=== PATIENT | male | born 1975 | race Caucasian/White ===

== ENCOUNTER 2022-04-04 00:48 | Emergency (ER) | payer OTHER, SELFPAY ==
[2022-04-04] VITALS (10 sets, daily range): BP systolic 97–148; BP diastolic 43–100; PULSE 49–92; RESP 12–16; TEMP 36.6–37.2; O2SAT 95–99; BMI 25.1
--- NOTE | 2022-04-04 01:10 | ED_ITS ---
HPI - Overdose General Chief Complaint: Overdose Stated Complaint: od, 4mg narcan given Time Seen by Provider: 04/04/22 00:50 Source: patient and EMS Mode of arrival: EMS Limitations: no limitations History of Present Illness HPI Narrative: 46-year-old male homeless with history of IV drug abuse presented by EMS after was given Narcan for unresponsiveness. Patient admitted to used 2 bags of heroin IV today patient [place]stander [place] patient was given 4 mg of Narcan nasally by police that patient responded to the Narcan instantly no require for BVM or CPR, patient initially was calm was EMS able to ambulate to the ambulance a soon as arrived to the ED patient started to be agitated and complaining of total body ache with generalized muscle cramps. Related Data Allergies Allergy/AdvReac Type Severity Reaction Status Date / Time ibuprofen [IBUPROFEN] Allergy Unknown RASH Unverified 02/10/20 14:56 Review of Systems Review of Systems: All other systems are reviewed and are negative Constitutional: Reports as per HPI and Reports no additional constitutional complaints Eyes: Reports as per HPI and Reports no additional eye complaints Reports system reviewed and no additional complaints, except as documented Cardiovascular: Reports as per HPI and Reports no additional cardiovascular complaints Respiratory: Reports as per HPI and Reports no additional respiratory complaints Gastrointestinal: Reports as per HPI and Reports no additional gastrointestinal complaints Genitourinary: Reports no additional female genitourinary complaints Musculoskeletal: Reports no additional musculoskeletal complaints Skin/Breast: Reports system reviewed and no additional complaints, except as docu Psychiatric: Reports no additional psychiatric complaints Endocrine: Reports no additional endocrine complaints Hematologic/Lymphatic: Reports no additional hematologic/lymphatic complaints Allergic/Immunologic: Reports no additional allergic/immunologic complaints Reports system reviewed and no additional complaints, except as documented and Reports Abnormal speech present [facility] Social History Social History Advance Directives: No Physical Exam Vital Signs: Vital Signs: Last Vital Signs Temp 97.8 F 04/04/22 04:00 Pulse 66 04/04/22 04:00 Resp 16 04/04/22 04:00 BP 115/56 L 04/04/22 04:00 Pulse Ox 98 04/04/22 04:00 O2 Del Method 04/04/22 04:00 BMI result Body Mass Index 25.1 Vital signs have been reviewed as appeared to be correct. Blood pressure normal. Heart rate normal. Respiration rate normal. Temperature normal. Oxygen saturation normal. Appearance: Agitated, Oriented, disheveled. acute distress due to muscle spasm and generalized body ache after using Narcan. Head: Normal external exam. Normocephalic. Atraumatic. No Moreland signs noted. No raccoon eyes noted Eyes: PERRLA. EOMI. Conjunctiva and sclera normal. Eyelids normal. ENT: TM's Normal. Pharynx normal. Uvula midline. Moist mucous membranes. No trismus noted. No drooling noted. No muffled voice noted. Neck: Normal inspection. Neck supple. FROM. No adenopathy. Thyroid Normal. No meningeal signs. No neck mass noted. CVS: Normal heart rate and rhythm. Heart sound normal. No murmurs noted. Pulses normal throughout. Respiratory: No respiratory distress. Painless inspiration. Breath sounds normal. No wheezes/rales/rhonchi noted. Chest nontender. No accessory muscle usage noted or decreased air movement noted. Abdomen: Soft and nontender. Bowel sounds normal in all 4 quadrants. No distention noted. No organomegaly noted. No visible injury noted. Back: No CVA tenderness. Full range of motion noted. Skin: Skin warm and dry. Normal skin color. Normal skin turgor. No rashes/lesions/lacerations noted. Extremities: No lower extremity edema. Extremities exhibit normal range of motion. Extremities nontender. Neuro: Oriented X 3. Cranial nerve exam: II-XII are grossly intact No motor deficit. No sensory deficit. Reflexes normal. Course Course Course Narrative: 46-year-old male brought in after found unresponsive after using IV heroin patient was given Narcan initially patient reacted to Narcan with agitation and nausea and vomiting, patient now is asymptomatic, tolerate p.o. intake. Will discharge the patient after care team evaluation and will discharge with Narcan to go home. Reevaluation(s) Reevaluation #1: Physician observation started at 5:10 . Patient placed in physician observation because the patient needed more time for medication to work and to see PT/case management for evaluation and the need for placement patient's vital sign were stable, patient is alert and oriented , neuro exam unchanged, unremarkable rest of physical exam. Time: 05:10 Medications Administered Discontinued Medications Generic Name Dose Route Start Last Admin Trade Name Freq PRN Reason Stop Dose Admin Acetaminophen 650 mg 04/04/22 03:06 04/04/22 03:33 Acetaminophen 325 Mg Tablet PO 04/04/22 03:07 650 mg ONCE ONE Administration Discharge Plan Discharge Clinical Impression: Substance abuse, Accidental overdose Patient Disposition: Still a Patient Instructions: Polysubstance Abuse (ED) Referrals: Physician,None [Primary Care Provider] -
--- NOTE | 2022-04-04 02:23 | PC.NURSE ---
pt ask for some water drank 240 ml
--- NOTE | 2022-04-04 03:31 | PC.NURSE ---
assumed care of patient. patient rounding complete. report headache. VSS. will continue to round hourly..
[2022-04-04] MEDS: Acetaminophen 325 MG TABLET 650 MG PO (03:33)
--- NOTE | 2022-04-04 04:02 | PC.NURSE ---
0400 rounding done vs taken pt was giving ham sandwich and naren lucinda for snack ,pt watching television ,call [facility] within reach .
--- NOTE | 2022-04-04 07:06 | PC.NURSE ---
pt asleep at this time. resp even and unlabored.
--- NOTE | 2022-04-04 10:37 | PC.NURSE ---
seems a little aggitated over trying to be placed at [facility] [place]
[2022-04-04 11:40] LABS: MANUAL DIFF FLAG NO
[2022-04-04 11:41] LABS: Basophils Absolute Auto 0.1 X10*3/uL (0.0-0.2); Basophils Percent Auto 0.6 % (0-2); Eosinophils Absolute Auto 0.2 X10*3/uL (0.0-0.4); Eosinophils Percent Auto 1.8 % (0-4); Hematocrit 33.4 % (42.0-52.0); Hemoglobin 10.9 g/dl (14.0-18.0); Imm Gran Abs Auto 0.06 X10*3/uL (0.00-0.03); Imm Gran Pct Auto 0.5 % (0.0-0.4); Lymphocytes Absolute Auto 3.1 X10*3/uL (1.2-4.9); Lymphocytes Percent Auto 27.6 % (20-40); Mean Corpuscular HGB Conc 32.6 g/dl (31.0-36.0); Mean Corpuscular Hemoglobin 28.5 pg (27.0-33.0); Mean Corpuscular Volume 87.2 fL (80.0-98.0); Monocytes Absolute Auto 0.7 X10*3/uL (0.1-1.2); Monocytes Percent Auto 6.3 % (2-11); Neutrophils Percent Auto 63.2 % (45-73); Platelet Count 330 X10*3/uL (160-400); Red Blood Count 3.83 X10*6/uL (4.60-5.80); Red Cell Distribution Width 14.6 % (11.0-16.0); White Blood Count 11.2 X10*3/uL (4.8-10.8)
[2022-04-04 11:59] LABS: Alanine Aminotransferase 74 U/L (0-40); Albumin Level 4.1 g/dL (3.5-5.0); Alkaline Phosphatase 113 U/L (39-117); Anion Gap 13 (12-20); Aspartate Amino Transferase 33 U/L (5-37); Bilirubin Total 0.3 mg/dL (0.0-1.0); Blood Urea Nitrogen 23 mg/dL (9-16); Calcium 9.1 mg/dL (8.4-10.2); Carbon Dioxide 31 mmol/L (22-29); Chloride 99 mmol/L (96-108); Estimated Glomerular Filt Rate > 60; Glucose Random 105 mg/dL (60-115); Potassium 4.4 mmol/L (3.3-5.1); Sodium 139 mmol/L (135-145); Total Protein 7.1 g/dL (6.5-8.0)
[2022-04-04 12:01] LABS: COVID-19 Test Negative (Negative); IDNOW Serial# 9DB6401D
[2022-04-04] MEDS: methADONE HCl 20 MG/2 ML ORAL.CONC 35 MG PO (13:23)
--- NOTE | 2022-04-04 15:18 | HO.SUDE ---
Met with pt in [facility] to discuss substance use. Pt semi difficult to engage in conversation due to agitation from having to transfer from main ED to the pod. Pt also irritable due to withdrawal symptoms and wanting to use a phone to call [facility]. Pt has had a [facility] for quite some time, has many admissions to [facility] and other levels of care. Pt reports leaving [facility] yesterday, 04/03, prior to completing treatment. Later that day, pt reports using 1 bag heroin, IV, which resulted in overdose. Pt reports this is 5th overdose and tearfully states I know if I go back out there I am going to . I know I shouldn't have left detox. Prior to [facility], pt reports using heroin, 1 bundle daily IV, as well as cocaine, IV, as much as I can get. Pt also reports drinking a pint of vodka daily. Pt had been receiving methadone earlier this year, believes he was on 40 mg. However, pt would have positive breathalyzers and was therefore unable to continue dosing. Pt is interested in receiving methadone and connecting to an [facility]TP. Pt reports that while at [facility], the plan was to increase to a stable dose and discharge with an appt at the OTP. Pt left prior to this being set up. Pt educated regarding [facility], as well as their walk in hours. Pt would like to return to [facility] to complete treatment there, however, [facility] unable to accept pt due to being discharged yesterday. [facility] has bed availabilty, will be calling shortly to complete phone intake. Discussed with CARE Team, RN. Spoke with KARENA Waddell, at [facility] regarding pts last methadone dose. Pt received 35 mg on 04/03. Spoke with provider regarding pts withdrawal symptoms, pt to receive 35 mg methadone.
--- NOTE | 2022-04-04 16:15 | PC.NURSE ---
While on the phone with [facility] center- pt handed the phone back to me saying I just can't do this, no one is listening to me . Luci THURSTON aware.
--- NOTE | 2022-04-04 16:20 | PC.NURSE ---
Addendum entered by Linda Durbin 04/04/22 16:33: Pt is now agreeable to go [facility] at this time. Original Note: Care team at bedside to notify pt that he must go to detox or leave facility
== END 2022-04-04 20:42 | disposition home or self-care (01) ==
PROVIDERS: Emergency Provider Emergency Medicine
DX: T40.1X1A Poisoning by heroin, accidental (unintentional), initial encounter (principal); Y92.521 Bus station as the place of occurrence of the external cause; F19.10 Other psychoactive substance abuse, uncomplicated; R45.1 Restlessness and agitation; M79.10 Myalgia, unspecified site; Z20.822 Contact with and (suspected) exposure to COVID-19
CPT/HCPCS: 80053; 85025; 87635; 99284; 99285

== ENCOUNTER 2022-08-10 18:12 | Emergency (ER) | payer OTHER, SELFPAY ==
[2022-08-10 18:30] VITALS: BP 125/55; BP 156/68; PULSE 58; PULSE 60; RESP 14; TEMP 36.6; O2SAT 96; O2SAT 97; BMI 23.7
--- NOTE | 2022-08-10 18:33 | PC.NURSE ---
pt to go back to [facility] when cleared medically, [facility] will pick pt up upon dc
--- NOTE | 2022-08-10 20:16 | ED.GENADULT ---
HPI - General Adult General Chief complaint: General Medical Stated complaint: LEG RESTLESNESS Time Seen by Provider: 08/10/22 20:16 Source: patient Mode of arrival: EMS Limitations: no limitations History of Present Illness HPI narrative: 46-year-old male who presents emergency department for evaluation of twitching in his lower extremities x3 days. The patient is currently in in-patient at [facility] for detox from alcohol and opiates. The patient states that he has been there for a at least a week. He states that he was drinking 1 pt of vodka per day he was also using opiates/heroin. He is currently on methadone. He states that at [facility] did add several new medications including pantoprazole, Latuda and Paxil. The patient states that his lower extremities continue to twitch, he also states he feels like his face and arms or twitching as well. He denied fever, chills, rhinorrhea, sore throat, cough. He denied numbness or weakness. The patient states that he is trying to get into a long-term treatment program is going to be at [facility] for several weeks until you get into another program. Related Data Previous Rx's Medication Instructions Recorded lorazepam 1 mg tablet (Ativan) 1 mg PO TID PRN Restless leg #10 08/11/22 tabs Allergies Allergy/AdvReac Type Severity Reaction Status Date / Time ibuprofen [IBUPROFEN] Allergy Unknown RASH Verified 04/04/22 13:22 Review of Systems Review of Systems: Yes all other systems are reviewed and are negative [facility] Past Medical History [facility] Narrative: Past medical history: Patient has history of injection drug use and has had several overdoses in the past. He also has a history of alcohol use disorder. Social history: He does smoke cigarettes. He does admit to drinking at least 1 pt of alcohol per day but has not been drinking since he has been at [facility]. He also admits to using injection heroin and he is on methadone. Social History Social History Alcohol intake: former Smoked in Last 30 Days: Yes Use of substances other than those prescribed or required for medical reasons: No Substance Use Type: Opiates Advance Directives: No Advance Directives Information Provided: Yes Physical Exam ED Vital Signs: Vital Signs - 24 hr 08/10/22 18:30 03/18/23 21:29 Temperature 97.8 F 97.5 F Pulse Rate 60 54 Respiratory Rate 14 14 Blood Pressure 125/55 L 112/57 L Pulse Oximetry 97 95 Oxygen Delivery Method Room Air Room Air BMI result Body Mass Index 23.7 Const General: cooperative and no acute distress Orientation/consciousness: oriented to person and oriented to place Limitations: no limitations HENMT Head: Yes normal to inspection, Yes normocephalic and Yes atraumatic Ears: external ears normal General nose exam: Normal external nose present Face and sinus: Yes normal facial exam Mouth: Normal oral and palatal mucosa present Throat: Yes posterior oropharynx normal Eyes General: appearance normal, both eyes and all related structures Pupils: Equal, round and reactive pupils present Neck Neck: Yes normal visual inspection, Yes no lymphadenopathy, Yes trachea midline and Yes supple Chest Chest palpation & inspection: normal inspection of the chest and normal palpation of entire chest wall Resp Effort & Inspection: normal respiratory effort and able to speak in complete sentences Auscultation: clear to auscultation bilaterally Cardio Rate: regular rate Rhythm: regular rhythm Heart sounds: S1 normal heart sound present, S2 normal heart sound present and no murmurs GI Inspection: Yes normal to inspection Palpation (GI): Soft to palpation, nontender and no guarding Auscultation: normal bowel sounds General: Yes no CVA tenderness Back/Spine/Pelvis Back: no CVA tenderness Skin General skin exam: no rashes or lesions noted Neuro General: oriented to person and oriented to place Cranial nerves: Yes CN's II-XII intact bilaterally and Yes Equal, round and reactive pupils present Cognition (Neuro): normal cognition Motor exam (neuro): 5/5 motor strength present throughout Extrem General: Yes normal to inspection Psych Appearance: grossly normal Speech and movement: Normal speech and movement present Affect: normal affect Attitude: cooperative Thought process: Normal thought process present Thought content: Normal thought content present Medications Administered Discontinued Medications Generic Name Dose Route Start Last Admin Trade Name Freq PRN Reason Stop Dose Admin Diphenhydramine HCl 50 mg 08/10/22 20:28 08/10/22 20:45 Diphenhydramine Hcl 25 Mg Capsule PO 08/10/22 20:29 50 mg ONCE ONE Administration Lorazepam 2 mg 08/10/22 21:30 08/10/22 21:37 Lorazepam 1 Mg Tablet PO 08/10/22 21:31 2 mg ONCE STA Administration Medical Decision Making Medical Decision Making [facility] Narrative: 46-year-old male who presents emergency department for evaluation of twitching of his lower extremities, twitching of his face and arms x3 days. Patient does have a history of opiate use and alcohol use disorder and is currently in a detox program at [facility] x1 week. Patient has been started on several new medications including Latuda and Paxil. The patient's vital signs were unremarkable. Patient's physical examination was also unremarkable. I ordered laboratory evaluation to include CBC, CMP, Magnesium, phosphorus. 0009: My independent interpretation of patient's labs are as follows: Normocytic anemia with H&H 11.6 and 35.2 which is chronic. CMP was normal except for an elevated ALT of 44. Magnesium and phosphorus were normal. At this time I do not have a clear cause for the patient's twitching but I am concerned that it may be a side effect of his Latuda which can cause extra pyramidal symptoms. I did discuss this with the patient. He was treated with Benadryl 50 mg orally and Ativan 2 mg orally with improvement of his symptoms. The patient is feeling better and he will be discharged back to [facility]. My recommendation is to stop the Latuda and give the patient Benadryl 50 mg 3 times a day as needed for twitching and Ativan 1 mg 3 times a day as needed for twitching has not relieved by the Benadryl. Lab Data 08/10/22 21:49 08/10/22 21:49 Labs: Lab Results 08/10/22 08/10/22 Range/Units 21:49 21:49 WBC 5.5 (4.8-10.8) X10*3/uL RBC 4.15 L (4.60-5.80) X10*6/uL Hgb 11.6 L (14.0-18.0) g/dl Hct 35.2 L (42.0-52.0) % MCV 84.8 (80.0-98.0) fL MCH 28.0 (27.0-33.0) pg MCHC 33.0 (31.0-36.0) g/dl RDW 13.7 (11.0-16.0) % Plt Count 218 D (160-400) X10*3/uL MPV 11.1 (9.4-12.4) fL Immature Gran % (Auto) 0.5 H (0.0-0.4) % Neut % (Auto) 34.0 L (45-73) % Lymph % (Auto) 52.8 H (20-40) % Gilliam % (Auto) 9.3 (2-11) % Eos % (Auto) 2.7 (0-4) % Baso % (Auto) 0.7 (0-2) % Lymph # (Auto) 2.9 (1.2-4.9) X10*3/uL Gilliam # (Auto) 0.5 (0.1-1.2) X10*3/uL Eos # (Auto) 0.2 (0.0-0.4) X10*3/uL Baso # (Auto) 0.0 (0.0-0.2) X10*3/uL Abs Immat Gran (auto) 0.03 (0.00-0.03) X10*3/uL Absolute Neuts (auto) 1.9 L (2.0-8.3) x10*3/uL Absolute Nucleated RBC 0.000 (0.0-0.012) X10*3/uL Nucleated RBC % (auto) 0.0 (0.0-0.2) /100WBC Sodium 139 (135-145) mmol/L Potassium 4.0 (3.3-5.1) mmol/L Chloride 102 (96-108) mmol/L Carbon Dioxide 27 (22-29) mmol/L Anion Gap 14 (12-20) BUN 26 H (9-16) mg/dL Creatinine 0.84 (0.5-1.4) mg/dL Estim Creat Clear Calc 126.3 Estimated GFR > 60 Random Glucose 113 (60-115) mg/dL Calcium 9.5 (8.4-10.2) mg/dL Phosphorus 4.5 (2.7-4.5) mg/dL Magnesium 1.7 (1.6-2.6) mg/dL Total Bilirubin 0.3 (0.0-1.0) mg/dL AST 26 (5-37) U/L ALT 44 H (0-40) U/L Alkaline Phosphatase 78 (39-117) U/L Total Protein 7.1 (6.5-8.0) g/dL Albumin 4.1 (3.5-5.0) g/dL Discharge Plan Discharge Clinical Impression: Adverse drug reaction, Combined pyramidal-extrapyramidal syndrome Patient Disposition: Xfer Other Transfer Details: [facility] Additional Instructions: Your laboratory evaluation included a CBC, CMP, magnesium and phosphorus. All of these tests were normal. At this time I believe that your twitching is in your face, arms and legs may be related to the Latuda and this is causing extra pyramidal symptoms. I am recommending that you stop this medication Recommending that you take Benadryl 50 mg every 6 hours as needed for twitching this and for twitching has not relieved by these medications I am recommending that you take Ativan 1 mg every 6 hours as needed. At this time, I believe you can be transferred back to [facility] for further management of your opiate and alcohol use disorder Prescriptions: New lorazepam [Ativan] 1 mg tablet 1 mg PO TID PRN (Reason: Restless leg) Qty: 10 0RF Rx Instructions: Patient may request partial fill
[2022-08-10] MEDS: diphenhydrAMINE HCL 25 MG CAPSULE 50 MG PO (20:45)
[2022-08-10 21:29] VITALS: BP 112/57; PULSE 54; RESP 14; TEMP 36.4; O2SAT 95
[2022-08-10] MEDS: LORazepam 1 MG TABLET 2 MG PO (21:37)
[2022-08-10 21:53] LABS: MANUAL DIFF FLAG NO
[2022-08-10 22:13] LABS: Basophils Percent Auto 0.7 % (0-2); Eosinophils Absolute Auto 0.2 X10*3/uL (0.0-0.4); Eosinophils Percent Auto 2.7 % (0-4); Hematocrit 35.2 % (42.0-52.0); Hemoglobin 11.6 g/dl (14.0-18.0); Imm Gran Abs Auto 0.03 X10*3/uL (0.00-0.03); Imm Gran Pct Auto 0.5 % (0.0-0.4); Lymphocytes Absolute Auto 2.9 X10*3/uL (1.2-4.9); Lymphocytes Percent Auto 52.8 % (20-40); Mean Corpuscular Volume 84.8 fL (80.0-98.0); Mean Platelet Volume 11.1 fL (9.4-12.4); Monocytes Absolute Auto 0.5 X10*3/uL (0.1-1.2); Monocytes Percent Auto 9.3 % (2-11); Neutrophils Absolute Auto 1.9 x10*3/uL (2.0-8.3); Platelet Count 218 X10*3/uL (160-400); Red Blood Count 4.15 X10*6/uL (4.60-5.80); Red Cell Distribution Width 13.7 % (11.0-16.0); White Blood Count 5.5 X10*3/uL (4.8-10.8)
[2022-08-10 22:16] LABS: Alanine Aminotransferase 44 U/L (0-40); Albumin Level 4.1 g/dL (3.5-5.0); Alkaline Phosphatase 78 U/L (39-117); Anion Gap 14 (12-20); Aspartate Amino Transferase 26 U/L (5-37); Bilirubin Total 0.3 mg/dL (0.0-1.0); Blood Urea Nitrogen 26 mg/dL (9-16); Calcium 9.5 mg/dL (8.4-10.2); Carbon Dioxide 27 mmol/L (22-29); Chloride 102 mmol/L (96-108); Creatinine Clr Calc Pharmacy 126.3; Estimated Glomerular Filt Rate > 60; Glucose Random 113 mg/dL (60-115); Magnesium 1.7 mg/dL (1.6-2.6); Phosphorus 4.5 mg/dL (2.7-4.5); Sodium 139 mmol/L (135-145); Total Protein 7.1 g/dL (6.5-8.0)
[2022-08-11 00:49] VITALS: BP 115/73; PULSE 56; RESP 12; TEMP 36.4; O2SAT 99
--- NOTE | 2022-08-11 01:21 | PC.NURSE ---
Discharge instructions given/explained to pt Ambulates safely/independently No SOB, able to speak in full sentences No respiratory distress aox3 pt to be picked up by [facility]
== END 2022-08-11 00:46 | disposition other institution (70) ==
PROVIDERS: Emergency Provider Emergency Medicine Emergency Medical Services
DX: G25.79 Other drug induced movement disorders (principal); T43.595A Adverse effect of other antipsychotics and neuroleptics, initial encounter; Y92.199 Unspecified place in other specified residential institution as the place of occurrence of the external cause; D64.9 Anemia, unspecified; F11.20 Opioid dependence, uncomplicated; Z79.899 Other long term (current) drug therapy
CPT/HCPCS: 36415; 80053; 83735; 84100; 85025; 99283; 99284

== ENCOUNTER 2022-08-23 14:07 | Emergency (ER) | payer OTHER, SELFPAY ==
[2022-08-23 14:34] VITALS: BP 126/86; PULSE 88; RESP 17; TEMP 36.1; O2SAT 97; BMI 25.0
--- NOTE | 2022-08-23 14:36 | ED.GENADULT ---
HPI - General Adult General Chief complaint: Eye Problems Stated complaint: L eye swelling Time Seen by Provider: 08/23/22 14:40 Source: patient Mode of arrival: ambulatory Limitations: no limitations History of Present Illness HPI narrative: Patient is a 46 year old assigned male at with a history of IVDU (1 month sober) presenting to the emergency department today with left eyebrow swelling and pain. Patient states that yesterday he woke up with left eye brow swelling. Patient states that the swollen area opened some and was leaking a small amount of blood. Patient denies any dizziness, lightheadedness, abdominal pain, nausea, vomiting, fever, chills, blurry vision, double vision, loss of vision, chest pain, difficulty breathing, shortness of breath, back pain, night sweats, pain with urination, increased urinary frequency, increased urinary urgency, blood in his urine or stool, syncope or a near syncopal episode, recent trauma or falls, bowel incontinence, bladder incontinence, bowel retention, bladder retention, or any other complaints at this time. Onset (ago): day(s) (1) Location: eyes (eyebrow) and left Radiation: non-radiation Severity: mild Severity scale (1-10): 3 Quality: dull Pain Consistency: constant Relieving factors: none Exacerbating factors: none Associated symptoms: denies other symptoms Treatments prior to arrival: none Related Data Previous Rx's Medication Instructions Recorded lorazepam 1 mg tablet (Ativan) 1 mg PO TID PRN Restless leg #10 08/11/22 tabs clindamycin HCl 300 mg capsule 300 mg PO TID 7 days #21 caps 08/23/22 doxycycline hyclate 100 mg tablet 100 mg PO BID 7 days #14 tabs 08/23/22 Allergies Allergy/AdvReac Type Severity Reaction Status Date / Time ibuprofen [IBUPROFEN] Allergy Unknown RASH Verified 04/04/22 13:22 henderson peppers Allergy Hives Uncoded 08/23/22 14:47 Review of Systems Constitutional: Constitutional: Reports no additional constitutional complaints, Denies chills, Denies fever(s) and Denies night sweats Eyes: Eyes: Reports no additional eye complaints, Denies blurry vision, Denies change in vision, Denies diplopia, Denies eye discharge, Denies loss of vision and Denies eye pain ENT: Denies dizziness Comments: left eyebrow swelling / pain Cardiovascular: Cardiovascular: Reports no additional cardiovascular complaints, Denies chest pain, Denies lightheadedness, Denies Loss of Consciousness and Denies dyspnea Respiratory: Respiratory: Reports no additional respiratory complaints and Denies dyspnea Gastrointestinal: Gastrointestinal: Reports no additional gastrointestinal complaints, Denies abdominal pain, Denies melena, Denies hematochezia, Denies change in bowel habits and Denies change in stool character Genitourinary: Genitourinary: Reports no additional male genitourinary complaints, Denies hematuria, Denies oliguria, Denies difficulty urinating, Denies dysuria, Denies urinary frequency, Denies urinary hesitancy, Denies urinary incontinence and Denies urinary urgency Musculoskeletal: Musculoskeletal: Reports no additional musculoskeletal complaints, Denies numbness and Denies tingling Neurologic: Denies dizziness, Denies loss of vision, Denies numbness and Denies tingling Psychiatric: Psychiatric: Reports no additional psychiatric complaints Endocrine: Endocrine: Reports no additional endocrine complaints Hematologic/Lymphatic: Hematologic/Lymphatic: Reports no additional hematologic/lymphatic complaints Allergic/Immunologic: Allergic/Immunologic: Reports no additional allergic/immunologic complaints PMFSH Past Medical History Attestation statement: The following information was validated with the patient. Source: old records reviewed and nursing notes reviewed Social History Social History Alcohol intake: never Smoked in Last 30 Days: No Use of substances other than those prescribed or required for medical reasons: No Substance Use Type: Opiates Advance Directives: No Advance Directives Information Provided: No Physical Exam ED Vital Signs: Vital Signs - 24 hr 08/23/22 14:34 Temperature 97.0 F Pulse Rate 88 Respiratory Rate 17 Blood Pressure 126/86 Pulse Oximetry 97 Oxygen Delivery Method Room Air BMI result Body Mass Index 25.0 Const General: cooperative, no acute distress, alert and awake Nutritional Appearance: well nourished Orientation/consciousness: patient oriented x3 Limitations: no limitations HENMT Head: Yes normal to inspection and Yes atraumatic Ears: hearing grossly normal bilaterally and external ears normal General nose exam: Normal external nose present, no nasal discharge noted and no epistaxis Face and sinus: Yes normal facial exam, No abrasion and No laceration Mouth: Normal oral and palatal mucosa present, no drooling and no muffled voice Eyes Other: minimal swelling to the left eyebrow with a small area open and leaking yellowish discharge Periorbital: periorbital findings normal Eyelids: Yes eyelids normal Conjunctivae: conjunctivae normal Pupils: Equal, round and reactive pupils present EOM: EOMs intact bilaterally Neck Neck: Yes normal visual inspection, Yes full ROM and Yes no lymphadenopathy Chest Chest palpation & inspection: normal inspection of the chest Resp Effort & Inspection: normal respiratory effort and able to speak in complete sentences Auscultation: clear to auscultation bilaterally Cardio Rate: regular rate Rhythm: regular rhythm GI Inspection: Yes normal to inspection Neuro General: patient oriented x3 and moves all extremities Cranial nerves: Yes Equal, round and reactive pupils present Cognition (Neuro): normal cognition Motor exam (neuro): 5/5 motor strength present throughout Sensory Exam: Normal double simultaneous stimulation for sensation Coordination: [id number] test normal Extrem General: Yes normal to inspection, Yes full ROM and Yes capillary refill normal Psych Appearance: grossly normal Mental Status: mental status grossly normal Affect: normal affect Attitude: cooperative Thought process: Normal thought process present Thought content: Normal thought content present Insight: Good insight present (Psych) Medical Decision Making Medical Decision Making MDM Narrative: Patient is a 46 year old assigned male at with a history of IVDU (1 month) presenting to the emergency department today with left eyebrow swelling. Patient's physical exam showed minimal swelling to the left medial eyebrow swelling with an open area draining yellow-jen discharge. I explained my physical exam findings to the patient. I answered all questions asked by the patient. I stressed the importance of the patient taking his medication as prescribed. I stressed the importance of the patient following up with his primary care provider and if symptoms persist - a general surgeon. I stressed the importance of the patient returning to the emergency department immediately if his symptoms were to worsen or if he were to develop any dizziness, shortness of breath, difficulty breathing, chest pain, blurry vision, loss of vision, nausea, vomiting, abdominal pain, fever, chills, back pain, or any other complaints. Patient verbalized agreement and understanding with this treatment plan and discharge. Differential Diagnosis Differential Diagnoses: The differential diagnosis associated with the presentation includes periorbital cellulitis Discharge Plan Discharge Clinical Impression: Preseptal cellulitis Patient Disposition: Home, Self-Care Instructions: Cellulitis (DC), Periorbital Cellulitis in Adults (ED) Additional Instructions: Follow up with your primary care provider and if this persists, a general surgeon. Return to the emergency department immediately if your symptoms worsen or if you develop any dizziness, shortness of breath, difficulty breathing, chest pain, blurry vision, loss of vision, nausea, vomiting, abdominal pain, fever, chills, back pain, or any other complaints. Prescriptions: New doxycycline hyclate 100 mg tablet 100 mg PO BID 7 Days Qty: 14 0RF clindamycin HCl 300 mg capsule 300 mg PO TID 7 Days Qty: 21 0RF No Action lorazepam [Ativan] 1 mg tablet 1 mg PO TID PRN (Reason: Restless leg) Qty: 10 0RF Rx Instructions: Patient may request partial fill Referrals: [facility] [place] General Surgeons [Provider Group] (Call to establish and follow up with a general surgeon.) [facility] [place]] (Call to establish and follow up with a primary care provider. If you already have a primary care provider, please follow up with them.) [facility] [place] [facility] [place]] (Call to establish and follow up with a primary care provider. If you already have a primary care provider, please follow up with them.) [facility] [place] [facility] [[place] Group] (Call to establish and follow up with a primary care provider. If you already have a primary care provider, please follow up with them.) Stand Alone Forms: Work/School Release Interventions: ED Discharge Assessment Last Done: 08/23/22 14:48 Discharge Date/Time: 08/23/22 14:48 Print Language: Marshallese
== END 2022-08-23 14:48 | disposition home or self-care (01) ==
LOC: HO.ED 14:47
PROVIDERS: Emergency Provider Emergency Medicine Emergency Medical Services
DX: L03.213 Periorbital cellulitis (principal); H57.12 Ocular pain, left eye
CPT/HCPCS: 99283

== ENCOUNTER 2023-04-02 17:55 | Inpatient (IN) | payer OTHER, SELFPAY ==
[2023-04-02 18:58] VITALS: BP 98/53; PULSE 58; RESP 18; TEMP 37.1; O2SAT 100
[2023-04-02 18:59] VITALS: BMI 24.5
--- NOTE | 2023-04-03 00:43 | PC.ADMIT ---
Pt is a 47 year old male admitted from [facility] for safety and containment after Pt verbalized? increased depression and SI with a plan to slit his throat. Per crises, Pt reported that he has been feeling down lately and it escalated to the point he began to have suicidal thoughts but no precipitating factor. He is alert and oriented x3, VSS, Covid negative, Tox screen is positive for Cocaine, opioids, benzodiazepines and marijuana. Pt was uncooperative and dismissive; He refused to sign legals and as well, refused admission assessment. Pt is currently in bed sleeping, respirations are even and unlabored, no sign of distress noted.?
--- NOTE | 2023-04-03 08:26 | HE.PHANOTE ---
RE METHADONE PT GETS 95MG OF METHADONE FROM [facility]. LAST DOSED 04/02 @ [facility] ED [place]
[2023-04-03] MEDS: Thiamine HCL 100 MG TABLET PO (08:28)
[2023-04-03] MEDS: Folic Acid 1 MG TABLET PO (08:28)
[2023-04-03] MEDS: methADONE HCl 20 MG/2 ML ORAL.CONC 95 MG PO (08:28)
[2023-04-03] MEDS: Multivitamin TABLET 1 TAB PO (08:29)
[2023-04-03 08:30] VITALS: BP 110/66; PULSE 62; RESP 18; TEMP 36.6; O2SAT 98
[2023-04-03] MEDS: LORazepam 1 MG TABLET 2 MG PO ×5 (08:37→20:57)
[2023-04-03 08:46] LABS: Cholesterol 174 mg/dL (<200); HDL Cholesterol 46 mg/dL (>40); LDL Cholesterol Calculated 105 mg/dL (<100); Triglycerides 117 mg/dL (<150)
--- NOTE | 2023-04-03 09:40 | HO.PSYADMNOT ---
HPI Date of Service: 04/03/23 Chief Complaint: depression /si Sources of Information: patient interviewed, chart reviewed and crisis/core team assessment reviewed HPI Subjective Notes: [place] Warning and Conditional Voluntary Narrative: Patient is a 47-year-old male with history of depression, anxiety, PTSD, hep C, alcohol dependence, 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 Patient is a poor historian, in active withdrawal and not wanting to talk. He does say that he has been drinking at least 10 drinks a day for weeks; reports history of alcohol withdrawal seizures but that has not happened in a couple of years. Says depression and alcohol abuse go together. Denies any SI and says he safe on the unit. No AVH. Otherwise difficult with which to engage. Past Psychiatric History: History of 3 psychiatric hospitalizations; last psychiatric hospitalization 2 years ago History of detox, [address] Verbally denied history of suicide attempt to ED provider; however documentation reports history of 1 attempt Past medications: Seroquel 200 mg q.h.s., clonidine, gabapentin 800 mg t.i.d. Wellbutrin Medical Evaluation Reviewed: Yes [facility] Medical History (Updated 04/04/23 @ 14:03 by Juan Manuel Scott MD) Cocaine use disorder Opioid dependence Alcohol dependence PTSD (post-traumatic stress disorder) MDD (major depressive disorder), recurrent severe, without psychosis Family History: Deferred Social History: Per documentation: Currently homeless No family or friend support Raised in [place] with his mother. Biological father incarcerated when patient was 5 years old; no contact Patient has 13-year-old daughter with no contact GED History of incarceration for 4 years for theft/drug charges Substance History: Heroin, cocaine, cannabis starting age 27; history of alcohol withdrawal seizures; currently using IV heroin/cocaine Trauma History: History of trauma Diagnostics Vital Signs (24Hr): Vital Signs - 24 hr 04/02/23 18:58 04/03/23 08:30 Temperature 98.7 F 97.9 F Pulse Rate 58 62 Respiratory Rate 18 18 Blood Pressure 98/53 L 110/66 Pulse Oximetry 100 98 Oxygen Delivery Method Room Air Room Air BMI result Body Mass Index 24.5 Labs Labs: Laboratory Results - last 48 hr 04/03/23 08:08 Triglycerides 117 Cholesterol 174 LDL Cholesterol, Calc 105 H HDL Cholesterol 46 Meds/Allergies Meds Home Medications Medication Instructions Recorded Confirmed Type albuterol sulfate 90 mcg/actuation 2 puff inhalation QID PRN Wheezing 04/02/23 04/02/23 History aerosol inhaler bupropion HCl 150 mg 24 hr tablet, 150 mg PO QAM 04/02/23 04/02/23 History extended release (Wellbutrin XL) buspirone 5 mg tablet 5 mg PO TID 04/02/23 04/02/23 History gabapentin 800 mg tablet 800 mg PO TID 04/02/23 04/02/23 History hydroxyzine pamoate 50 mg capsule 50 mg PO QID PRN Anxiety 04/02/23 04/02/23 History (Vistaril) melatonin 3 mg tablet 9 mg PO BEDTIME PRN Insomnia 04/02/23 04/02/23 History methadone 10 mg/5 mL oral solution 95 mg PO DAILY 04/02/23 04/02/23 History prazosin 2 mg capsule 4 mg PO BEDTIME 04/02/23 04/02/23 History propranolol 10 mg tablet 10 mg PO TID 04/02/23 04/02/23 History quetiapine 200 mg tablet (Seroquel) 200 mg PO BEDTIME 04/02/23 04/02/23 History Allergies Allergies Allergy/AdvReac Type Severity Reaction Status Date / Time ibuprofen [IBUPROFEN] Allergy Unknown RASH Verified 04/04/22 13:22 henderson peppers Allergy Hives Uncoded 08/23/22 14:47 Mental Status Exam Mental Status Exam Narrative: Pt is alert and oriented; behavior is irritable, lying in bed, eyes closed; patient in discomfort due to withdrawal; dressed in casual attire, disheveled, poor hygiene; mood is described as depressed and affect congruent; eye contact limited; Speech soft, few words; psychomotor retardation present; thought process goal directed; Thought content is on tx, hopelessness; otherwise pertinent to relevant topics and without any delusional content, paranoid ideations or grandiosity; denies any SI/HI. There is no evidence of perceptual disturbance. Patients insight and judgment impaired Assessment & Plan Assessment & Plan (1) MDD (major depressive disorder), recurrent severe, without psychosis: Status: Acute Code(s): F33.2 - Major depressive disorder, recurrent severe without psychotic features (2) PTSD (post-traumatic stress disorder): Status: Acute Code(s): F43.10 - Post-traumatic stress disorder, unspecified (3) Alcohol dependence: Status: Acute Code(s): F10.20 - Alcohol dependence, uncomplicated (4) Opioid dependence: Status: Acute Code(s): F11.20 - Opioid dependence, uncomplicated (5) Cocaine use disorder: Status: Acute Code(s): F14.10 - Cocaine abuse, uncomplicated (6) Hepatitis C: Status: Acute Code(s): B19.20 - Unspecified viral hepatitis C without hepatic coma Assessment and Plan: Per patient/per note Plan Patient is a 47-year-old male with history of depression, anxiety, PTSD, hep C, alcohol dependence, 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 Patient is a poor historian, in active withdrawal and not wanting to talk. He does say that he has been drinking at least 10 drinks a day for weeks; reports history of alcohol withdrawal seizures but that has not happened in a couple of years. Says depression and alcohol abuse go together. Denies any SI and says he safe on the unit. No AVH. Otherwise difficult with which to engage. Plan: CV Q 15 minute checks Start CIWA with p.r.n. Ativan Will also schedule Ativan as well given history of withdrawal seizures and patient scoring high on CIWA Will consider Librium Order LFTs; not ordered at ED Will hold off on other medications for mood/anxiety until patient is more able to engage Reviewed labs from sending facility: CBC, lytes, BUN/creatinine, TSH WNL Positive for THC, cocaine, opiates, benzos COVID negative Patient educated on: diagnosis, medication risk/benefits and substance abuse Informed Consent: understands Reason for continued inpatient stay Substantial Risk for: rapid decompensation and med/psych decompensation Statement Statement: I have reviewed the history and physical and performed a pertinent examination on my patient. No changes have occurred unless specified. If the History and Physical was not performed prior to admission, the Hospitalist's service will be consulted for completing the admission physical. Time Spent With Patient Time: Total time managing care of this patient today ____ minutes.
[2023-04-03 10:48] LABS: Estimated Average Glucose 117 mg/dL; Hemoglobin A1c % 5.7 % (<6.0)
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
[2023-04-03] MEDS: Gabapentin 300 MG CAPSULE PO ×2 (14:55→20:57)
[2023-04-03 17:10] VITALS: BP 109/52; PULSE 56; TEMP 36.2; O2SAT 97
[2023-04-03] MEDS: Acetaminophen 325 MG TABLET 650 MG PO (21:02)
[2023-04-04] MEDS: Multivitamin TABLET 1 TAB PO (08:12)
[2023-04-04] MEDS: LORazepam 1 MG TABLET PO ×3 (08:12→10:56)
[2023-04-04] MEDS: Gabapentin 300 MG CAPSULE PO ×3 (08:12→20:25)
[2023-04-04] MEDS: methADONE HCl 20 MG/2 ML ORAL.CONC 95 MG PO (08:12)
[2023-04-04] MEDS: Thiamine HCL 100 MG TABLET PO (08:13)
[2023-04-04] MEDS: Folic Acid 1 MG TABLET PO (08:13)
[2023-04-04 08:15] VITALS: BP 124/67; PULSE 98; RESP 16; TEMP 36.6; O2SAT 98
--- NOTE | 2023-04-04 09:36 | P.PNPSI_ITS ---
Subjective Subjective Date of Service: 04/04/23 Reason For Visit: depression /si Interim History: Met with patient; discussed with team; review chart Patient remains with significant alcohol withdrawal symptoms and elevated scores on CIWA assessment. Expanded p.r.n. Ativan coverage. Remains in bed; Patient politely declines to talk but expresses thanks for help. Says in the past he is taking Librium and Ativan. Mental Status Exam Mental Status Exam Narrative: Pt is alert and oriented; behavior is irritable, lying in bed, eyes closed; patient in discomfort due to withdrawal; dressed in casual attire, disheveled, poor hygiene; mood is described as depressed and affect congruent; eye contact limited; Speech soft, few words; psychomotor retardation present; thought process goal directed; Thought content is on tx, hopelessness; otherwise pertinent to relevant topics and without any delusional content, paranoid ideations or grandiosity; denies any SI/HI. There is no evidence of perceptual disturbance. Patients insight and judgment impaired Diagnostics Vital Signs (24Hr): Vital Signs - 24 hr 04/03/23 17:10 Temperature 97.1 F Pulse Rate 56 Blood Pressure 109/52 L Pulse Oximetry 97 Oxygen Delivery Method Room Air BMI result Body Mass Index 24.5 Labs Labs: Laboratory Results - last 48 hr 04/03/23 04/03/23 08:08 10:21 Estimat Average Glucose 117 Hemoglobin A1c % 5.7 Triglycerides 117 Cholesterol 174 LDL Cholesterol, Calc 105 H HDL Cholesterol 46 Medications Medications Current Medications Acetaminophen (Acetaminophen 325 Mg Tablet) 650 mg PO Q6H PRN PRN Reason: Headache/Pain Mild Scale (1-3) Last Admin: 04/03/23 21:02 Dose: 650 mg Al Hydroxide/Mg Hydroxide (Magnesium Hydrox/Alum Hydrox 30 Ml Oral.Susp) 30 ml PO Q6H PRN PRN Reason: Heartburn/Nausea Folic Acid (Folic Acid 1 Mg Tablet) 1 mg PO DAILY [facility] Last Admin: 04/04/23 08:13 Dose: 1 mg Gabapentin (Gabapentin 300 Mg Capsule) 300 mg PO TID [facility] Last Admin: 04/04/23 08:12 Dose: 300 mg Gabapentin (Gabapentin 300 Mg Capsule) 300 mg PO ONCE [facility] Hydroxyzine HCl (Hydroxyzine Hcl 25 Mg Tablet) 25 mg PO Q6H PRN PRN Reason: Anxiety Lorazepam (Lorazepam 1 Mg Tablet) 1 mg PO TID [facility] Last Admin: 04/04/23 08:12 Dose: 1 mg Lorazepam (Lorazepam 1 Mg Tablet) 1 mg PO Q2H PRN PRN Reason: CIWA 6-8 Last Admin: 04/04/23 08:22 Dose: 1 mg Lorazepam (Lorazepam 1 Mg Tablet) 2 mg PO Q2H PRN PRN Reason: CIWA 9 to 17 Lorazepam (Lorazepam 1 Mg Tablet) 3 mg PO Q2H PRN PRN Reason: CIWA 18 and above Magnesium Hydroxide (Milk Of Magnesia 30 Ml Oral.Susp) 30 ml PO DAILY PRN PRN Reason: Constipation Methadone HCl (Methadone Hcl 20 Mg/2 Ml Oral.Conc) 95 mg PO DAILY [facility] Last Admin: 04/04/23 08:12 Dose: 95 mg Multivitamins/Vitamin C (Multivitamin Tablet) 1 tab PO DAILY [facility] Last Admin: 04/04/23 08:12 Dose: 1 tab Nicotine Polacrilex (Nicotine Polacrilex 2 Mg Gum) 4 mg BUCCAL Q2H PRN PRN Reason: Nicotine Cravings Olanzapine (Olanzapine 5 Mg Tablet) 5 mg PO TID PRN PRN Reason: agitation Thiamine HCl (Thiamine Hcl 100 Mg Tablet) 100 mg PO DAILY [facility] Last Admin: 04/04/23 08:13 Dose: 100 mg Trazodone HCl (Trazodone Hcl 50 Mg Tablet) 50 mg PO BEDTIME MRX1 PRN PRN Reason: Insomnia Allergies Allergies Allergy/AdvReac Type Severity Reaction Status Date / Time ibuprofen [IBUPROFEN] Allergy Unknown RASH Verified 04/04/22 13:22 henderson peppers Allergy Hives Uncoded 08/23/22 14:47 Assessment & Plan Assessment & Plan (1) Routine medical exam: Status: Acute Code(s): Z00.00 - Encounter for general adult medical examination without abnormal findings Plan Patient is a 47-year-old male with history of depression, anxiety, PTSD, hep C, alcohol dependence, 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 Patient is a poor historian, in active withdrawal and not wanting to talk. He does say that he has been drinking at least 10 drinks a day for weeks; reports history of alcohol withdrawal seizures but that has not happened in a couple of years. Says depression and alcohol abuse go together. Denies any SI and says he safe on the unit. No AVH. Otherwise difficult with which to engage. Hospital course: 04/04 remains irritable, in bed, high scoring on CIWA. Not sure about history of medications. Gave Librium 25 mg 1 time dose; will see how patient responds Plan: CV Q 15 minute checks CIWA with p.r.n. Ativan; lowered parameters to get p.r.n. Ativan given continued alcohol withdrawal symptoms and history of alcohol to all seizures Ativan 1 mg t.i.d. for now; however may switch to Librium Schedule gabapentin 300 mg t.i.d. to help with withdrawal symptoms; not sure if will continue LFTs pending: Will hold off on other medications for mood/anxiety until patient is more able to engage Reviewed labs from sending facility: CBC, lytes, BUN/creatinine, TSH WNL Positive for THC, cocaine, opiates, benzos COVID negative Patient educated on: diagnosis, medication risk/benefits and substance abuse Informed Consent: understands Reason for continued inpatient stay Substantial Risk for: harm to self Time Spent With Patient Time: Total time managing care of this patient today ____ minutes.
[2023-04-04] MEDS: chlordiazePOXIDE HCl 25 MG CAPSULE PO ×2 (12:41→13:52)
[2023-04-04 14:08] LABS: Alanine Aminotransferase 38 U/L (0-40); Albumin Level 4.1 g/dL (3.5-5.0); Alkaline Phosphatase 87 U/L (39-117); Aspartate Amino Transferase 28 U/L (5-37); Bilirubin Direct < 0.2 mg/dL (0.0-0.5); Bilirubin Total 0.2 mg/dL (0.0-1.0); Total Protein 7.5 g/dL (6.5-8.0)
[2023-04-04 16:45] VITALS: BP 115/59; PULSE 53; TEMP 36.2; O2SAT 99
[2023-04-04] MEDS: LORazepam 1 MG TABLET 2 MG PO ×2 (16:49→20:33)
[2023-04-04] MEDS: Acetaminophen 325 MG TABLET 650 MG PO (16:49)
[2023-04-04] MEDS: chlordiazePOXIDE HCl 25 MG CAPSULE 50 MG PO (20:25)
[2023-04-05] MEDS: Folic Acid 1 MG TABLET PO (09:00)
[2023-04-05] MEDS: Thiamine HCL 100 MG TABLET PO (09:00)
[2023-04-05] MEDS: Gabapentin 300 MG CAPSULE PO ×3 (09:00→21:59)
[2023-04-05] MEDS: Multivitamin TABLET 1 TAB PO (09:00)
[2023-04-05] MEDS: chlordiazePOXIDE HCl 25 MG CAPSULE 50 MG PO ×2 (09:00→21:59)
[2023-04-05] MEDS: methADONE HCl 20 MG/2 ML ORAL.CONC 95 MG PO (09:01)
[2023-04-05 09:04] VITALS: BP 121/68; PULSE 63; RESP 18; TEMP 36.6; O2SAT 98
--- NOTE | 2023-04-05 10:40 | P.PNPSI_ITS ---
Subjective Subjective Date of Service: 04/05/23 Reason For Visit: depression /si Interim History: Patient continues with alcohol withdrawal symptomsl responding well to librium; CIWA = 7 today. Remains in bed; sleeping much of day. Patient politely declines to talk. Medication Compliance: Yes Side effects from medications: No Attending Groups: No Review of Systems Acute medical concerns: No Medical Review of Systems: unchanged Review of Systems Review of Systems Negative except HPI/interval history. Mental Status Exam Mental Status Exam Narrative: Pt is alert and oriented; behavior is irritable, lying in bed, eyes closed; dressed in casual attire, disheveled, poor hygiene; mood is described as depressed and affect congruent; eye contact limited; Speech soft, few words; psychomotor retardation present; thought process goal directed; Thought content is on tx, hopelessness; otherwise pertinent to relevant topics and without any delusional content, paranoid ideations or grandiosity; denies any SI/HI. There is no evidence of perceptual disturbance. Patients insight and judgment impaired Diagnostics Vital Signs (24Hr): Vital Signs - 24 hr 04/04/23 16:45 04/05/23 09:04 Temperature 97.1 F 98 F Pulse Rate 53 63 Respiratory Rate 18 Blood Pressure 115/59 L 121/68 Pulse Oximetry 99 98 Oxygen Delivery Method Room Air Room Air BMI result Body Mass Index 24.5 Labs Labs: Laboratory Results - last 48 hr 04/03/23 04/04/23 10:21 13:44 Estimat Average Glucose 117 Hemoglobin A1c % 5.7 Total Bilirubin 0.2 Direct Bilirubin < 0.2 AST 28 ALT 38 Alkaline Phosphatase 87 Total Protein 7.5 Albumin 4.1 Medications Medications Current Medications Acetaminophen (Acetaminophen 325 Mg Tablet) 650 mg PO Q6H PRN PRN Reason: Headache/Pain Mild Scale (1-3) Last Admin: 04/04/23 16:49 Dose: 650 mg Al Hydroxide/Mg Hydroxide (Magnesium Hydrox/Alum Hydrox 30 Ml Oral.Susp) 30 ml PO Q6H PRN PRN Reason: Heartburn/Nausea Chlordiazepoxide HCl (Chlordiazepoxide Hcl 25 Mg Capsule) 50 mg PO BID [facility] Stop: 04/06/23 23:50 Last Admin: 04/05/23 09:00 Dose: 50 mg Chlordiazepoxide HCl (Chlordiazepoxide Hcl 25 Mg Capsule) 25 mg PO BID [facility] Folic Acid (Folic Acid 1 Mg Tablet) 1 mg PO DAILY [facility] Last Admin: 04/05/23 09:00 Dose: 1 mg Gabapentin (Gabapentin 300 Mg Capsule) 300 mg PO TID [facility] Last Admin: 04/05/23 09:00 Dose: 300 mg Gabapentin (Gabapentin 300 Mg Capsule) 300 mg PO ONCE [facility] Hydroxyzine HCl (Hydroxyzine Hcl 25 Mg Tablet) 25 mg PO Q6H PRN PRN Reason: Anxiety Lorazepam (Lorazepam 1 Mg Tablet) 1 mg PO Q2H PRN PRN Reason: CIWA 6-8 Last Admin: 04/04/23 10:56 Dose: 1 mg Lorazepam (Lorazepam 1 Mg Tablet) 2 mg PO Q2H PRN PRN Reason: CIWA 9 to 17 Last Admin: 04/04/23 20:33 Dose: 2 mg Lorazepam (Lorazepam 1 Mg Tablet) 3 mg PO Q2H PRN PRN Reason: CIWA 18 and above Magnesium Hydroxide (Milk Of Magnesia 30 Ml Oral.Susp) 30 ml PO DAILY PRN PRN Reason: Constipation Methadone HCl (Methadone Hcl 20 Mg/2 Ml Oral.Conc) 95 mg PO DAILY [facility] Last Admin: 04/05/23 09:01 Dose: 95 mg Multivitamins/Vitamin C (Multivitamin Tablet) 1 tab PO DAILY [facility] Last Admin: 04/05/23 09:00 Dose: 1 tab Nicotine Polacrilex (Nicotine Polacrilex 2 Mg Gum) 4 mg BUCCAL Q2H PRN PRN Reason: Nicotine Cravings Olanzapine (Olanzapine 5 Mg Tablet) 5 mg PO TID PRN PRN Reason: agitation Thiamine HCl (Thiamine Hcl 100 Mg Tablet) 100 mg PO DAILY [facility] Last Admin: 04/05/23 09:00 Dose: 100 mg Trazodone HCl (Trazodone Hcl 50 Mg Tablet) 50 mg PO BEDTIME MRX1 PRN PRN Reason: Insomnia Allergies Allergies Allergy/AdvReac Type Severity Reaction Status Date / Time ibuprofen [IBUPROFEN] Allergy Unknown RASH Verified 04/04/22 13:22 henderson peppers Allergy Hives Uncoded 08/23/22 14:47 Assessment & Plan Assessment & Plan (1) Routine medical exam: Status: Acute Code(s): Z00.00 - Encounter for general adult medical examination without abnormal findings Plan Patient is a 47-year-old male with history of depression, anxiety, PTSD, hep C, alcohol dependence, 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 Patient is a poor historian, in active withdrawal and not wanting to talk. He does say that he has been drinking at least 10 drinks a day for weeks; reports history of alcohol withdrawal seizures but that has not happened in a couple of years. Says depression and alcohol abuse go together. Denies any SI and says he safe on the unit. No AVH. Otherwise difficult with which to engage. Hospital course: 04/04 remains irritable, in bed, high scoring on CIWA. Not sure about history of medications. Gave Librium 25 mg 1 time dose; will see how patient responds Plan: CV Q 15 minute checks CIWA with p.r.n. Ativan; lowered parameters to get p.r.n. Ativan given continued alcohol withdrawal symptoms and history of alcohol to all seizures Ativan 1 mg t.i.d. for now; however may switch to Librium Schedule gabapentin 300 mg t.i.d. to help with withdrawal symptoms; not sure if will continue LFTs pending: Will hold off on other medications for mood/anxiety until patient is more able to engage Reviewed labs from sending facility: CBC, lytes, BUN/creatinine, TSH WNL Positive for THC, cocaine, opiates, benzos COVID negative 04/05/23 continue tx plan Reason for continued inpatient stay Substantial Risk for: harm to self, inability to function and rapid decompensati on Time Spent With Patient Time: Total time managing care of this patient today ____ minutes.
[2023-04-05 18:05] VITALS: BP 127/77; PULSE 73; TEMP 36.1
[2023-04-05] MEDS: LORazepam 1 MG TABLET 2 MG PO (18:14)
[2023-04-05] MEDS: Acetaminophen 325 MG TABLET 650 MG PO (18:14)
[2023-04-06] MEDS: LORazepam 1 MG TABLET 2 MG PO (02:40)
[2023-04-06 08:45] VITALS: BP 128/62; PULSE 56; RESP 18; TEMP 36.4; O2SAT 98
[2023-04-06] MEDS: methADONE HCl 20 MG/2 ML ORAL.CONC 95 MG PO (08:51)
[2023-04-06] MEDS: chlordiazePOXIDE HCl 25 MG CAPSULE 50 MG PO ×2 (08:52→19:41)
[2023-04-06] MEDS: Folic Acid 1 MG TABLET PO (08:52)
[2023-04-06] MEDS: Thiamine HCL 100 MG TABLET PO (08:52)
[2023-04-06] MEDS: Multivitamin TABLET 1 TAB PO (08:52)
[2023-04-06] MEDS: Gabapentin 300 MG CAPSULE PO ×3 (08:52→19:42)
[2023-04-06] MEDS: Nicotine Polacrilex 2 MG GUM 4 MG BUCCAL (12:25)
[2023-04-06] MEDS: Nicotine 21 MG PATCH.TD24 TRANSDERMA (12:40)
[2023-04-06 18:00] VITALS: BP 133/66; PULSE 69; TEMP 36.2; O2SAT 96
--- NOTE | 2023-04-06 19:30 | HO.PSYCHPN ---
Subjective Subjective Date of Service: 04/06/23 Reason For Visit: depression /si Subjective Notes: Conditional Voluntary Interim History: Patient reporting fewer withdrawal symptoms. pt physically more comfortable; worried that he has not been able to reach GF. GF is in another treatment program- he has left a message for her with phone number; he is frequently preseverating on needing to reach her as they have not been apart for long in past. No SI or HI Medication Compliance: Yes Side effects from medications: No Attending Groups: No Review of Systems Acute medical concerns: No Medical Review of Systems: unchanged Review of Systems Review of Systems Negative except HPI/interval history. Mental Status Exam Mental Status Exam Narrative: Pt is alert and oriented; behavior is irritable, dressed in casual attire, disheveled, poor hygiene; mood is described as depressed and affect congruent; eye contact limited; Speech soft, few words; psychomotor retardation present; thought process goal directed; Thought content is on tx, hopelessness; otherwise pertinent to relevant topics and without any delusional content, paranoid ideations or grandiosity; denies any SI/HI. There is no evidence of perceptual disturbance. Patients insight and judgment impaired Diagnostics Vital Signs (24Hr): Vital Signs - 24 hr 04/06/23 08:45 04/06/23 18:00 Temperature 97.6 F 97.2 F Pulse Rate 56 69 Respiratory Rate 18 Blood Pressure 128/62 133/66 Pulse Oximetry 98 96 Oxygen Delivery Method Room Air Room Air BMI result Body Mass Index 24.5 Medications Medications Current Medications Acetaminophen (Acetaminophen 325 Mg Tablet) 650 mg PO Q6H PRN PRN Reason: Headache/Pain Mild Scale (1-3) Last Admin: 04/05/23 18:14 Dose: 650 mg Al Hydroxide/Mg Hydroxide (Magnesium Hydrox/Alum Hydrox 30 Ml Oral.Susp) 30 ml PO Q6H PRN PRN Reason: Heartburn/Nausea Chlordiazepoxide HCl (Chlordiazepoxide Hcl 25 Mg Capsule) 50 mg PO BID [facility] Stop: 04/06/23 23:50 Last Admin: 04/06/23 08:52 Dose: 50 mg Chlordiazepoxide HCl (Chlordiazepoxide Hcl 25 Mg Capsule) 25 mg PO BID [facility] Folic Acid (Folic Acid 1 Mg Tablet) 1 mg PO DAILY [facility] Last Admin: 04/06/23 08:52 Dose: 1 mg Gabapentin (Gabapentin 300 Mg Capsule) 300 mg PO TID [facility] Last Admin: 11/12/23 14:02 Dose: 300 mg Gabapentin (Gabapentin 300 Mg Capsule) 300 mg PO ONCE [facility] Hydroxyzine HCl (Hydroxyzine Hcl 25 Mg Tablet) 25 mg PO Q6H PRN PRN Reason: Anxiety Lorazepam (Lorazepam 1 Mg Tablet) 1 mg PO Q2H PRN PRN Reason: CIWA 6-8 Last Admin: 04/04/23 10:56 Dose: 1 mg Lorazepam (Lorazepam 1 Mg Tablet) 2 mg PO Q2H PRN PRN Reason: CIWA 9 to 17 Last Admin: 04/06/23 02:40 Dose: 2 mg Lorazepam (Lorazepam 1 Mg Tablet) 3 mg PO Q2H PRN PRN Reason: CIWA 18 and above Magnesium Hydroxide (Milk Of Magnesia 30 Ml Oral.Susp) 30 ml PO DAILY PRN PRN Reason: Constipation Methadone HCl (Methadone Hcl 20 Mg/2 Ml Oral.Conc) 95 mg PO DAILY [facility] Last Admin: 04/06/23 08:51 Dose: 95 mg Multivitamins/Vitamin C (Multivitamin Tablet) 1 tab PO DAILY [facility] Last Admin: 04/06/23 08:52 Dose: 1 tab Nicotine (Nicotine 21 Mg Patch.Td24) 21 mg TRANSDERMA DAILY [facility] Last Admin: 04/06/23 12:40 Dose: 21 mg Nicotine Polacrilex (Nicotine Polacrilex 2 Mg Gum) 4 mg BUCCAL Q2H PRN PRN Reason: Nicotine Cravings Last Admin: 04/06/23 12:25 Dose: 4 mg Olanzapine (Olanzapine 5 Mg Tablet) 5 mg PO TID PRN PRN Reason: agitation Thiamine HCl (Thiamine Hcl 100 Mg Tablet) 100 mg PO DAILY [facility] Last Admin: 04/06/23 08:52 Dose: 100 mg Trazodone HCl (Trazodone Hcl 50 Mg Tablet) 50 mg PO BEDTIME MRX1 PRN PRN Reason: Insomnia Allergies Allergies Allergy/AdvReac Type Severity Reaction Status Date / Time ibuprofen [IBUPROFEN] Allergy Unknown RASH Verified 04/04/22 13:22 henderson peppers Allergy Hives Uncoded 08/23/22 14:47 Assessment & Plan Assessment & Plan (1) Routine medical exam: Status: Acute Code(s): Z00.00 - Encounter for general adult medical examination without abnormal findings Plan Patient is a 47-year-old male with history of depression, anxiety, PTSD, hep C, alcohol dependence, 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 Patient is a poor historian, in active withdrawal and not wanting to talk. He does say that he has been drinking at least 10 drinks a day for weeks; reports history of alcohol withdrawal seizures but that has not happened in a couple of years. Says depression and alcohol abuse go together. Denies any SI and says he safe on the unit. No AVH. Otherwise difficult with which to engage. Hospital course: 04/04 remains irritable, in bed, high scoring on CIWA. Not sure about history of medications. Gave Librium 25 mg 1 time dose; will see how patient responds Plan: CV Q 15 minute checks CIWA with p.r.n. Ativan; lowered parameters to get p.r.n. Ativan given continued alcohol withdrawal symptoms and history of alcohol to all seizures Ativan 1 mg t.i.d. for now; however may switch to Librium Schedule gabapentin 300 mg t.i.d. to help with withdrawal symptoms; not sure if will continue LFTs pending: Will hold off on other medications for mood/anxiety until patient is more able to engage Reviewed labs from sending facility: CBC, lytes, BUN/creatinine, TSH WNL Positive for THC, cocaine, opiates, benzos COVID negative 04/05/23 continue tx plan 04/06/23 continue tx paln Reason for continued inpatient stay Substantial Risk for: harm to self, inability to function and rapid decompensation Time Spent With Patient Time: Total time managing care of this patient today ____ minutes.
[2023-04-07] MEDS: LORazepam 1 MG TABLET PO (06:19)
[2023-04-07 08:23] VITALS: BP 98/61; PULSE 57; RESP 16; TEMP 36.1; O2SAT 96
[2023-04-07] MEDS: Folic Acid 1 MG TABLET PO (08:31)
[2023-04-07] MEDS: Thiamine HCL 100 MG TABLET PO (08:32)
[2023-04-07] MEDS: methADONE HCl 20 MG/2 ML ORAL.CONC 95 MG PO (08:32)
[2023-04-07] MEDS: Gabapentin 300 MG CAPSULE PO ×3 (08:32→20:48)
[2023-04-07] MEDS: chlordiazePOXIDE HCl 25 MG CAPSULE PO ×2 (08:32→21:21)
[2023-04-07] MEDS: Multivitamin TABLET 1 TAB PO (08:32)
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
[2023-04-07] MEDS: Nicotine 21 MG PATCH.TD24 TRANSDERMA (11:45)
[2023-04-07] MEDS: LORazepam 1 MG TABLET 2 MG PO ×2 (14:07→20:48)
[2023-04-07 18:00] VITALS: BP 105/64; PULSE 63; TEMP 36.1; O2SAT 96
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
[2023-04-08 08:35] VITALS: BP 125/76; PULSE 69; RESP 18; TEMP 36.5; O2SAT 98
[2023-04-08] MEDS: Nicotine 21 MG PATCH.TD24 TRANSDERMA (09:28)
[2023-04-08] MEDS: FLUoxetine HCl 10 MG CAPSULE PO (09:29)
[2023-04-08] MEDS: Gabapentin 300 MG CAPSULE PO (09:30)
[2023-04-08] MEDS: Multivitamin TABLET 1 TAB PO (09:30)
[2023-04-08] MEDS: Thiamine HCL 100 MG TABLET PO (09:30)
[2023-04-08] MEDS: chlordiazePOXIDE HCl 5 MG CAPSULE 15 MG PO ×2 (09:30→19:37)
[2023-04-08] MEDS: Folic Acid 1 MG TABLET PO (09:30)
[2023-04-08] MEDS: methADONE HCl 20 MG/2 ML ORAL.CONC 95 MG PO (09:31)
[2023-04-08] MEDS: Acetaminophen 325 MG TABLET 650 MG PO (12:25)
[2023-04-08] MEDS: Gabapentin 100 MG CAPSULE 200 MG PO ×2 (14:20→19:37)
[2023-04-08 16:55] VITALS: BP 116/69; PULSE 65; RESP 16; TEMP 36.7; O2SAT 96
[2023-04-08] MEDS: Ibuprofen 600 MG TABLET PO (19:37)
[2023-04-08] MEDS: QUEtiapine Fumarate 50 MG TABLET PO (19:37)
[2023-04-08] MEDS: LORazepam 1 MG TABLET PO (19:38)
[2023-04-09 09:00] VITALS: BP 125/64; PULSE 93; RESP 18; TEMP 37.2; O2SAT 95
[2023-04-09] MEDS: methADONE HCl 20 MG/2 ML ORAL.CONC 95 MG PO (09:34)
[2023-04-09] MEDS: Nicotine 21 MG PATCH.TD24 TRANSDERMA (09:34)
[2023-04-09] MEDS: Gabapentin 100 MG CAPSULE 200 MG PO ×2 (09:35→19:41)
[2023-04-09] MEDS: FLUoxetine HCl 10 MG CAPSULE PO (09:35)
[2023-04-09] MEDS: Thiamine HCL 100 MG TABLET PO (09:35)
[2023-04-09] MEDS: Multivitamin TABLET 1 TAB PO (09:35)
[2023-04-09] MEDS: Folic Acid 1 MG TABLET PO (09:35)
[2023-04-09] MEDS: chlordiazePOXIDE HCl 5 MG CAPSULE 15 MG PO ×2 (09:35→19:40)
[2023-04-09] MEDS: Ibuprofen 600 MG TABLET PO ×2 (11:24→19:41)
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
[2023-04-09 18:20] VITALS: BP 116/64; PULSE 63; RESP 16; TEMP 36.3; O2SAT 97
[2023-04-09] MEDS: QUEtiapine Fumarate 50 MG TABLET PO (19:41)
[2023-04-09] MEDS: OLANZapine 5 MG TABLET PO (19:42)
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
[2023-04-10] MEDS: Nicotine 21 MG PATCH.TD24 TRANSDERMA (09:24)
[2023-04-10] MEDS: Gabapentin 100 MG CAPSULE 200 MG PO ×2 (09:24→20:50)
[2023-04-10] MEDS: Multivitamin TABLET 1 TAB PO (09:24)
[2023-04-10] MEDS: methADONE HCl 20 MG/2 ML ORAL.CONC 95 MG PO (09:24)
[2023-04-10] MEDS: FLUoxetine HCl 10 MG CAPSULE PO (09:25)
[2023-04-10] MEDS: Thiamine HCL 100 MG TABLET PO (09:25)
[2023-04-10] MEDS: Folic Acid 1 MG TABLET PO (09:25)
[2023-04-10] MEDS: chlordiazePOXIDE HCl 5 MG CAPSULE 15 MG PO (09:25)
[2023-04-10 09:30] VITALS: BP 137/78; PULSE 70; RESP 16; TEMP 37.6; O2SAT 93
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
[2023-04-10 18:00] VITALS: BP 122/51; PULSE 61; TEMP 37.1; O2SAT 95
[2023-04-11 08:00] VITALS: BP 99/61; PULSE 60; RESP 16; TEMP 36.8; O2SAT 97
[2023-04-11] MEDS: Nicotine 21 MG PATCH.TD24 TRANSDERMA (09:01)
[2023-04-11] MEDS: Multivitamin TABLET 1 TAB PO (09:01)
[2023-04-11] MEDS: Thiamine HCL 100 MG TABLET PO (09:01)
[2023-04-11] MEDS: Gabapentin 100 MG CAPSULE 200 MG PO (09:01)
[2023-04-11] MEDS: Folic Acid 1 MG TABLET PO (09:01)
[2023-04-11] MEDS: FLUoxetine HCl 10 MG CAPSULE PO (09:01)
[2023-04-11] MEDS: methADONE HCl 20 MG/2 ML ORAL.CONC 95 MG PO (09:02)
[2023-04-11] MEDS: Naloxone HCl Nasal TAKE HOME 4 MG SPRAY 8 MG NOSTRILALT (15:28)
== END 2023-04-11 15:53 | disposition home or self-care (01) | DRG 885 ==
PROVIDERS: Admitting Provider Psychiatry & Neurology Psychiatry; Visit Provider Psychiatry & Neurology Psychiatry
DX: F33.2 Major depressive disorder, recurrent severe without psychotic features (principal); R45.851 Suicidal ideations; F11.20 Opioid dependence, uncomplicated; F10.239 Alcohol dependence with withdrawal, unspecified; Z59.02 Unsheltered homelessness; F43.10 Post-traumatic stress disorder, unspecified; F17.210 Nicotine dependence, cigarettes, uncomplicated; Z71.6 Tobacco abuse counseling; F14.10 Cocaine abuse, uncomplicated; B19.20 Unspecified viral hepatitis C without hepatic coma; Z79.899 Other long term (current) drug therapy; Z91.148 Patient's other noncompliance with medication regimen for other reason
CPT/HCPCS: 36415; 80061; 80076; 83036

== ENCOUNTER → 2023-04-02 17:55 | Outpatient (BNV) | payer OTHER, SELFPAY | PROVIDERS: Admitting Provider Psychiatry & Neurology Psychiatry; Visit Provider Psychiatry & Neurology Psychiatry | DX: F33.2 Major depressive disorder, recurrent severe without psychotic features (principal); F10.21 Alcohol dependence, in remission; F43.11 Post-traumatic stress disorder, acute | CPT/HCPCS: 90792; 99231; 99232; 99238 ==

== ENCOUNTER → 2023-04-02 17:55 | Outpatient (BNV) | payer OTHER, SELFPAY | PROVIDERS: Admitting Provider Psychiatry & Neurology Psychiatry; Visit Provider Family Medicine | DX: Z02.2 Encounter for examination for admission to residential institution (principal) | CPT/HCPCS: 99429 ==

== ENCOUNTER 2023-06-02 22:37 | Inpatient (IN) | payer OTHER, SELFPAY ==
[2023-06-03 00:25] VITALS: BP 121/64; PULSE 51; RESP 16; TEMP 36.6; O2SAT 94
[2023-06-03] MEDS: Melatonin 3 MG TABLET 6 MG PO (00:26)
[2023-06-03] MEDS: QUEtiapine Fumarate 200 MG TABLET PO ×2 (00:26→21:36)
[2023-06-03] MEDS: Prazosin HCL 1 MG CAPSULE 4 MG PO ×2 (00:27→21:36)
[2023-06-03 01:53] VITALS: BMI 22.7
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
[2023-06-03 07:30] VITALS: BP 135/83; PULSE 100; RESP 18; TEMP 36.3; O2SAT 100
[2023-06-03] MEDS: FLUoxetine HCl Oral Solution 20 MG/5 ML SOLUTION 10 MG PO (09:00)
[2023-06-03] MEDS: Gabapentin 400 MG CAPSULE PO ×3 (09:01→21:38)
[2023-06-03] MEDS: Multivitamin TABLET 1 TAB PO (09:01)
[2023-06-03] MEDS: Folic Acid 1 MG TABLET PO (09:01)
[2023-06-03] MEDS: Thiamine HCL 100 MG TABLET PO (09:01)
[2023-06-03] MEDS: buPROPion HCl XL 300 MG TAB.ER.24H PO (09:01)
--- NOTE | 2023-06-03 09:25 | P.HPPS_ITS ---
HPI Date of Service: 06/03/23 Chief Complaint: Major depressive disorder, recurrent, severe Sources of Information: patient interviewed, chart reviewed and crisis/core team assessment reviewed HPI Subjective Notes: Starks Warning and Conditional Voluntary Narrative: Patient is a 47 year old male with hx of MDD, PTSD, cocaine abuse and opioid abuse who self presented to ER d/t suicidal ideation secondary to increased depressive symptoms. Per crisis report, pt reported taking a handful of Ativan . He reports losing his sister and daughter in a car accident. Pt expressed plans to OD d/t depression. He reports regular use of IV heroin and cocaine use; he is aware of having Hep C. Patient reports he has not been medication compliant for the past 3 weeks. denies any ETOH use. During admission assessment, pt presents calm and cooperative. Pt stated, I went into a program at [facility] before [place]; when I got out I found out my sister from COVID in the hospital. Three days later, my daughter, Joann in a car accident in [place]. julio is the anniversary of finding my father hanging. I lost it, relapsed and stopped taking my meds. The only reason I want to stick around is my other daughter who is 13 . Patient reports suicidal ideation with plan to hang myself like my father . He reports wanting to be started back on his medications and referred to a substance abuse program. denies HI/VH/AH. Pt reports prior to going into program at [facility], he was residing at [facility]; his plan was to return living with his ex- girlfriend once discharged from [facility] but relapsed. Methadone dose verified by nursing. Past Psychiatric History: History of multiple inpatient psychiatric hospitalizations History of detox, [facility] Past medications: Seroquel 200 mg q.h.s., clonidine, gabapentin 800 mg t.i.d. Wellbutrin Medical Evaluation Reviewed: Yes COUNTS INCLUDE 234 BEDS AT THE [facility] Medical History (Updated 04/19/23 @ 00:03 by Background Daemon) Cocaine use disorder Opioid dependence Alcohol dependence PTSD (post-traumatic stress disorder) MDD (major depressive disorder), recurrent severe, without psychosis Family History: pt reports everyone when asked about family hx of mental illness. Social History: Single, 2 children(reports one child recently in car accident), receives [facility] Homeless. Substance History: IV cocaine and heroin use. Smokes marijuana. On methadone. Trauma History: History of trauma Diagnostics Vital Signs (24Hr): Vital Signs - 24 hr 06/03/23 00:25 06/03/23 07:30 Temperature 98 F 97.4 F Pulse Rate 51 100 Respiratory Rate 16 18 Blood Pressure 121/64 135/83 Pulse Oximetry 94 100 Oxygen Delivery Method Room Air Room Air BMI result Body Mass Index 22.7 Meds/Allergies Meds Home Medications Medication Instructions Recorded Confirmed Type methadone 10 mg/5 mL oral solution 70 mg PO DAILY 04/02/23 06/03/23 History bupropion HCl 150 mg 24 hr tablet, 300 mg PO DAILY 06/02/23 06/02/23 History extended release fluoxetine 20 mg capsule 20 mg PO DAILY 06/02/23 06/02/23 History gabapentin 400 mg capsule 400 mg PO TID 06/02/23 06/02/23 History melatonin 5 mg tablet 6 mg PO 06/02/23 History prazosin 2 mg capsule 4 mg PO BEDTIME 06/02/23 06/02/23 History quetiapine 200 mg tablet 200 mg PO BEDTIME 06/02/23 06/02/23 History topiramate 25 mg tablet 25 mg PO BEDTIME 06/02/23 06/02/23 History Allergies Allergies Allergy/AdvReac Type Severity Reaction Status Date / Time ibuprofen [IBUPROFEN] Allergy Unknown RASH Verified 04/04/22 13:22 henderson peppers Allergy Hives Uncoded 08/23/22 14:47 Mental Status Exam Mental Status Exam Narrative: Pt is alert and oriented; behavior is cooperative and calm; dressed in casual attire; mood is described as depressed ; eye contact appropriate; Speech is normal rate, volume and prosody and not pressured; thought process is organized and goal directed; Thought content is on tx; otherwise pertinent to relevant topics and without any delusional content, paranoid ideations or grandiosity; denies HI/VH/AH. Pt reports suicidal ideation to hang myself . Patients insight and judgment are poor. Assessment & Plan Assessment & Plan (1) MDD (major depressive disorder), recurrent severe, without psychosis: Status: Acute Code(s): F33.2 - Major depressive disorder, recurrent severe without psychotic features (2) PTSD (post-traumatic stress disorder): Status: Acute Code(s): F43.10 - Post-traumatic stress disorder, unspecified (3) Opioid dependence: Status: Acute Code(s): F11.20 - Opioid dependence, uncomplicated (4) Cocaine use disorder: Status: Acute Code(s): F14.10 - Cocaine abuse, uncomplicated Plan Patient is a 47 year old male with hx of MDD, PTSD, cocaine abuse and opioid abuse who self presented to ER d/t suicidal ideation secondary to increased depressive symptoms. Plan: CV 15 minute safety checks Continue home medications Referral to outpatient therapist and prescriber Referral to substance abuse program Labs to be drawn in AM. Patient educated on: diagnosis, medication risk/benefits, substance abuse and therapeutic strategies Informed Consent: understands Reason for continued inpatient stay Substantial Risk for: harm to self and med/psych decompensation Statement Statement: I have reviewed the history and physical and performed a pertinent examination on my patient. No changes have occurred unless specified. If the History and Physical was not performed prior to admission, the Hospitalist's service will be consulted for completing the admission phy sical. Time Spent With Patient Time: Total time managing care of this patient today _60___ minutes.
--- NOTE | 2023-06-03 09:54 | HE.PHANOTE ---
RE:methadone Last dose from [facility] 06/02/22 @1400 70mg; per Almaz Lemus PA-C
[2023-06-03] MEDS: methADONE HCl 20 MG/2 ML ORAL.CONC 70 MG PO (10:37)
--- NOTE | 2023-06-03 11:08 | HO.PM.IMCN ---
History of Present Illness Data of Consult Service Date: 06/03/23 Primary Care Provider: None Physician HPI 47 yo M with polysubstance abuse and Hep C who is admitted to Medical consult requested for routine medical H&P per protocol. Last hospitalization at in Mar 2024 Pt seen and examined . He is feeling increasingly depressed and suicidal from having lost 22 year old daughter and a sister days before [place] and as result has started using drugs again, last used just before coming. He denies any acute medical issues at this time Review of Systems Review of Systems: Gen: no fever Resp: no sob, no cough CV: no chest, no GARRISON, no leg edema GI: No n/v, no abd pain Neuro: No confusion Psych: depressed, si Yes all other systems are reviewed and are negative [facility] Medical History (Updated 04/19/23 @ 00:03 by Judi Cabrera) Cocaine use disorder Opioid dependence Alcohol dependence PTSD (post-traumatic stress disorder) MDD (major depressive disorder), recurrent severe, without psychosis Social History Household Members: None Household Members Other:: homeless Housing: Apartment Do you presently have visiting nurse or other home services: No Alcohol intake: never Patient Tobacco Use Status: Current everyday Tobacco user Tobacco use type: Cigarette Cigarette Packs Per Day: 1.5 Cigarettes Per Day: 30.0 Smoked in Last 30 Days: Yes e-Cigarette/Vaping Use: Never Used Patient Interested in Nicotine Replacement: Yes Patient Given Instructions on How to Stop Smoking: Yes Date Education Initiated: 06/02/23 Second Hand Smoke Exposure: Yes Use of substances other than those prescribed or required for medical reasons: Yes Substance Use Type: Crack/Cocaine, Heroin and Opiates Substance Use Frequency: Daily Last Used Substance: Just Prior to Admission Last Used Substance Other:: heroin/cocaine Currently Displaying Signs/Symptoms of Drug Intoxication Withdrawal: Yes Any prior treatment program specific to substance use: Yes Have you been hit, kicked, punched, or otherwise hurt by someone within the past year? If so, by whom?: No Do you feel safe in your current relationship?: No Current Relationship Is there a partner from a previous relationship who is making you feel unsafe now?: No Are you made to feel afraid or neglected: No Spiritual Healthcare Practices: none reported Mu-Ism Healthcare Practices: none reported Cultural Healthcare Practices: none reported Advance Directives: No Advance Directives Information Provided: No Do you have thoughts of harming others: None Do you have a plan to hurt others: No Plan Recently lost weight without trying: No How much weight loss: Not applicable Eating poorly because of decreased appetite: Yes Nutrition screen score: 1 Nutrition Risks: No Nutritional Risk Poor oral hygiene: No service: No Sexual orientation: Straight/Heterosexual Meds Allergies Allergy/AdvReac Type Severity Reaction Status Date / Time ibuprofen [IBUPROFEN] Allergy Unknown RASH Verified 04/04/22 13:22 henderson peppers Allergy Hives Uncoded 08/23/22 14:47 Active Medications: Current Medications Acetaminophen (Acetaminophen 325 Mg Tablet) 650 mg PO Q6H PRN PRN Reason: Headache/Pain Mild Scale (1-3) Al Hydroxide/Mg Hydroxide (Magnesium Hydrox/Alum Hydrox 30 Ml Oral.Susp) 30 ml PO Q6H PRN PRN Reason: Heartburn/Nausea Albuterol Sulfate (Albuterol Sulfate 90 Mcg 8 Gm Inhaler) 1 puff INHALE RQ6H PRN PRN Reason: bronchospasm Baclofen (Baclofen 10 Mg Tablet) 10 mg PO TID PRN PRN Reason: muscle spams Bupropion HCl (Bupropion Hcl Xl 300 Mg Tab.Er.24h) 300 mg PO DAILY [facility] Last Admin: 06/03/23 09:01 Dose: 300 mg Clonidine HCl (Clonidine Hcl 0.1 Mg Tablet) 0.1 mg PO Q4H PRN; Protocol PRN Reason: palpitations/anxiety Fluoxetine HCl (Fluoxetine Hcl Oral Solution 20 Mg/5 Ml Solution) 10 mg PO DAILY [facility] Last Admin: 06/03/23 09:00 Dose: 10 mg Folic Acid (Folic Acid 1 Mg Tablet) 1 mg PO DAILY [facility] Last Admin: 06/03/23 09:01 Dose: 1 mg Gabapentin (Gabapentin 400 Mg Capsule) 400 mg PO TID [facility] Last Admin: 06/03/23 09:01 Dose: 400 mg Hydroxyzine HCl (Hydroxyzine Hcl 25 Mg Tablet) 25 mg PO Q6H PRN PRN Reason: Anxiety Magnesium Hydroxide (Milk Of Magnesia 30 Ml Oral.Susp) 30 ml PO DAILY PRN PRN Reason: Constipation Methadone HCl (Methadone Hcl 20 Mg/2 Ml Oral.Conc) 70 mg PO DAILY [facility] Last Admin: 06/03/23 10:37 Dose: 70 mg Multivitamins/Vitamin C (Multivitamin Tablet) 1 tab PO DAILY [facility] Last Admin: 06/03/23 09:01 Dose: 1 tab Nicotine Polacrilex (Nicotine Polacrilex Lozenge 2 Mg Lozenge) 2 mg BUCCAL Q2H PRN PRN Reason: Nicotine Cravings Ondansetron HCl (Ondansetron Odt 8 Mg Tab.Rapdis) 8 mg TRANSLINGU Q8H PRN PRN Reason: Nausea and Vomiting Prazosin HCl (Prazosin Hcl 1 Mg Capsule) 4 mg PO BEDTIME [facility]; Protocol Quetiapine Fumarate (Quetiapine Fumarate 50 Mg Tablet) 50 mg PO BID PRN PRN Reason: agitation Quetiapine Fumarate (Quetiapine Fumarate 200 Mg Tablet) 200 mg PO BEDTIME [facility] Thiamine HCl (Thiamine Hcl 100 Mg Tablet) 100 mg PO DAILY [facility] Last Admin: 06/03/23 09:01 Dose: 100 mg Topiramate (Topiramate 25 Mg Tablet) 25 mg PO BEDTIME [facility] Trazodone HCl (Trazodone Hcl 50 Mg Tablet) 50 mg PO BEDTIME MRX1 PRN PRN Reason: Insomnia Home Medications Medication Instructions Recorded Confirmed Last Taken Type methadone 10 mg/5 mL oral solution 70 mg PO DAILY 04/02/23 06/03/23 04/02/23 19:21 History bupropion HCl 150 mg 24 hr tablet, 300 mg PO DAILY 06/02/23 06/02/23 Unknown History extended release fluoxetine 20 mg capsule 20 mg PO DAILY 06/02/23 06/02/23 Unknown History gabapentin 400 mg capsule 400 mg PO TID 06/02/23 06/02/23 Unknown History melatonin 5 mg tablet 6 mg PO 06/02/23 Unknown History prazosin 2 mg capsule 4 mg PO BEDTIME 06/02/23 06/02/23 Unknown History quetiapine 200 mg tablet 200 mg PO BEDTIME 06/02/23 06/02/23 Unknown History topiramate 25 mg tablet 25 mg PO BEDTIME 06/02/23 06/02/23 Unknown History Physical Exam Vital Signs and Narrative: Vital Signs: Last Vital Signs Temp 97.4 F 06/03/23 07:30 Pulse 100 06/03/23 07:30 Resp 18 06/03/23 07:30 BP 135/83 06/03/23 07:30 Pulse Ox 100 06/03/23 07:30 O2 Del Method Room Air 06/03/23 07:30 BMI result Body Mass Index 22.7 Const: Other: General - no acute distress, appears comfortable Cardiovascular - regular rate and rhythm, S1-S2 Lungs - normal respiratory effort, clear to auscultation bilaterally, no wheezing Abdomen - soft, nontender, no rebound or guarding Extremities - no edema bilaterally Neuro - awake and alert, no focal deficits; cn 2-12 intact Psych: depressed, +SI Assessment and Plan (1) Hepatitis C: Status: Acute (2) Opioid dependence: Status: Acute Plan 47 yo M admitted to [facility] for depression/SI Pt with no acute medical issues, continue psych managment. Should purusuit treatment for hep c on outpatient basis. Thanks for the consult and signing off, will follow prn
[2023-06-03] MEDS: QUEtiapine Fumarate 50 MG TABLET PO (13:32)
--- NOTE | 2023-06-03 14:30 | PC.NURSE ---
Patient placed on 5 minute checks, despondent, depressed, sobbing.
[2023-06-03] MEDS: cloNIDine HCL 0.1 MG TABLET PO (18:14)
[2023-06-03 18:24] VITALS: BP 121/67
[2023-06-03] MEDS: Topiramate 25 MG TABLET PO (21:37)
[2023-06-04 07:45] VITALS: BP 109/56; PULSE 58; RESP 12; TEMP 36.9; O2SAT 98
[2023-06-04] MEDS: buPROPion HCl XL 150 MG TAB.ER.24H PO (08:23)
[2023-06-04] MEDS: Nicotine 21 MG PATCH.TD24 TRANSDERMA (08:23)
[2023-06-04] MEDS: Gabapentin 400 MG CAPSULE PO ×3 (08:23→21:48)
[2023-06-04] MEDS: methADONE HCl 20 MG/2 ML ORAL.CONC 70 MG PO (08:23)
[2023-06-04] MEDS: FLUoxetine HCl Oral Solution 20 MG/5 ML SOLUTION 10 MG PO (08:23)
--- NOTE | 2023-06-04 09:11 | P.PNPSI_ITS ---
Subjective Subjective Date of Service: 06/04/23 Reason For Visit: Major depressive disorder, recurrent, severe Subjective Notes: Conditional Voluntary Interim History: Reviewed with Dr. Hawkins. Isolative. tearful. pt reports feeling depressed ; pt stated, I'm thinking about everything. I just don't know how to handle it and how I'm supposed to bury my daughter . Pt reports he continues to have suicidal ideation. He is requesting a substance abuse program to maintain sobriety. Medication Compliance: Yes Side effects from medications: No Attending Groups: No Review of Systems Constitutional: Reports as per HPI Eyes: Reports as per HPI Reports as per HPI Cardiovascular: Reports as per HPI Respiratory: Reports as per HPI Gastrointestinal: Reports as per HPI Genitourinary: Reports as per HPI Musculoskeletal: Reports as per HPI Skin/Breast: Reports as per HPI Reports as per HPI Psychiatric: Reports as per HPI Endocrine: Reports as per HPI Hematologic/Lymphatic: Reports as per HPI Allergic/Immunologic: Reports as per HPI Mental Status Exam Mental Status Exam Narrative: Pt is alert and oriented; behavior is cooperative, calm, tearful; dressed in casual attire; mood is described as depressed ; eye contact appropriate; Speech is normal rate, volume and prosody and not pressured; thought process is organized and goal directed; Thought content is on tx; otherwise pertinent to relevant topics and without any delusional content, paranoid ideations or grandiosity; denies HI/VH/AH. Pt reports suicidal ideation. Diagnostics Vital Signs (24Hr): Vital Signs - 24 hr 06/03/23 18:24 06/04/23 07:45 Temperature 98.4 F Pulse Rate 58 Respiratory Rate 12 Blood Pressure 121/67 109/56 L Pulse Oximetry 98 Oxygen Delivery Method Room Air BMI result Body Mass Index 22.7 Medications Medications Current Medications Acetaminophen (Acetaminophen 325 Mg Tablet) 650 mg PO Q6H PRN PRN Reason: Headache/Pain Mild Scale (1-3) Al Hydroxide/Mg Hydroxide (Magnesium Hydrox/Alum Hydrox 30 Ml Oral.Susp) 30 ml PO Q6H PRN PRN Reason: Heartburn/Nausea Albuterol Sulfate (Albuterol Sulfate 90 Mcg 8 Gm Inhaler) 1 puff INHALE RQ6H PRN PRN Reason: bronchospasm Baclofen (Baclofen 10 Mg Tablet) 10 mg PO TID PRN PRN Reason: muscle spams Bupropion HCl (Bupropion Hcl Xl 150 Mg Tab.Er.24h) 150 mg PO DAILY [facility] Last Admin: 06/04/23 08:23 Dose: 150 mg Clonidine HCl (Clonidine Hcl 0.1 Mg Tablet) 0.1 mg PO Q4H PRN; Protocol PRN Reason: palpitations/anxiety Last Admin: 06/03/23 18:14 Dose: 0.1 mg Fluoxetine HCl (Fluoxetine Hcl Oral Solution 20 Mg/5 Ml Solution) 10 mg PO DAILY [facility] Last Admin: 06/04/23 08:23 Dose: 10 mg Gabapentin (Gabapentin 400 Mg Capsule) 400 mg PO TID [facility] Last Admin: 06/04/23 08:23 Dose: 400 mg Hydroxyzine HCl (Hydroxyzine Hcl 25 Mg Tablet) 25 mg PO Q6H PRN PRN Reason: Anxiety Magnesium Hydroxide (Milk Of Magnesia 30 Ml Oral.Susp) 30 ml PO DAILY PRN PRN Reason: Constipation Methadone HCl (Methadone Hcl 20 Mg/2 Ml Oral.Conc) 70 mg PO DAILY [facility] Last Admin: 06/04/23 08:23 Dose: 70 mg Nicotine (Nicotine 21 Mg Patch.Td24) 21 mg TRANSDERMA DAILY [facility] Last Admin: 06/04/23 08:23 Dose: 21 mg Nicotine Polacrilex (Nicotine Polacrilex Lozenge 2 Mg Lozenge) 2 mg BUCCAL Q2H PRN PRN Reason: Nicotine Cravings Ondansetron HCl (Ondansetron Odt 8 Mg Tab.Rapdis) 8 mg TRANSLINGU Q8H PRN PRN Reason: Nausea and Vomiting Prazosin HCl (Prazosin Hcl 1 Mg Capsule) 4 mg PO BEDTIME [facility]; Protocol Last Admin: 06/03/23 21:36 Dose: 4 mg Quetiapine Fumarate (Quetiapine Fumarate 50 Mg Tablet) 50 mg PO BID PRN PRN Reason: agitation Last Admin: 06/03/23 13:32 Dose: 50 mg Quetiapine Fumarate (Quetiapine Fumarate 200 Mg Tablet) 200 mg PO BEDTIME [facility] Last Admin: 06/03/23 21:36 Dose: 200 mg Topiramate (Topiramate 25 Mg Tablet) 25 mg PO BEDTIME [facility] Last Admin: 06/03/23 21:37 Dose: 25 mg Trazodone HCl (Trazodone Hcl 50 Mg Tablet) 50 mg PO BEDTIME MRX1 PRN PRN Reason: Insomnia Allergies Allergies Allergy/AdvReac Type Severity Reaction Status Date / Time ibuprofen [IBUPROFEN] Allergy Unknown RASH Verified 04/04/22 13:22 henderson peppers Allergy Hives Uncoded 08/23/22 14:47 Assessment & Plan Assessment & Plan (1) MDD (major depressive disorder), recurrent severe, without psychosis: Status: Acute Code(s): F33.2 - Major depressive disorder, recurrent severe without psychotic features (2) PTSD (post-traumatic stress disorder): Status: Acute Code(s): F43.10 - Post-traumatic stress disorder, unspecified (3) Opioid dependence: Status: Acute Code(s): F11.20 - Opioid dependence, uncomplicated (4) Cocaine use disorder: Status: Acute Code(s): F14.10 - Cocaine abuse, uncomplicated Plan Patient is a 47 year old male with hx of MDD, PTSD, cocaine abuse and opioid abuse who self presented to ER d/t suicidal ideation secondary to increased depressive symptoms. Plan: CV 15 minute safety checks Continue home medications Referral to outpatient therapist and prescriber Referral to substance abuse program Labs to be drawn in AM. 06/04: Isolative. tearful. pt reports feeling depressed ; pt stated, I'm thinking about everything. I just don't know how to handle it and how I'm supposed to bury my daughter . Pt reports he continues to have suicidal ideation. He is requesting a substance abuse program to maintain sobriety. Continue current tx plan. Patient educated on: diagnosis, medication risk/benefits, substance abuse and therapeutic strategies Informed Consent: understands Reason for continued inpatient stay Substantial Risk for: harm to self and med/psych decompensation Time Spent With Patient Time: Total time managing care of this patient today _30___ minutes.
[2023-06-04] MEDS: cloNIDine HCL 0.1 MG TABLET PO (09:41)
[2023-06-04] MEDS: Nicotine Polacrilex Lozenge 2 MG LOZENGE BUCCAL ×3 (09:41→21:51)
[2023-06-04] MEDS: QUEtiapine Fumarate 50 MG TABLET PO (14:21)
[2023-06-04 14:46] LABS: MANUAL DIFF FLAG NO
[2023-06-04 15:00] LABS: Ammonia 24 umol/L (13-55); Basophils Percent Auto 0.6 % (0-2); Eosinophils Absolute Auto 0.1 X10*3/uL (0.0-0.4); Eosinophils Percent Auto 2.2 % (0-4); Hematocrit 36.1 % (42.0-52.0); Hemoglobin 11.9 g/dl (14.0-18.0); Imm Gran Abs Auto 0.02 X10*3/uL (0.00-0.03); Imm Gran Pct Auto 0.3 % (0.0-0.4); Lymphocytes Absolute Auto 3.5 X10*3/uL (1.2-4.9); Lymphocytes Percent Auto 55.3 % (20-40); Mean Corpuscular Hemoglobin 28.9 pg (27.0-33.0); Mean Corpuscular Volume 87.6 fL (80.0-98.0); Mean Platelet Volume 10.9 fL (9.4-12.4); Monocytes Absolute Auto 0.4 X10*3/uL (0.1-1.2); Monocytes Percent Auto 6.6 % (2-11); Neutrophils Absolute Auto 2.2 x10*3/uL (2.0-8.3); Platelet Count 243 X10*3/uL (160-400); Red Blood Count 4.12 X10*6/uL (4.60-5.80); Red Cell Distribution Width 13.9 % (11.0-16.0); White Blood Count 6.4 X10*3/uL (4.8-10.8)
[2023-06-04 15:17] LABS: Alanine Aminotransferase 43 U/L (0-40); Albumin Level 4.1 g/dL (3.5-5.0); Alkaline Phosphatase 85 U/L (39-117); Anion Gap 12 (12-20); Aspartate Amino Transferase 25 U/L (5-37); Bilirubin Direct < 0.2 mg/dL (0.0-0.5); Bilirubin Total 0.1 mg/dL (0.0-1.0); Blood Urea Nitrogen 15 mg/dL (9-16); Calcium 9.2 mg/dL (8.4-10.2); Carbon Dioxide 29 mmol/L (22-29); Chloride 105 mmol/L (96-108); Creatinine Clr Calc Pharmacy 114.5; Estimated Glomerular Filt Rate > 60; Glucose Random 91 mg/dL (60-115); Potassium 3.7 mmol/L (3.3-5.1); Sodium 142 mmol/L (135-145); Total Protein 7.2 g/dL (6.5-8.0)
[2023-06-04 15:30] LABS: TSH reflex Free T4 1.45 uIU/mL (0.32-4.0)
[2023-06-04 16:00] VITALS: PULSE 60
[2023-06-04 20:29] VITALS: BP 118/58; PULSE 53; RESP 16; TEMP 36.7; O2SAT 97
[2023-06-04 21:45] VITALS: BP 117/65; PULSE 60
[2023-06-04] MEDS: Prazosin HCL 1 MG CAPSULE 4 MG PO (21:48)
[2023-06-04] MEDS: QUEtiapine Fumarate 200 MG TABLET PO (21:48)
[2023-06-04] MEDS: Topiramate 25 MG TABLET PO (21:48)
--- NOTE | 2023-06-05 05:31 | PC.NURSE ---
Pt appeared to be asleep and in no apparent distress around midnight, COWS assessment not completed.
[2023-06-05 06:00] VITALS: BP 144/65; PULSE 65; RESP 20; TEMP 36.5; O2SAT 98
[2023-06-05 07:00] VITALS: BMI 53.5
[2023-06-05 08:00] VITALS: PULSE 53
[2023-06-05] MEDS: buPROPion HCl XL 150 MG TAB.ER.24H PO (08:27)
[2023-06-05] MEDS: methADONE HCl 20 MG/2 ML ORAL.CONC 70 MG PO (08:27)
[2023-06-05] MEDS: FLUoxetine HCl Oral Solution 20 MG/5 ML SOLUTION 10 MG PO (08:27)
[2023-06-05] MEDS: Gabapentin 400 MG CAPSULE PO ×3 (08:27→20:10)
[2023-06-05] MEDS: Nicotine 21 MG PATCH.TD24 TRANSDERMA (08:27)
--- NOTE | 2023-06-05 09:20 | P.PNPSI_ITS ---
Subjective Subjective Date of Service: 06/05/23 Reason For Visit: Major depressive disorder, recurrent, severe Subjective Notes: Conditional Voluntary Interim History: Reviewed with . Active on unit, social with peers. irritable. Pt reports he is grieving the loss of my daughter ; pt stated, I know I need to go to a substance abuse program because if I don't I will relapse. I don't want the [facility] because I know where to get high there. I'll go anywhere. I don't want to do this to my other daughter . Pt reports he plans on contacting [facility] in the [facility] and plans on talking to his disaster recovery consultant to obtain a ride to a substance abuse program. denies SI/HI/VH/AH. Medication Compliance: Yes Side effects from medications: No Attending Groups: No Review of Systems Constitutional: Reports as per HPI Eyes: Reports as per HPI Reports as per HPI Cardiovascular: Reports as per HPI Respiratory: Reports as per HPI Gastrointestinal: Reports as per HPI Genitourinary: Reports as per HPI Musculoskeletal: Reports as per HPI Skin/Breast: Reports as per HPI Reports as per HPI Psychiatric: Reports as per HPI Endocrine: Reports as per HPI Hematologic/Lymphatic: Reports as per HPI Allergic/Immunologic: Reports as per HPI Mental Status Exam Mental Status Exam Narrative: Pt is alert and oriented; behavior is irritable, depressed; dressed in casual attire; mood is described as grieving ; eye contact appropriate; Speech is normal rate, volume and prosody and not pressured; thought process is organized and goal directed; Thought content is on tx; otherwise pertinent to relevant topics and without any delusional content, paranoid ideations or grandiosity; denies SI/HI/VH/AH. Diagnostics Vital Signs (24Hr): Vital Signs - 24 hr 06/04/23 20:29 06/04/23 21:45 06/05/23 06:00 Temperature 98.1 F 97.7 F Pulse Rate 53 60 65 Respiratory Rate 16 20 Blood Pressure 118/58 L 117/65 144/65 H Pulse Oximetry 97 98 Oxygen Delivery Method Room Air Room Air BMI result Body Mass Index 22.7 Labs 06/04/23 14:40 06/04/23 14:40 Labs: Laboratory Results - last 48 hr 06/04/23 14:40 WBC 6.4 RBC 4.12 L Hgb 11.9 L Hct 36.1 L MCV 87.6 MCH 28.9 MCHC 33.0 RDW 13.9 Plt Count 243 MPV 10.9 Immature Gran % (Auto) 0.3 Neut % (Auto) 35.0 L Lymph % (Auto) 55.3 H Bollinger % (Auto) 6.6 Eos % (Auto) 2.2 Baso % (Auto) 0.6 Lymph # (Auto) 3.5 Bollinger # (Auto) 0.4 Eos # (Auto) 0.1 Baso # (Auto) 0.0 Abs Immat Gran (auto) 0.02 Absolute Neuts (auto) 2.2 Absolute Nucleated RBC 0.000 Nucleated RBC % (auto) 0.0 Sodium 142 Potassium 3.7 Chloride 105 Carbon Dioxide 29 Anion Gap 12 BUN 15 Creatinine 0.87 Estim Creat Clear Calc 114.5 Estimated GFR > 60 Random Glucose 91 Calcium 9.2 Total Bilirubin 0.1 Direct Bilirubin < 0.2 AST 25 ALT 43 H Alkaline Phosphatase 85 Ammonia 24 Total Protein 7.2 Albumin 4.1 TSH 1.45 Medications Medications Current Medications Acetaminophen (Acetaminophen 325 Mg Tablet) 650 mg PO Q6H PRN PRN Reason: Headache/Pain Mild Scale (1-3) Al Hydroxide/Mg Hydroxide (Magnesium Hydrox/Alum Hydrox 30 Ml Oral.Susp) 30 ml PO Q6H PRN PRN Reason: Heartburn/Nausea Albuterol Sulfate (Albuterol Sulfate 90 Mcg 8 Gm Inhaler) 1 puff INHALE RQ6H PRN PRN Reason: bronchospasm Baclofen (Baclofen 10 Mg Tablet) 10 mg PO TID PRN PRN Reason: muscle spams Bupropion HCl (Bupropion Hcl Xl 150 Mg Tab.Er.24h) 150 mg PO DAILY [facility] Last Admin: 06/05/23 08:27 Dose: 150 mg Clonidine HCl (Clonidine Hcl 0.1 Mg Tablet) 0.1 mg PO Q4H PRN; Protocol PRN Reason: palpitations/anxiety Last Admin: 06/04/23 09:41 Dose: 0.1 mg Fluoxetine HCl (Fluoxetine Hcl Oral Solution 20 Mg/5 Ml Solution) 10 mg PO DAILY [facility] Last Admin: 06/05/23 08:27 Dose: 10 mg Gabapentin (Gabapentin 400 Mg Capsule) 400 mg PO TID [facility] Last Admin: 06/05/23 08:27 Dose: 400 mg Hydroxyzine HCl (Hydroxyzine Hcl 25 Mg Tablet) 25 mg PO Q6H PRN PRN Reason: Anxiety Magnesium Hydroxide (Milk Of Magnesia 30 Ml Oral.Susp) 30 ml PO DAILY PRN PRN Reason: Constipation Melatonin (Melatonin 3 Mg Tablet) 6 mg PO BEDTIME PRN PRN Reason: Sleep Methadone HCl (Methadone Hcl 20 Mg/2 Ml Oral.Conc) 70 mg PO DAILY [facility] Last Admin: 06/05/23 08:27 Dose: 70 mg Nicotine (Nicotine 21 Mg Patch.Td24) 21 mg TRANSDERMA DAILY [facility] Last Admin: 06/05/23 08:27 Dose: 21 mg Nicotine Polacrilex (Nicotine Polacrilex Lozenge 2 Mg Lozenge) 2 mg BUCCAL Q2H PRN PRN Reason: Nicotine Cravings Last Admin: 06/04/23 21:51 Dose: 2 mg Ondansetron HCl (Ondansetron Odt 8 Mg Tab.Rapdis) 8 mg TRANSLINGU Q8H PRN PRN Reason: Nausea and Vomiting Prazosin HCl (Prazosin Hcl 1 Mg Capsule) 4 mg PO BEDTIME [facility]; Protocol Last Admin: 06/04/23 21:48 Dose: 4 mg Quetiapine Fumarate (Quetiapine Fumarate 50 Mg Tablet) 50 mg PO BID PRN PRN Reason: agitation Last Admin: 06/04/23 14:21 Dose: 50 mg Quetiapine Fumarate (Quetiapine Fumarate 200 Mg Tablet) 200 mg PO BEDTIME [facility] Last Admin: 06/04/23 21:48 Dose: 200 mg Topiramate (Topiramate 25 Mg Tablet) 25 mg PO BEDTIME [facility] Last Admin: 06/04/23 21:48 Dose: 25 mg Trazodone HCl (Trazodone Hcl 50 Mg Tablet) 50 mg PO BEDTIME MRX1 PRN PRN Reason: Insomnia Allergies Allergies Allergy/AdvReac Type Severity Reaction Status Date / Time ibuprofen [IBUPROFEN] Allergy Unknown RASH Verified 04/04/22 13:22 henderson peppers Allergy Hives Uncoded 08/23/22 14:47 Assessment & Plan Assessment & Plan (1) MDD (major depressive disorder), recurrent severe, without psychosis: Status: Acute Code(s): F33.2 - Major depressive disorder, recurrent severe without psychotic features (2) PTSD (post-traumatic stress disorder): Status: Acute Code(s): F43.10 - Post-traumatic stress disorder, unspecified (3) Opioid dependence: Status: Acute Code(s): F11.20 - Opioid dependence, uncomplicated (4) Cocaine use disorder: Status: Acute Code(s): F14.10 - Cocaine abuse, uncomplicated Plan Patient is a 47 year old male with hx of MDD, PTSD, cocaine abuse and opioid abuse who self presented to ER d/t suicidal ideation secondary to increased depressive symptoms. Plan: CV 15 minute safety checks Continue home medications Referral to outpatient therapist and prescriber Referral to substance abuse program Labs to be drawn in AM. 06/04: Isolative. tearful. pt reports feeling depressed ; pt stated, I'm thinking about everything. I just don't know how to handle it and how I'm supposed to bury my daughter . Pt reports he continues to have suicidal ideation. He is requesting a substance abuse program to maintain sobriety. Continue current tx plan. 06/05: Active on unit, social with peers. irritable. Pt reports he is grieving the loss of my daughter ; pt stated, I know I need to go to a substance abuse program because if I don't I will relapse. I don't want the [facility] because I know where to get high there. I'll go anywhere. I don't want to do this to my other daughter . Pt reports he plans on contacting [facility] in the [facility] and plans on talking to his disaster recovery consultant to obtain a ride to a substance abuse program. denies SI/HI/VH/AH. Increase Wellbutrin XL to 300mg PO daily DC topamax per pt request Increase Seroquel to 250mg PO bedtime Patient educated on: diagnosis, medication risk/benefits, substance abuse and therapeutic strategies Informed Consent: understands Reason for continued inpatient stay Substantial Risk for: med/psych decompensation Time Spent With Patient Time: Total time managing care of this patient today _30___ minutes.
[2023-06-05] MEDS: Nicotine Polacrilex Lozenge 2 MG LOZENGE BUCCAL ×3 (09:46→20:13)
[2023-06-05 16:00] VITALS: PULSE 68
[2023-06-05 19:56] VITALS: BP 132/71; PULSE 60; RESP 16; TEMP 36.6; O2SAT 99
[2023-06-05] MEDS: QUEtiapine Fumarate 50 MG TABLET 250 MG PO (20:08)
[2023-06-05] MEDS: Prazosin HCL 1 MG CAPSULE 4 MG PO (20:11)
[2023-06-05] MEDS: Melatonin 3 MG TABLET 6 MG PO (20:12)
--- NOTE | 2023-06-06 04:09 | PC.NURSE ---
Pt appears to have been sleeping throughout the night, in no apparent distress, midnight COWS assessment not completed.
[2023-06-06 08:00] VITALS: PULSE 63
[2023-06-06 08:30] VITALS: BP 127/73; PULSE 63; RESP 16; TEMP 36.8; O2SAT 97
[2023-06-06] MEDS: methADONE HCl 20 MG/2 ML ORAL.CONC 70 MG PO (09:14)
[2023-06-06] MEDS: Gabapentin 400 MG CAPSULE PO ×3 (09:15→20:10)
[2023-06-06] MEDS: buPROPion HCl XL 300 MG TAB.ER.24H PO (09:15)
[2023-06-06] MEDS: FLUoxetine HCl Oral Solution 20 MG/5 ML SOLUTION 10 MG PO (09:15)
[2023-06-06] MEDS: Nicotine 21 MG PATCH.TD24 TRANSDERMA (09:16)
--- NOTE | 2023-06-06 09:17 | P.PNPSI_ITS ---
Subjective Subjective Date of Service: 06/06/23 Reason For Visit: Major depressive disorder, recurrent, severe Subjective Notes: Conditional Voluntary Interim History: Reviewed with . irritable. Pt stated, I'm frustrated because I can't find a substance abuse program and I'm pissed that my daughter is taken away from me . Pt reports his motor coach bus driver is trying to find somewhere for me to go . He reports sleeping well, no medications side effects. denies SI/HI/VH/AH. Medication Compliance: Yes Side effects from medications: No Review of Systems Constitutional: Reports as per HPI Eyes: Reports as per HPI Reports as per HPI Cardiovascular: Reports as per HPI Respiratory: Reports as per HPI Gastrointestinal: Reports as per HPI Genitourinary: Reports as per HPI Musculoskeletal: Reports as per HPI Skin/Breast: Reports as per HPI Reports as per HPI Psychiatric: Reports as per HPI Endocrine: Reports as per HPI Hematologic/Lymphatic: Reports as per HPI Allergic/Immunologic: Reports as per HPI Mental Status Exam Mental Status Exam Narrative: Pt is alert and oriented; behavior is irritable, depressed; dressed in casual attire; mood is described as grieving ; eye contact appropriate; Speech is normal rate, volume and prosody and not pressured; thought process is organized and goal directed; Thought content is on tx; otherwise pertinent to relevant topics and without any delusional content, paranoid ideations or grandiosity; denies SI/HI/VH/AH. Diagnostics Vital Signs (24Hr): Vital Signs - 24 hr 06/05/23 19:56 06/06/23 08:30 Temperature 97.8 F 98.3 F Pulse Rate 60 63 Respiratory Rate 16 16 Blood Pressure 132/71 127/73 Pulse Oximetry 99 97 Oxygen Delivery Method Room Air Room Air BMI result Body Mass Index 53.5 Labs 06/04/23 14:40 06/04/23 14:40 Labs: Laboratory Results - last 48 hr 06/04/23 14:40 WBC 6.4 RBC 4.12 L Hgb 11.9 L Hct 36.1 L MCV 87.6 MCH 28.9 MCHC 33.0 RDW 13.9 Plt Count 243 MPV 10.9 Immature Gran % (Auto) 0.3 Neut % (Auto) 35.0 L Lymph % (Auto) 55.3 H Butler % (Auto) 6.6 Eos % (Auto) 2.2 Baso % (Auto) 0.6 Lymph # (Auto) 3.5 Butler # (Auto) 0.4 Eos # (Auto) 0.1 Baso # (Auto) 0.0 Abs Immat Gran (auto) 0.02 Absolute Neuts (auto) 2.2 Absolute Nucleated RBC 0.000 Nucleated RBC % (auto) 0.0 Sodium 142 Potassium 3.7 Chloride 105 Carbon Dioxide 29 Anion Gap 12 BUN 15 Creatinine 0.87 Estim Creat Clear Calc 114.5 Estimated GFR > 60 Random Glucose 91 Calcium 9.2 Total Bilirubin 0.1 Direct Bilirubin < 0.2 AST 25 ALT 43 H Alkaline Phosphatase 85 Ammonia 24 Total Protein 7.2 Albumin 4.1 TSH 1.45 Medications Medications Current Medications Acetaminophen (Acetaminophen 325 Mg Tablet) 650 mg PO Q6H PRN PRN Reason: Headache/Pain Mild Scale (1-3) Al Hydroxide/Mg Hydroxide (Magnesium Hydrox/Alum Hydrox 30 Ml Oral.Susp) 30 ml PO Q6H PRN PRN Reason: Heartburn/Nausea Albuterol Sulfate (Albuterol Sulfate 90 Mcg 8 Gm Inhaler) 1 puff INHALE RQ6H PRN PRN Reason: bronchospasm Bupropion HCl (Bupropion Hcl Xl 300 Mg Tab.Er.24h) 300 mg PO DAILY [facility] Last Admin: 06/06/23 09:15 Dose: 300 mg Clonidine HCl (Clonidine Hcl 0.1 Mg Tablet) 0.1 mg PO Q4H PRN; Protocol PRN Reason: palpitations/anxiety Last Admin: 06/04/23 09:41 Dose: 0.1 mg Fluoxetine HCl (Fluoxetine Hcl Oral Solution 20 Mg/5 Ml Solution) 10 mg PO DAILY [facility] Last Admin: 06/06/23 09:15 Dose: 10 mg Gabapentin (Gabapentin 400 Mg Capsule) 400 mg PO TID [facility] Last Admin: 06/06/23 09:15 Dose: 400 mg Hydroxyzine HCl (Hydroxyzine Hcl 25 Mg Tablet) 25 mg PO Q6H PRN PRN Reason: Anxiety Magnesium Hydroxide (Milk Of Magnesia 30 Ml Oral.Susp) 30 ml PO DAILY PRN PRN Reason: Constipation Melatonin (Melatonin 3 Mg Tablet) 6 mg PO BEDTIME [facility] Last Admin: 06/05/23 20:12 Dose: 6 mg Methadone HCl (Methadone Hcl 20 Mg/2 Ml Oral.Conc) 70 mg PO DAILY [facility] Last Admin: 06/06/23 09:14 Dose: 70 mg Nicotine (Nicotine 21 Mg Patch.Td24) 21 mg TRANSDERMA DAILY [facility] Last Admin: 06/06/23 09:16 Dose: 21 mg Nicotine Polacrilex (Nicotine Polacrilex Lozenge 2 Mg Lozenge) 2 mg BUCCAL Q2H PRN PRN Reason: Nicotine Cravings Last Admin: 06/05/23 20:13 Dose: 2 mg Prazosin HCl (Prazosin Hcl 1 Mg Capsule) 4 mg PO BEDTIME [facility]; Protocol Last Admin: 06/05/23 20:11 Dose: 4 mg Quetiapine Fumarate (Quetiapine Fumarate 50 Mg Tablet) 50 mg PO BID PRN PRN Reason: agitation Last Admin: 06/04/23 14:21 Dose: 50 mg Quetiapine Fumarate (Quetiapine Fumarate 50 Mg Tablet) 250 mg PO BEDTIME [facility] Last Admin: 06/05/23 20:08 Dose: 250 mg Allergies Allergies Allergy/AdvReac Type Severity Reaction Status Date / Time ibuprofen [IBUPROFEN] Allergy Unknown RASH Verified 04/04/22 13:22 henderson peppers Allergy Hives Uncoded 08/23/22 14:47 Assessment & Plan Assessment & Plan (1) MDD (major depressive disorder), recurrent severe, without psychosis: Status: Acute Code(s): F33.2 - Major depressive disorder, recurrent severe without psychotic features (2) PTSD (post-traumatic stress disorder): Status: Acute Code(s): F43.10 - Post-traumatic stress disorder, unspecified (3) Opioid dependence: Status: Acute Code(s): F11.20 - Opioid dependence, uncomplicated (4) Cocaine use disorder: Status: Acute Code(s): F14.10 - Cocaine abuse, uncomplicated Plan Patient is a 47 year old male with hx of MDD, PTSD, cocaine abuse and opioid abuse who self presented to ER d/t suicidal ideation secondary to increased depressive symptoms. Plan: CV 15 minute safety checks Continue home medications Referral to outpatient therapist and prescriber Referral to substance abuse program Labs to be drawn in AM. 06/04: Isolative. tearful. pt reports feeling depressed ; pt stated, I'm thinking about everything. I just don't know how to handle it and how I'm supposed to bury my daughter . Pt reports he continues to have suicidal ideation. He is requesting a substance abuse program to maintain sobriety. Continue current tx plan. 06/05: Active on unit, social with peers. irritable. Pt reports he is grieving the loss of my daughter ; pt stated, I know I need to go to a substance abuse program because if I don't I will relapse. I don't want the [facility] because I know where to get high there. I'll go anywhere. I don't want to do this to my other daughter . Pt reports he plans on contacting [facility] in the [facility] and plans on talking to his motor coach bus driver to obtain a ride to a substance abuse program. denies SI/HI/VH/AH. Increase Wellbutrin XL to 300mg PO daily DC topamax per pt request Increase Seroquel to 250mg PO bedtime 06/06: irritable. Pt stated, I'm frustrated because I can't find a substance abuse program and I'm pissed that my daughter is taken away from me . Pt reports his motor coach bus driver is trying to find somewhere for me to go . He reports sleeping well, no medications side effects. denies SI/HI/VH/AH. continue current tx plan. Patient educated on: diagnosis, medication risk/benefits, substance abuse and therapeutic strategies Informed Consent: understands Reason for continued inpatient stay Substantial Risk for: med/psych decompensation Time Spent With Patient Time: Total time managing care of this patient today _20___ minutes.
[2023-06-06] MEDS: Nicotine Polacrilex Lozenge 2 MG LOZENGE BUCCAL ×4 (10:31→20:11)
[2023-06-06 16:00] VITALS: PULSE 63
[2023-06-06 19:50] VITALS: BP 138/83; PULSE 68; RESP 18; TEMP 36.4; O2SAT 97
[2023-06-06] MEDS: Melatonin 3 MG TABLET 6 MG PO (20:07)
[2023-06-06] MEDS: QUEtiapine Fumarate 50 MG TABLET 250 MG PO (20:08)
[2023-06-06] MEDS: Prazosin HCL 1 MG CAPSULE 4 MG PO (20:09)
[2023-06-07] VITALS: PULSE 68
[2023-06-07 07:13] VITALS: BP 122/61; PULSE 73; RESP 14; TEMP 36.4; O2SAT 97
[2023-06-07 08:00] VITALS: PULSE 73
[2023-06-07] MEDS: Nicotine 21 MG PATCH.TD24 TRANSDERMA (09:04)
[2023-06-07] MEDS: Gabapentin 400 MG CAPSULE PO ×3 (09:05→20:19)
[2023-06-07] MEDS: FLUoxetine HCl Oral Solution 20 MG/5 ML SOLUTION 10 MG PO (09:05)
[2023-06-07] MEDS: buPROPion HCl XL 300 MG TAB.ER.24H PO (09:05)
[2023-06-07] MEDS: methADONE HCl 20 MG/2 ML ORAL.CONC 70 MG PO (09:06)
[2023-06-07] MEDS: Nicotine Polacrilex Lozenge 2 MG LOZENGE BUCCAL ×5 (09:35→20:20)
--- NOTE | 2023-06-07 13:20 | HO.PSYCHPN ---
Subjective Subjective Date of Service: 06/07/23 Reason For Visit: Major depressive disorder, recurrent, severe Subjective Notes: Conditional Voluntary Interim History: Patient was seen and discussed in rounds today. Records and plans were reviewed. He has been doing better with no complaints of depression or anxiety. Some irritability. He talked about his recent losses. He has not scoring much on the withdrawal protocol/opiate. No changes were made Review of Systems Review of Systems Yes all other systems are reviewed and are negative Mental Status Exam Mental Status Exam Narrative: In today's visit he is alert, oriented and pleasant. Normal speech. Moderate eye contact. Appropriate affect. No signs of psychosis. No suicidal homicidal ideations. Cognitively is intact. Judgment is intact Diagnostics Vital Signs (24Hr): Vital Signs - 24 hr 06/06/23 19:50 06/07/23 07:13 Temperature 97.5 F 97.6 F Pulse Rate 68 73 Respiratory Rate 18 14 Blood Pressure 138/83 122/61 Pulse Oximetry 97 97 Oxygen Delivery Method Room Air Room Air BMI result Body Mass Index 53.5 Labs 06/04/23 14:40 06/04/23 14:40 Medications Medications Current Medications Acetaminophen (Acetaminophen 325 Mg Tablet) 650 mg PO Q6H PRN PRN Reason: Headache/Pain Mild Scale (1-3) Al Hydroxide/Mg Hydroxide (Magnesium Hydrox/Alum Hydrox 30 Ml Oral.Susp) 30 ml PO Q6H PRN PRN Reason: Heartburn/Nausea Albuterol Sulfate (Albuterol Sulfate 90 Mcg 8 Gm Inhaler) 1 puff INHALE RQ6H PRN PRN Reason: bronchospasm Bupropion HCl (Bupropion Hcl Xl 300 Mg Tab.Er.24h) 300 mg PO DAILY [facility] Last Admin: 06/07/23 09:05 Dose: 300 mg Clonidine HCl (Clonidine Hcl 0.1 Mg Tablet) 0.1 mg PO Q4H PRN; Protocol PRN Reason: palpitations/anxiety Last Admin: 06/04/23 09:41 Dose: 0.1 mg Fluoxetine HCl (Fluoxetine Hcl Oral Solution 20 Mg/5 Ml Solution) 10 mg PO DAILY [facility] Last Admin: 06/07/23 09:05 Dose: 10 mg Gabapentin (Gabapentin 400 Mg Capsule) 400 mg PO TID [facility] Last Admin: 06/07/23 09:05 Dose: 400 mg Hydroxyzine HCl (Hydroxyzine Hcl 25 Mg Tablet) 25 mg PO Q6H PRN PRN Reason: Anxiety Magnesium Hydroxide (Milk Of Magnesia 30 Ml Oral.Susp) 30 ml PO DAILY PRN PRN Reason: Constipation Melatonin (Melatonin 3 Mg Tablet) 6 mg PO BEDTIME [facility] Last Admin: 06/06/23 20:07 Dose: 6 mg Methadone HCl (Methadone Hcl 20 Mg/2 Ml Oral.Conc) 70 mg PO DAILY [facility] Last Admin: 06/07/23 09:06 Dose: 70 mg Nicotine (Nicotine 21 Mg Patch.Td24) 21 mg TRANSDERMA DAILY [facility] Last Admin: 06/07/23 09:04 Dose: 21 mg Nicotine Polacrilex (Nicotine Polacrilex Lozenge 2 Mg Lozenge) 2 mg BUCCAL Q2H PRN PRN Reason: Nicotine Cravings Last Admin: 06/07/23 11:39 Dose: 2 mg Prazosin HCl (Prazosin Hcl 1 Mg Capsule) 4 mg PO BEDTIME [facility]; Protocol Last Admin: 06/06/23 20:09 Dose: 4 mg Quetiapine Fumarate (Quetiapine Fumarate 50 Mg Tablet) 50 mg PO BID PRN PRN Reason: agitation Last Admin: 06/04/23 14:21 Dose: 50 mg Quetiapine Fumarate (Quetiapine Fumarate 50 Mg Tablet) 250 mg PO BEDTIME [facility] Last Admin: 06/06/23 20:08 Dose: 250 mg Allergies Allergies Allergy/AdvReac Type Severity Reaction Status Date / Time ibuprofen [IBUPROFEN] Allergy Unknown RASH Verified 04/04/22 13:22 henderson peppers Allergy Hives Uncoded 08/23/22 14:47 Assessment & Plan Assessment & Plan (1) MDD (major depressive disorder), recurrent severe, without psychosis: Status: Acute Code(s): F33.2 - Major depressive disorder, recurrent severe without psychotic features (2) PTSD (post-traumatic stress disorder): Status: Acute Code(s): F43.10 - Post-traumatic stress disorder, unspecified (3) Opioid dependence: Status: Acute Code(s): F11.20 - Opioid dependence, uncomplicated (4) Cocaine use disorder: Status: Acute Code(s): F14.10 - Cocaine abuse, uncomplicated Plan Patient is a 47 year old male with hx of MDD, PTSD, cocaine abuse and opioid abuse who self presented to ER d/t suicidal ideation secondary to increased depressive symptoms. Plan: CV 15 minute safety checks Continue home medications Referral to outpatient therapist and prescriber Referral to substance abuse program Labs to be drawn in AM. 06/04: Isolative. tearful. pt reports feeling depressed ; pt stated, I'm thinking about everything. I just don't know how to handle it and how I'm supposed to bury my daughter . Pt reports he continues to have suicidal ideation. He is requesting a substance abuse program to maintain sobriety. Continue current tx plan. 06/05: Active on unit, social with peers. irritable. Pt reports he is grieving the loss of my daughter ; pt stated, I know I need to go to a substance abuse program because if I don't I will relapse. I don't want the [facility] because I know where to get high there. I'll go 06/07/23: Continue current regimen and plansnywhere. I don't want to do this to my other daughter . Pt reports he plans on contacting [facility] in the [facility] and plans on talking to his oil recovery unit operator to obtain a ride to a substance abuse program. denies SI/HI/VH/AH. Increase Wellbutrin XL to 300mg PO daily DC topamax per pt request Increase Seroquel to 250mg PO bedtime 06/06: irritable. Pt stated, I'm frustrated because I can't find a substance abuse program and I'm pissed that my daughter is taken away from me . Pt reports his oil recovery unit operator is trying to find somewhere for me to go . He reports sleeping well, no medications side effects. denies SI/HI/VH/AH. continue current tx plan 06/07/23: Continue current regimen and plans Reason for continued inpatient stay Substantial Risk for: med/psych decompensation Time Spent With Patient Time: Total time managing care of this patient today ____ minutes.
[2023-06-07 16:00] VITALS: PULSE 78
[2023-06-07 20:05] VITALS: BP 132/75; PULSE 66; RESP 16; TEMP 36.3; O2SAT 97
[2023-06-07] MEDS: Melatonin 3 MG TABLET 6 MG PO (20:15)
[2023-06-07] MEDS: QUEtiapine Fumarate 50 MG TABLET 250 MG PO (20:16)
[2023-06-07] MEDS: Prazosin HCL 1 MG CAPSULE 4 MG PO (20:18)
[2023-06-08] VITALS: PULSE 68
[2023-06-08 08:00] VITALS: BP 120/65; PULSE 58; RESP 14; TEMP 36.5; O2SAT 99
[2023-06-08] MEDS: methADONE HCl 20 MG/2 ML ORAL.CONC 70 MG PO (08:29)
[2023-06-08] MEDS: Nicotine 21 MG PATCH.TD24 TRANSDERMA (08:29)
[2023-06-08] MEDS: FLUoxetine HCl Oral Solution 20 MG/5 ML SOLUTION 10 MG PO (08:30)
[2023-06-08] MEDS: buPROPion HCl XL 300 MG TAB.ER.24H PO (08:30)
[2023-06-08] MEDS: Gabapentin 400 MG CAPSULE PO (08:30)
[2023-06-08 08:56] VITALS: PULSE 58
[2023-06-08] MEDS: Nicotine Polacrilex Lozenge 2 MG LOZENGE BUCCAL ×5 (09:34→20:04)
--- NOTE | 2023-06-08 11:19 | P.PNPSI_ITS ---
Subjective Subjective Date of Service: 06/08/23 Reason For Visit: Major depressive disorder, recurrent, severe Subjective Notes: Conditional Voluntary Interim History: Patient was seen and discussed in rounds today. Records and plans were reviewed. He states that he used to be on gabapentin 800 mg t.i.d. and he is only on 400 mg. In review increase that to 600 mg t.i.d.. He also states that the p.r.n. Seroquel during the day makes him just sleepy and wanted another option. He states hydroxyzine, clonidine do not do anything for him and it appears that he is after something like benzodiazepine but he did not say so specifically and I told him that I did not feel comfortable putting him on anything controlled. I would decrease the Seroquel to 25 mg b.i.d. p.r.n. Review of Systems Review of Systems Yes all other systems are reviewed and are negative Mental Status Exam Mental Status Exam Narrative: In today's visit he is alert, oriented and initially pleasant but that changed when he learned that I was not going to give him another p.r.n. that he was happy with such as a benzodiazepine. Speech is normal. No eye contact. Affect is appropriate and irritable and a little angry but in control.. No SI. No signs of psychosis. Cognitively intact. Judgment is intact Diagnostics Vital Signs (24Hr): Vital Signs - 24 hr 06/07/23 20:05 06/08/23 08:00 Temperature 97.4 F 97.7 F Pulse Rate 66 58 Respiratory Rate 16 14 Blood Pressure 132/75 120/65 Pulse Oximetry 97 99 Oxygen Delivery Method Room Air Room Air BMI result Body Mass Index 53.5 Labs 06/04/23 14:40 06/04/23 14:40 Medications Medications Current Medications Acetaminophen (Acetaminophen 325 Mg Tablet) 650 mg PO Q6H PRN PRN Reason: Headache/Pain Mild Scale (1-3) Al Hydroxide/Mg Hydroxide (Magnesium Hydrox/Alum Hydrox 30 Ml Oral.Susp) 30 ml PO Q6H PRN PRN Reason: Heartburn/Nausea Albuterol Sulfate (Albuterol Sulfate 90 Mcg 8 Gm Inhaler) 1 puff INHALE RQ6H PRN PRN Reason: bronchospasm Bupropion HCl (Bupropion Hcl Xl 300 Mg Tab.Er.24h) 300 mg PO DAILY [facility] Last Admin: 06/08/23 08:30 Dose: 300 mg Clonidine HCl (Clonidine Hcl 0.1 Mg Tablet) 0.1 mg PO Q4H PRN; Protocol PRN Reason: palpitations/anxiety Last Admin: 06/04/23 09:41 Dose: 0.1 mg Fluoxetine HCl (Fluoxetine Hcl Oral Solution 20 Mg/5 Ml Solution) 10 mg PO DAILY [facility] Last Admin: 06/08/23 08:30 Dose: 10 mg Gabapentin (Gabapentin 400 Mg Capsule) 400 mg PO TID [facility] Last Admin: 06/08/23 08:30 Dose: 400 mg Hydroxyzine HCl (Hydroxyzine Hcl 25 Mg Tablet) 25 mg PO Q6H PRN PRN Reason: Anxiety Magnesium Hydroxide (Milk Of Magnesia 30 Ml Oral.Susp) 30 ml PO DAILY PRN PRN Reason: Constipation Melatonin (Melatonin 3 Mg Tablet) 6 mg PO BEDTIME [facility] Last Admin: 06/07/23 20:15 Dose: 6 mg Methadone HCl (Methadone Hcl 20 Mg/2 Ml Oral.Conc) 70 mg PO DAILY [facility] Last Admin: 06/08/23 08:29 Dose: 70 mg Nicotine (Nicotine 21 Mg Patch.Td24) 21 mg TRANSDERMA DAILY [facility] Last Admin: 06/08/23 08:29 Dose: 21 mg Nicotine Polacrilex (Nicotine Polacrilex Lozenge 2 Mg Lozenge) 2 mg BUCCAL Q2H PRN PRN Reason: Nicotine Cravings Last Admin: 06/08/23 09:34 Dose: 2 mg Prazosin HCl (Prazosin Hcl 1 Mg Capsule) 4 mg PO BEDTIME [facility]; Protocol Last Admin: 06/07/23 20:18 Dose: 4 mg Quetiapine Fumarate (Quetiapine Fumarate 50 Mg Tablet) 50 mg PO BID PRN PRN Reason: agitation Last Admin: 06/04/23 14:21 Dose: 50 mg Quetiapine Fumarate (Quetiapine Fumarate 50 Mg Tablet) 250 mg PO BEDTIME [facility] Last Admin: 06/07/23 20:16 Dose: 250 mg Allergies Allergies Allergy/AdvReac Type Severity Reaction Status Date / Time ibuprofen [IBUPROFEN] Allergy Unknown RASH Verified 04/04/22 13:22 henderson peppers Allergy Hives Uncoded 08/23/22 14:47 Assessment & Plan Assessment & Plan (1) MDD (major depressive disorder), recurrent severe, without psychosis: Status: Acute Code(s): F33.2 - Major depressive disorder, recurrent severe without psychotic features (2) PTSD (post-traumatic stress disorder): Status: Acute Code(s): F43.10 - Post-traumatic stress disorder, unspecified (3) Opioid dependence: Status: Acute Code(s): F11.20 - Opioid dependence, uncomplicated (4) Cocaine use disorder: Status: Acute Code(s): F14.10 - Cocaine abuse, uncomplicated Plan Patient is a 47 year old male with hx of MDD, PTSD, cocaine abuse and opioid abuse who self presented to ER d/t suicidal ideation secondary to increased depressive symptoms. Plan: CV 15 minute safety checks Continue home medications Referral to outpatient therapist and prescriber Referral to substance abuse program Labs to be drawn in AM. 06/04: Isolative. tearful. pt reports feeling depressed ; pt stated, I'm thinking about everything. I just don't know how to handle it and how I'm supposed to bury my daughter . Pt reports he continues to have suicidal ideation. He is requesting a substance abuse program to maintain sobriety. Continue current tx plan. 06/05: Active on unit, social with peers. irritable. Pt reports he is grieving the loss of my daughter ; pt stated, I know I need to go to a substance abuse program because if I don't I will relapse. I don't want the [facility] because I know where to get high there. I'll go 06/07/23: Continue current regimen and plansnywhere. I don't want to do this to my other daughter . Pt reports he plans on contacting [facility] in the [facility] and plans on talking to his legal recovery specialist to obtain a ride to a substance abuse program. denies SI/HI/VH/AH. Increase Wellbutrin XL to 300mg PO daily DC topamax per pt request Increase Seroquel to 250mg PO bedtime 06/06: irritable. Pt stated, I'm frustrated because I can't find a substance abuse program and I'm pissed that my daughter is taken away from me . Pt reports his legal recovery specialist is trying to find somewhere for me to go . He reports sleeping well, no medications side effects. denies SI/HI/VH/AH. continue current tx plan 06/07/23: Continue current regimen and plans 06/08/2023: Continue current regimen and plans. Increase gabapentin to 600 mg t.i.d. and decrease Seroquel to 25 mg b.i.d. p.r.n. Reason for continued inpatient stay Substantial Risk for: med/psych decompensation Time Spent With Patient Time: Total time managing care of this patient today ____ minutes.
[2023-06-08] MEDS: Gabapentin 300 MG CAPSULE 600 MG PO ×2 (15:06→20:02)
[2023-06-08 15:32] VITALS: PULSE 72
[2023-06-08 19:55] VITALS: BP 135/73; PULSE 74; RESP 18; TEMP 36.6; O2SAT 98
[2023-06-08] MEDS: QUEtiapine Fumarate 50 MG TABLET 250 MG PO (20:00)
[2023-06-08] MEDS: Melatonin 3 MG TABLET 6 MG PO (20:01)
[2023-06-08] MEDS: Prazosin HCL 1 MG CAPSULE 4 MG PO (20:03)
[2023-06-08 23:56] VITALS: PULSE 74
[2023-06-09] MEDS: Nicotine Polacrilex Lozenge 2 MG LOZENGE BUCCAL ×6 (01:56→20:09)
[2023-06-09 07:20] VITALS: BP 118/57; PULSE 68; RESP 16; TEMP 36.3; O2SAT 96
[2023-06-09 08:00] VITALS: PULSE 68
[2023-06-09] MEDS: methADONE HCl 20 MG/2 ML ORAL.CONC 70 MG PO (08:46)
[2023-06-09] MEDS: FLUoxetine HCl Oral Solution 20 MG/5 ML SOLUTION 10 MG PO (08:46)
[2023-06-09] MEDS: Gabapentin 300 MG CAPSULE 600 MG PO ×3 (08:47→20:09)
[2023-06-09] MEDS: Nicotine 21 MG PATCH.TD24 TRANSDERMA (08:47)
[2023-06-09] MEDS: buPROPion HCl XL 300 MG TAB.ER.24H PO (08:47)
--- NOTE | 2023-06-09 11:58 | P.PNPSI_ITS ---
Subjective Subjective Date of Service: 06/09/23 Reason For Visit: Major depressive disorder, recurrent, severe Subjective Notes: Conditional Voluntary Interim History: Reviewed with . Irritable, yelling. brief in interaction today. Met with pt in unit office. T/W discussed discharge planning, possible DC to [facility] or long-term this week. Pt stated, I don't want to go to the [facility] or a fucking long-term! ; pt got up from chair, slammed office door. Staff informed T/W, pt began yelling at social sciences instructor regarding placement and throwing papers around. Medication Compliance: Yes Side effects from medications: No Attending Groups: Intermittent Review of Systems Constitutional: Reports as per HPI Eyes: Reports as per HPI Reports as per HPI Cardiovascular: Reports as per HPI Respiratory: Reports as per HPI Gastrointestinal: Reports as per HPI Genitourinary: Reports as per HPI Musculoskeletal: Reports as per HPI Skin/Breast: Reports as per HPI Reports as per HPI Psychiatric: Reports as per HPI Endocrine: Reports as per HPI Hematologic/Lymphatic: Reports as per HPI Allergic/Immunologic: Reports as per HPI Mental Status Exam Mental Status Exam Narrative: Pt is alert and oriented; behavior is irritable, yelling, throwing papers; dressed in casual attire; eye contact appropriate; thought process is organized; Thought content is on tx; otherwise pertinent to relevant topics and without any delusional content, paranoid ideations or grandiosity. Diagnostics Vital Signs (24Hr): Vital Signs - 24 hr 06/08/23 19:55 06/09/23 07:20 Temperature 98 F 97.3 F Pulse Rate 74 68 Respiratory Rate 18 16 Blood Pressure 135/73 118/57 L Pulse Oximetry 98 96 Oxygen Delivery Method Room Air Room Air BMI result Body Mass Index 53.5 Labs 06/04/23 14:40 06/04/23 14:40 Medications Medications Current Medications Acetaminophen (Acetaminophen 325 Mg Tablet) 650 mg PO Q6H PRN PRN Reason: Headache/Pain Mild Scale (1-3) Al Hydroxide/Mg Hydroxide (Magnesium Hydrox/Alum Hydrox 30 Ml Oral.Susp) 30 ml PO Q6H PRN PRN Reason: Heartburn/Nausea Albuterol Sulfate (Albuterol Sulfate 90 Mcg 8 Gm Inhaler) 1 puff INHALE RQ6H PRN PRN Reason: bronchospasm Bupropion HCl (Bupropion Hcl Xl 300 Mg Tab.Er.24h) 300 mg PO DAILY [facility] Last Admin: 06/09/23 08:47 Dose: 300 mg Clonidine HCl (Clonidine Hcl 0.1 Mg Tablet) 0.1 mg PO Q4H PRN; Protocol PRN Reason: palpitations/anxiety Last Admin: 06/04/23 09:41 Dose: 0.1 mg Fluoxetine HCl (Fluoxetine Hcl Oral Solution 20 Mg/5 Ml Solution) 10 mg PO DAILY [facility] Last Admin: 06/09/23 08:46 Dose: 10 mg Gabapentin (Gabapentin 300 Mg Capsule) 600 mg PO TID [facility] Last Admin: 06/09/23 08:47 Dose: 600 mg Hydroxyzine HCl (Hydroxyzine Hcl 25 Mg Tablet) 25 mg PO Q6H PRN PRN Reason: Anxiety Magnesium Hydroxide (Milk Of Magnesia 30 Ml Oral.Susp) 30 ml PO DAILY PRN PRN Reason: Constipation Melatonin (Melatonin 3 Mg Tablet) 6 mg PO BEDTIME [facility] Last Admin: 06/08/23 20:01 Dose: 6 mg Methadone HCl (Methadone Hcl 20 Mg/2 Ml Oral.Conc) 70 mg PO DAILY [facility] Last Admin: 06/09/23 08:46 Dose: 70 mg Nicotine (Nicotine 21 Mg Patch.Td24) 21 mg TRANSDERMA DAILY [facility] Last Admin: 06/09/23 08:47 Dose: 21 mg Nicotine Polacrilex (Nicotine Polacrilex Lozenge 2 Mg Lozenge) 2 mg BUCCAL Q2H PRN PRN Reason: Nicotine Cravings Last Admin: 06/09/23 10:48 Dose: 2 mg Prazosin HCl (Prazosin Hcl 1 Mg Capsule) 4 mg PO BEDTIME [facility]; Protocol Last Admin: 06/08/23 20:03 Dose: 4 mg Quetiapine Fumarate (Quetiapine Fumarate 50 Mg Tablet) 250 mg PO BEDTIME [facility] Last Admin: 06/08/23 20:00 Dose: 250 mg Quetiapine Fumarate (Quetiapine Fumarate 25 Mg Tablet) 25 mg PO BID PRN PRN Reason: agitation Allergies Allergies Allergy/AdvReac Type Severity Reaction Status Date / Time ibuprofen [IBUPROFEN] Allergy Unknown RASH Verified 04/04/22 13:22 henderson peppers Allergy Hives Uncoded 08/23/22 14:47 Assessment & Plan Assessment & Plan (1) MDD (major depressive disorder), recurrent severe, without psychosis: Status: Acute Code(s): F33.2 - Major depressive disorder, recurrent severe without psychotic features (2) PTSD (post-traumatic stress disorder): Status: Acute Code(s): F43.10 - Post-traumatic stress disorder, unspecified (3) Opioid dependence: Status: Acute Code(s): F11.20 - Opioid dependence, uncomplicated (4) Cocaine use disorder: Status: Acute Code(s): F14.10 - Cocaine abuse, uncomplicated Plan Patient is a 47 year old male with hx of MDD, PTSD, cocaine abuse and opioid abuse who self presented to ER d/t suicidal ideation secondary to increased depressive symptoms. Plan: CV 15 minute safety checks Continue home medications Referral to outpatient therapist and prescriber Referral to substance abuse program Labs to be drawn in AM. 06/04: Isolative. tearful. pt reports feeling depressed ; pt stated, I'm thinking about everything. I just don't know how to handle it and how I'm supposed to bury my daughter . Pt reports he continues to have suicidal ideation. He is requesting a substance abuse program to maintain sobriety. Continue current tx plan. 06/05: Active on unit, social with peers. irritable. Pt reports he is grieving the loss of my daughter ; pt stated, I know I need to go to a substance abuse program because if I don't I will relapse. I don't want the [facility] because I know where to get high there. I'll go 06/07/23: Continue current regimen and plansnywhere. I don't want to do this to my other daughter . Pt reports he plans on contacting [facility] in the [facility] and plans on talking to his resource recovery specialist to obtain a ride to a substance abuse program. denies SI/HI/VH/AH. Increase Wellbutrin XL to 300mg PO daily DC topamax per pt request Increase Seroquel to 250mg PO bedtime 06/06: irritable. Pt stated, I'm frustrated because I can't find a substance abuse program and I'm pissed that my daughter is taken away from me . Pt reports his resource recovery specialist is trying to find somewhere for me to go . He reports sleeping well, no medications side effects. denies SI/HI/VH/AH. continue current tx plan 06/07/23: Continue current regimen and plans 06/08/2023: Continue current regimen and plans. Increase gabapentin to 600 mg t.i.d. and decrease Seroquel to 25 mg b.i.d. p.r.n. 06/09: Irritable, yelling. brief in interaction today. Met with pt in unit office. T/W discussed discharge planning, possible DC to [facility] or long-term this week. Pt stated, I don't want to go to the [facility] or a fucking long-term! ; pt got up from chair, slammed office door. Staff informed T/W, pt began yelling at social sciences instructor regarding placement and throwing papers around. Continue current tx plan. Patient educated on: diagnosis, medication risk/benefits and substance abuse Informed Consent: understands Reason for continued inpatient stay Substantial Risk for: med/psych decompensation Time Spent With Patient Time: Total time managing care of this patient today _20___ minutes.
[2023-06-09 16:13] VITALS: PULSE 63
[2023-06-09 20:00] VITALS: BP 144/81; PULSE 72; RESP 16; TEMP 36.2; O2SAT 96
[2023-06-09] MEDS: QUEtiapine Fumarate 50 MG TABLET 250 MG PO (20:08)
[2023-06-09] MEDS: Prazosin HCL 1 MG CAPSULE 4 MG PO (20:09)
[2023-06-09] MEDS: Melatonin 3 MG TABLET 6 MG PO (20:09)
[2023-06-09 23:54] VITALS: PULSE 72
[2023-06-10 08:00] VITALS: PULSE 71
[2023-06-10 09:15] VITALS: BP 110/57; PULSE 71; RESP 18; TEMP 36.8; O2SAT 97
[2023-06-10] MEDS: methADONE HCl 20 MG/2 ML ORAL.CONC 70 MG PO (09:19)
[2023-06-10] MEDS: FLUoxetine HCl Oral Solution 20 MG/5 ML SOLUTION 10 MG PO (09:20)
[2023-06-10] MEDS: Nicotine 21 MG PATCH.TD24 TRANSDERMA (09:21)
[2023-06-10] MEDS: buPROPion HCl XL 300 MG TAB.ER.24H PO (09:21)
[2023-06-10] MEDS: Gabapentin 300 MG CAPSULE 600 MG PO ×3 (09:21→20:08)
[2023-06-10] MEDS: Nicotine Polacrilex Lozenge 2 MG LOZENGE BUCCAL ×5 (09:24→20:09)
--- NOTE | 2023-06-10 13:32 | P.PNPSI_ITS ---
Subjective Subjective Date of Service: 06/10/23 Reason For Visit: Major depressive disorder, recurrent, severe Subjective Notes: Conditional Voluntary Interim History: Reviewed with . Irritable. brief in interaction. Met with pt in unit office. Pt reports he is working on getting into a program . T/W discussed discharge planning with pt; pt stated, I don't want to deal with the social welfare research worker. I'm going to leave Friday and go use drugs . Continue to report he does not want to go to the [facility] or correction. Medication Compliance: Yes Side effects from medications: No Attending Groups: Intermittent Review of Systems Constitutional: Reports as per HPI Eyes: Reports as per HPI Reports as per HPI Cardiovascular: Reports as per HPI Respiratory: Reports as per HPI Gastrointestinal: Reports as per HPI Genitourinary: Reports as per HPI Musculoskeletal: Reports as per HPI Skin/Breast: Reports as per HPI Reports as per HPI Psychiatric: Reports as per HPI Endocrine: Reports as per HPI Hematologic/Lymphatic: Reports as per HPI Allergic/Immunologic: Reports as per HPI Mental Status Exam Mental Status Exam Narrative: Pt is alert and oriented; behavior is irritable,guarded; dressed in casual attire; eye contact appropriate; thought process is organized; Thought content is on tx; otherwise pertinent to relevant topics and without any delusional content, paranoid ideations or grandiosity. Diagnostics Vital Signs (24Hr): Vital Signs - 24 hr 06/09/23 20:00 06/10/23 09:15 Temperature 97.2 F 98.2 F Pulse Rate 72 71 Respiratory Rate 16 18 Blood Pressure 144/81 H 110/57 L Pulse Oximetry 96 97 Oxygen Delivery Method Room Air Room Air BMI result Body Mass Index 53.5 Labs 06/04/23 14:40 06/04/23 14:40 Medications Medications Current Medications Acetaminophen (Acetaminophen 325 Mg Tablet) 650 mg PO Q6H PRN PRN Reason: Headache/Pain Mild Scale (1-3) Al Hydroxide/Mg Hydroxide (Magnesium Hydrox/Alum Hydrox 30 Ml Oral.Susp) 30 ml PO Q6H PRN PRN Reason: Heartburn/Nausea Albuterol Sulfate (Albuterol Sulfate 90 Mcg 8 Gm Inhaler) 1 puff INHALE RQ6H PRN PRN Reason: bronchospasm Bupropion HCl (Bupropion Hcl Xl 300 Mg Tab.Er.24h) 300 mg PO DAILY [facility] Last Admin: 06/10/23 09:21 Dose: 300 mg Fluoxetine HCl (Fluoxetine Hcl Oral Solution 20 Mg/5 Ml Solution) 10 mg PO DAILY [facility] Last Admin: 06/10/23 09:20 Dose: 10 mg Gabapentin (Gabapentin 300 Mg Capsule) 600 mg PO TID [facility] Last Admin: 06/10/23 09:21 Dose: 600 mg Hydroxyzine HCl (Hydroxyzine Hcl 25 Mg Tablet) 25 mg PO Q6H PRN PRN Reason: Anxiety Magnesium Hydroxide (Milk Of Magnesia 30 Ml Oral.Susp) 30 ml PO DAILY PRN PRN Reason: Constipation Melatonin (Melatonin 3 Mg Tablet) 6 mg PO BEDTIME [facility] Last Admin: 06/09/23 20:09 Dose: 6 mg Methadone HCl (Methadone Hcl 20 Mg/2 Ml Oral.Conc) 70 mg PO DAILY [facility] Last Admin: 06/10/23 09:19 Dose: 70 mg Nicotine (Nicotine 21 Mg Patch.Td24) 21 mg TRANSDERMA DAILY [facility] Last Admin: 06/10/23 09:21 Dose: 21 mg Nicotine Polacrilex (Nicotine Polacrilex Lozenge 2 Mg Lozenge) 2 mg BUCCAL Q2H PRN PRN Reason: Nicotine Cravings Last Admin: 06/10/23 12:14 Dose: 2 mg Prazosin HCl (Prazosin Hcl 1 Mg Capsule) 4 mg PO BEDTIME [facility]; Protocol Last Admin: 06/09/23 20:09 Dose: 4 mg Quetiapine Fumarate (Quetiapine Fumarate 50 Mg Tablet) 250 mg PO BEDTIME [facility] Last Admin: 06/09/23 20:08 Dose: 250 mg Allergies Allergies Allergy/AdvReac Type Severity Reaction Status Date / Time ibuprofen [IBUPROFEN] Allergy Unknown RASH Verified 04/04/22 13:22 henderson peppers Allergy Hives Uncoded 08/23/22 14:47 Assessment & Plan Assessment & Plan (1) MDD (major depressive disorder), recurrent severe, without psychosis: Status: Acute Code(s): F33.2 - Major depressive disorder, recurrent severe without psychotic features (2) PTSD (post-traumatic stress disorder): Status: Acute Code(s): F43.10 - Post-traumatic stress disorder, unspecified (3) Opioid dependence: Status: Acute Code(s): F11.20 - Opioid dependence, uncomplicated (4) Cocaine use disorder: Status: Acute Code(s): F14.10 - Cocaine abuse, uncomplicated Plan Patient is a 47 year old male with hx of MDD, PTSD, cocaine abuse and opioid abuse who self presented to ER d/t suicidal ideation secondary to increased depressive symptoms. Plan: CV 15 minute safety checks Continue home medications Referral to outpatient therapist and prescriber Referral to substance abuse program Labs to be drawn in AM. 06/04: Isolative. tearful. pt reports feeling depressed ; pt stated, I'm thinking about everything. I just don't know how to handle it and how I'm supposed to bury my daughter . Pt reports he continues to have suicidal ideation. He is requesting a substance abuse program to maintain sobriety. Continue current tx plan. 06/05: Active on unit, social with peers. irritable. Pt reports he is grieving the loss of my daughter ; pt stated, I know I need to go to a substance abuse program because if I don't I will relapse. I don't want the [facility] because I know where to get high there. I'll go 06/07/23: Continue current regimen and plansnywhere. I don't want to do this to my other daughter . Pt reports he plans on contacting [facility] in the [facility] and plans on talking to his project coach to obtain a ride to a substance abuse program. denies SI/HI/VH/AH. Increase Wellbutrin XL to 300mg PO daily DC topamax per pt request Increase Seroquel to 250mg PO bedtime 06/06: irritable. Pt stated, I'm frustrated because I can't find a substance abuse program and I'm pissed that my daughter is taken away from me . Pt reports his project coach is trying to find somewhere for me to go . He reports sleeping well, no medications side effects. denies SI/HI/VH/AH. continue current tx plan 06/07/23: Continue current regimen and plans 06/08/2023: Continue current regimen and plans. Increase gabapentin to 600 mg t.i.d. and decrease Seroquel to 25 mg b.i.d. p.r.n. 06/09: Irritable, yelling. brief in interaction today. Met with pt in unit office. T/W discussed discharge planning, possible DC to [facility] or correction this week. Pt stated, I don't want to go to the [facility] or a fucking correction! ; pt got up from chair, slammed office door. Staff informed T/W, pt began yelling at social welfare research worker regarding placement and throwing papers around. Continue current tx plan. 06/10: Irritable. brief in interaction. Met with pt in unit office. Pt reports he is working on getting into a program . T/W discussed discharge planning with pt; pt stated, I don't want to deal with the social welfare research worker. I'm going to leave Friday and go use drugs . Continue to report he does not want to go to the [facility] or correction. Continue current tx plan. Patient educated on: diagnosis, medication risk/benefits, substance abuse and therapeutic strategies Informed Consent: understands Reason for continued inpatient stay Substantial Risk for: med/psych decompensation Time Spent With Patient Time: Total time managing care of this patient today _20___ minutes.
[2023-06-10 19:35] VITALS: BP 139/8; PULSE 72; RESP 16; TEMP 36.7; O2SAT 98
[2023-06-10] MEDS: QUEtiapine Fumarate 50 MG TABLET 250 MG PO (20:08)
[2023-06-10] MEDS: Prazosin HCL 1 MG CAPSULE 4 MG PO (20:08)
[2023-06-10] MEDS: Melatonin 3 MG TABLET 6 MG PO (20:08)
[2023-06-11] MEDS: methADONE HCl 20 MG/2 ML ORAL.CONC 70 MG PO (08:32)
[2023-06-11] MEDS: Nicotine 21 MG PATCH.TD24 TRANSDERMA (08:32)
[2023-06-11] MEDS: Gabapentin 300 MG CAPSULE 600 MG PO ×3 (08:33→20:08)
[2023-06-11] MEDS: buPROPion HCl XL 300 MG TAB.ER.24H PO (08:33)
[2023-06-11] MEDS: FLUoxetine HCl Oral Solution 20 MG/5 ML SOLUTION 10 MG PO (08:33)
[2023-06-11] MEDS: Nicotine Polacrilex Lozenge 2 MG LOZENGE BUCCAL ×4 (08:39→20:08)
--- NOTE | 2023-06-11 09:16 | P.PNPSI_ITS ---
Subjective Subjective Date of Service: 06/11/23 Reason For Visit: Major depressive disorder, recurrent, severe Subjective Notes: Conditional Voluntary Interim History: Reviewed with . Irritable. guarded. observed reading in room. pt reports feeling anxious today; pt stated, I don't know where I'm going to go after here. I'm guessing the [facility] or respite. I'm going to use . denies SI/HI/VH/AH. Medication Compliance: Yes Side effects from medications: No Attending Groups: Intermittent Review of Systems Constitutional: Reports as per HPI Eyes: Reports as per HPI Reports as per HPI Cardiovascular: Reports as per HPI Respiratory: Reports as per HPI Gastrointestinal: Reports as per HPI Genitourinary: Reports as per HPI Musculoskeletal: Reports as per HPI Skin/Breast: Reports as per HPI Reports as per HPI Psychiatric: Reports as per HPI Endocrine: Reports as per HPI Hematologic/Lymphatic: Reports as per HPI Allergic/Immunologic: Reports as per HPI Mental Status Exam Mental Status Exam Narrative: Pt is alert and oriented; behavior is irritable,guarded; dressed in casual attire; eye contact appropriate; thought process is organized; Thought content is on discharge; otherwise pertinent to relevant topics and without any delusional content, paranoid ideations or grandiosity. Diagnostics Vital Signs (24Hr): Vital Signs - 24 hr 06/10/23 19:35 Temperature 98.1 F Pulse Rate 72 Respiratory Rate 16 Blood Pressure 139/8 L Pulse Oximetry 98 Oxygen Delivery Method Room Air BMI result Body Mass Index 53.5 Labs 06/04/23 14:40 06/04/23 14:40 Medications Medications Current Medications Acetaminophen (Acetaminophen 325 Mg Tablet) 650 mg PO Q6H PRN PRN Reason: Headache/Pain Mild Scale (1-3) Al Hydroxide/Mg Hydroxide (Magnesium Hydrox/Alum Hydrox 30 Ml Oral.Susp) 30 ml PO Q6H PRN PRN Reason: Heartburn/Nausea Albuterol Sulfate (Albuterol Sulfate 90 Mcg 8 Gm Inhaler) 1 puff INHALE RQ6H PRN PRN Reason: bronchospasm Bupropion HCl (Bupropion Hcl Xl 300 Mg Tab.Er.24h) 300 mg PO DAILY [facility] Last Admin: 06/11/23 08:33 Dose: 300 mg Fluoxetine HCl (Fluoxetine Hcl Oral Solution 20 Mg/5 Ml Solution) 10 mg PO DAILY [facility] Last Admin: 06/11/23 08:33 Dose: 10 mg Gabapentin (Gabapentin 300 Mg Capsule) 600 mg PO TID [facility] Last Admin: 06/11/23 08:33 Dose: 600 mg Hydroxyzine HCl (Hydroxyzine Hcl 25 Mg Tablet) 25 mg PO Q6H PRN PRN Reason: Anxiety Magnesium Hydroxide (Milk Of Magnesia 30 Ml Oral.Susp) 30 ml PO DAILY PRN PRN Reason: Constipation Melatonin (Melatonin 3 Mg Tablet) 6 mg PO BEDTIME [facility] Last Admin: 06/10/23 20:08 Dose: 6 mg Methadone HCl (Methadone Hcl 20 Mg/2 Ml Oral.Conc) 70 mg PO DAILY [facility] Last Admin: 06/11/23 08:32 Dose: 70 mg Nicotine (Nicotine 21 Mg Patch.Td24) 21 mg TRANSDERMA DAILY [facility] Last Admin: 06/11/23 08:32 Dose: 21 mg Nicotine Polacrilex (Nicotine Polacrilex Lozenge 2 Mg Lozenge) 2 mg BUCCAL Q2H PRN PRN Reason: Nicotine Cravings Last Admin: 06/11/23 08:39 Dose: 2 mg Prazosin HCl (Prazosin Hcl 1 Mg Capsule) 4 mg PO BEDTIME [facility]; Protocol Last Admin: 06/10/23 20:08 Dose: 4 mg Quetiapine Fumarate (Quetiapine Fumarate 50 Mg Tablet) 250 mg PO BEDTIME [facility] Last Admin: 06/10/23 20:08 Dose: 250 mg Sodium Chloride (Sodium Chloride 0.65 % Nasal 44 Ml Sprbtl) 1 spray NOSTRIL-B Q1H PRN PRN Reason: Dry Nasal Passages Allergies Allergies Allergy/AdvReac Type Severity Reaction Status Date / Time ibuprofen [IBUPROFEN] Allergy Unknown RASH Verified 04/04/22 13:22 henderson peppers Allergy Hives Uncoded 08/23/22 14:47 Assessment & Plan Assessment & Plan (1) MDD (major depressive disorder), recurrent severe, without psychosis: Status: Acute Code(s): F33.2 - Major depressive disorder, recurrent severe without psychotic features (2) PTSD (post-traumatic stress disorder): Status: Acute Code(s): F43.10 - Post-traumatic stress disorder, unspecified (3) Opioid dependence: Status: Acute Code(s): F11.20 - Opioid dependence, uncomplicated (4) Cocaine use disorder: Status: Acute Code(s): F14.10 - Cocaine abuse, uncomplicated Plan Patient is a 47 year old male with hx of MDD, PTSD, cocaine abuse and opioid abuse who self presented to ER d/t suicidal ideation secondary to increased depressive symptoms. Plan: CV 15 minute safety checks Continue home medications Referral to outpatient therapist and prescriber Referral to substance abuse program Labs to be drawn in AM. 06/04: Isolative. tearful. pt reports feeling depressed ; pt stated, I'm thinking about everything. I just don't know how to handle it and how I'm supposed to bury my daughter . Pt reports he continues to have suicidal ideation. He is requesting a substance abuse program to maintain sobriety. Continue current tx plan. 06/05: Active on unit, social with peers. irritable. Pt reports he is grieving the loss of my daughter ; pt stated, I know I need to go to a substance abuse program because if I don't I will relapse. I don't want the [facility] because I know where to get high there. I'll go 06/07/23: Continue current regimen and plansnywhere. I don't want to do this to my other daughter . Pt reports he plans on contacting [facility] in the [facility] and plans on talking to his assistant women's soccer coach to obtain a ride to a substance abuse program. denies SI/HI/VH/AH. Increase Wellbutrin XL to 300mg PO daily DC topamax per pt request Increase Seroquel to 250mg PO bedtime 06/06: irritable. Pt stated, I'm frustrated because I can't find a substance abuse program and I'm pissed that my daughter is taken away from me . Pt reports his assistant women's soccer coach is trying to find somewhere for me to go . He reports sleeping well, no medications side effects. denies SI/HI/VH/AH. continue current tx plan 06/07/23: Continue current regimen and plans 06/08/2023: Continue current regimen and plans. Increase gabapentin to 600 mg t.i.d. and decrease Seroquel to 25 mg b.i.d. p.r.n. 06/09: Irritable, yelling. brief in interaction today. Met with pt in unit office. T/W discussed discharge planning, possible DC to [facility] or penitentiary this week. Pt stated, I don't want to go to the [facility] or a fucking penitentiary! ; pt got up from chair, slammed office door. Staff informed T/W, pt began yelling at social research assistant regarding placement and throwing papers around. Continue current tx plan. 06/10: Irritable. brief in interaction. Met with pt in unit office. Pt reports he is working on getting into a program . T/W discussed discharge planning with pt; pt stated, I don't want to deal with the social research assistant. I'm going to leave Friday and go use drugs . Continue to report he does not want to go to the [facility] or penitentiary. Continue current tx plan. 06/11: Irritable. guarded. observed reading in room. pt reports feeling anxious today; pt stated, I don't know where I'm going to go after here. I'm guessing the [facility] or respite. I'm going to use . denies SI/HI/VH/AH. Plan to discharge Friday. Patient educated on: diagnosis, medication risk/benefits, substance abuse and therapeutic strategies Informed Consent: understands Reason for continued inpatient stay Substantial Risk for: med/psych decompensation Time Spent With Patient Time: Total time managing care of this patient today _20___ minutes.
[2023-06-11 10:08] VITALS: BP 136/87; PULSE 86; RESP 20; TEMP 36.2; O2SAT 97
[2023-06-11 19:45] VITALS: BP 132/72; PULSE 72; TEMP 36.6; O2SAT 98
[2023-06-11] MEDS: QUEtiapine Fumarate 50 MG TABLET 250 MG PO (20:05)
[2023-06-11] MEDS: Prazosin HCL 1 MG CAPSULE 4 MG PO (20:06)
[2023-06-11] MEDS: Melatonin 3 MG TABLET 6 MG PO (20:07)
[2023-06-12 07:00] VITALS: BMI 25.3
[2023-06-12 09:00] VITALS: BP 132/96; PULSE 87; RESP 16; TEMP 2.7; TEMP 36.9; O2SAT 95
[2023-06-12] MEDS: buPROPion HCl XL 300 MG TAB.ER.24H PO (09:00)
[2023-06-12] MEDS: Gabapentin 300 MG CAPSULE 600 MG PO ×3 (09:01→20:04)
[2023-06-12] MEDS: Nicotine Polacrilex Lozenge 2 MG LOZENGE BUCCAL ×5 (09:01→20:04)
[2023-06-12] MEDS: Nicotine 21 MG PATCH.TD24 TRANSDERMA (09:02)
--- NOTE | 2023-06-12 09:31 | P.PNPSI_ITS ---
Subjective Subjective Date of Service: 06/12/23 Reason For Visit: Major depressive disorder, recurrent, severe Subjective Notes: Conditional Voluntary Interim History: Reviewed with . Irritable. guarded. Met with pt with social work instructor (Jenna) present in unit office. Pt was informed of various referrals that have been made to programs and wait lists; pt informed of plan to discharge to group home until bed is available at one of the referred programs. Pt became upset, stood up and stated, thanks for nothing , then left office. Medication Compliance: Yes Side effects from medications: No Attending Groups: No Review of Systems Constitutional: Reports as per HPI Eyes: Reports as per HPI Reports as per HPI Cardiovascular: Reports as per HPI Respiratory: Reports as per HPI Gastrointestinal: Reports as per HPI Genitourinary: Reports as per HPI Musculoskeletal: Reports as per HPI Skin/Breast: Reports as per HPI Reports as per HPI Psychiatric: Reports as per HPI Endocrine: Reports as per HPI Hematologic/Lymphatic: Reports as per HPI Allergic/Immunologic: Reports as per HPI Mental Status Exam Mental Status Exam Narrative: Pt is alert and oriented; behavior is irritable,guarded; dressed in casual attire; eye contact appropriate; thought process is organized; Thought content is on discharge; otherwise pertinent to relevant topics and without any delusional content, paranoid ideations or grandiosity. Diagnostics Vital Signs (24Hr): Vital Signs - 24 hr 06/11/23 10:08 06/11/23 19:45 Temperature 97.2 F 97.8 F Pulse Rate 86 72 Respiratory Rate 20 Blood Pressure 136/87 132/72 Pulse Oximetry 97 98 Oxygen Delivery Method Room Air Room Air BMI result Body Mass Index 53.5 Labs 06/04/23 14:40 06/04/23 14:40 Medications Medications Current Medications Acetaminophen (Acetaminophen 325 Mg Tablet) 650 mg PO Q6H PRN PRN Reason: Headache/Pain Mild Scale (1-3) Al Hydroxide/Mg Hydroxide (Magnesium Hydrox/Alum Hydrox 30 Ml Oral.Susp) 30 ml PO Q6H PRN PRN Reason: Heartburn/Nausea Albuterol Sulfate (Albuterol Sulfate 90 Mcg 8 Gm Inhaler) 1 puff INHALE RQ6H PRN PRN Reason: bronchospasm Bupropion HCl (Bupropion Hcl Xl 300 Mg Tab.Er.24h) 300 mg PO DAILY [facility] Last Admin: 06/12/23 09:00 Dose: 300 mg Fluoxetine HCl (Fluoxetine Hcl Oral Solution 20 Mg/5 Ml Solution) 10 mg PO DAILY [facility] Last Admin: 06/11/23 08:33 Dose: 10 mg Gabapentin (Gabapentin 300 Mg Capsule) 600 mg PO TID [facility] Last Admin: 06/12/23 09:01 Dose: 600 mg Hydroxyzine HCl (Hydroxyzine Hcl 25 Mg Tablet) 25 mg PO Q6H PRN PRN Reason: Anxiety Magnesium Hydroxide (Milk Of Magnesia 30 Ml Oral.Susp) 30 ml PO DAILY PRN PRN Reason: Constipation Melatonin (Melatonin 3 Mg Tablet) 6 mg PO BEDTIME [facility] Last Admin: 06/11/23 20:07 Dose: 6 mg Methadone HCl (Methadone Hcl 20 Mg/2 Ml Oral.Conc) 70 mg PO DAILY [facility] Last Admin: 06/11/23 08:32 Dose: 70 mg Nicotine (Nicotine 21 Mg Patch.Td24) 21 mg TRANSDERMA DAILY [facility] Last Admin: 06/12/23 09:02 Dose: 21 mg Nicotine Polacrilex (Nicotine Polacrilex Lozenge 2 Mg Lozenge) 2 mg BUCCAL Q2H PRN PRN Reason: Nicotine Cravings Last Admin: 06/12/23 09:01 Dose: 2 mg Prazosin HCl (Prazosin Hcl 1 Mg Capsule) 4 mg PO BEDTIME [facility]; Protocol Last Admin: 06/11/23 20:06 Dose: 4 mg Quetiapine Fumarate (Quetiapine Fumarate 50 Mg Tablet) 250 mg PO BEDTIME [facility] Last Admin: 06/11/23 20:05 Dose: 250 mg Sodium Chloride (Sodium Chloride 0.65 % Nasal 44 Ml Sprbtl) 1 spray NOSTRIL-B Q1H PRN PRN Reason: Dry Nasal Passages Allergies Allergies Allergy/AdvReac Type Severity Reaction Status Date / Time ibuprofen [IBUPROFEN] Allergy Unknown RASH Verified 04/04/22 13:22 henderson peppers Allergy Hives Uncoded 08/23/22 14:47 Assessment & Plan Assessment & Plan (1) MDD (major depressive disorder), recurrent severe, without psychosis: Status: Acute Code(s): F33.2 - Major depressive disorder, recurrent severe without psychotic features (2) PTSD (post-traumatic stress disorder): Status: Acute Code(s): F43.10 - Post-traumatic stress disorder, unspecified (3) Opioid dependence: Status: Acute Code(s): F11.20 - Opioid dependence, uncomplicated (4) Cocaine use disorder: Status: Acute Code(s): F14.10 - Cocaine abuse, uncomplicated Plan Patient is a 47 year old male with hx of MDD, PTSD, cocaine abuse and opioid abuse who self presented to ER d/t suicidal ideation secondary to increased depressive symptoms. Plan: CV 15 minute safety checks Continue home medications Referral to outpatient therapist and prescriber Referral to substance abuse program Labs to be drawn in AM. 06/04: Isolative. tearful. pt reports feeling depressed ; pt stated, I'm thinking about everything. I just don't know how to handle it and how I'm supposed to bury my daughter . Pt reports he continues to have suicidal ideation. He is requesting a substance abuse program to maintain sobriety. Continue current tx plan. 06/05: Active on unit, social with peers. irritable. Pt reports he is grieving the loss of my daughter ; pt stated, I know I need to go to a substance abuse program because if I don't I will relapse. I don't want the [facility] because I know where to get high there. I'll go 06/07/23: Continue current regimen and plansnywhere. I don't want to do this to my other daughter . Pt reports he plans on contacting [facility] in the [facility] and plans on talking to his assistant softball coach to obtain a ride to a substance abuse program. denies SI/HI/VH/AH. Increase Wellbutrin XL to 300mg PO daily DC topamax per pt request Increase Seroquel to 250mg PO bedtime 06/06: irritable. Pt stated, I'm frustrated because I can't find a substance abuse program and I'm pissed that my daughter is taken away from me . Pt reports his assistant softball coach is trying to find somewhere for me to go . He reports sleeping well, no medications side effects. denies SI/HI/VH/AH. continue current tx plan 06/07/23: Continue current regimen and plans 06/08/2023: Continue current regimen and plans. Increase gabapentin to 600 mg t.i.d. and decrease Seroquel to 25 mg b.i.d. p.r.n. 06/09: Irritable, yelling. brief in interaction today. Met with pt in unit office. T/W discussed discharge planning, possible DC [facility] or group home this week. Pt stated, I don't want to go to the [facility] or a fucking group home! ; pt got up from chair, slammed office door. Staff informed T/W, pt began yelling at social work instructor regarding placement and throwing papers around. Continue current tx plan. 06/10: Irritable. brief in interaction. Met with pt in unit office. Pt reports he is working on getting into a program . T/W discussed discharge planning with pt; pt stated, I don't want to deal with the social work instructor. I'm going to leave Friday and go use drugs . Continue to report he does not want to go to the [facility] or group home. Continue current tx plan. 06/11: Irritable. guarded. observed reading in room. pt reports feeling anxious today; pt stated, I don't know where I'm going to go after here. I'm guessing the [facility] or respite. I'm going to use . denies SI/HI/VH/AH. Plan to discharge Friday. 06/12: Irritable. guarded. Met with pt with social work instructor (Jenna) present in unit office. Pt was informed of various referrals that have been made to programs and wait lists; pt informed of plan to discharge to group home until bed is available at one of the referred programs. Pt became upset, stood up and stated, thanks for nothing , then left office. Patient educated on: diagnosis, medication risk/benefits and substance abuse Informed Consent: understands Reason for continued inpatient stay Substantial Risk for: stable for discharge Time Spent With Patient Time: Total time managing care of this patient today _20___ minutes.
[2023-06-12] MEDS: methADONE HCl 20 MG/2 ML ORAL.CONC 70 MG PO (09:40)
[2023-06-12] MEDS: FLUoxetine HCl 10 MG CAPSULE PO (10:22)
[2023-06-12] MEDS: hydrOXYzine HCL 25 MG TABLET PO (12:01)
[2023-06-12 20:00] VITALS: BP 132/86; PULSE 69; RESP 18; TEMP 36.8; O2SAT 97
[2023-06-12] MEDS: Prazosin HCL 1 MG CAPSULE 4 MG PO (20:01)
[2023-06-12] MEDS: QUEtiapine Fumarate 50 MG TABLET 250 MG PO (20:02)
[2023-06-12] MEDS: Melatonin 3 MG TABLET 6 MG PO (20:03)
[2023-06-13 08:25] VITALS: BP 125/79; PULSE 62; RESP 16; TEMP 36.2; O2SAT 97
[2023-06-13] MEDS: FLUoxetine HCl 10 MG CAPSULE PO (09:04)
[2023-06-13] MEDS: Gabapentin 300 MG CAPSULE 600 MG PO (09:05)
[2023-06-13] MEDS: buPROPion HCl XL 300 MG TAB.ER.24H PO (09:05)
[2023-06-13] MEDS: methADONE HCl 20 MG/2 ML ORAL.CONC 70 MG PO (09:06)
[2023-06-13] MEDS: Nicotine Polacrilex Lozenge 2 MG LOZENGE BUCCAL ×2 (09:08→11:17)
--- NOTE | 2023-06-13 09:17 | P.DS_ITS ---
DS: Providers Provider Date of Service: 06/13/23 Date of admission: 06/02/23 22:37 Date of discharge: 06/13/23 Primary care physician: Roel Physician Admitting clinician: Ramya Horn Attending physician on admission: Compa Hawkins Consults: 06/02/23 23:15 Consult to Hospitalist Routine Comment: Consulting Provider: Hospitalist Reason For Exam: Direct admission Attending physician on discharge: Saleem Rodriguez Discharging clinician: Ramya Horn DS: Diagnosis Discharge Diagnosis (1) MDD (major depressive disorder), recurrent severe, without psychosis: Status: Acute (2) PTSD (post-traumatic stress disorder): Status: Acute (3) Opioid dependence: Status: Acute (4) Cocaine use disorder: Status: Acute DS: Medications Discharge Medications Home Medications: Home Medications Medication Instructions Recorded Confirmed methadone 10 mg/5 mL oral solution 70 mg PO DAILY 04/02/23 06/03/23 Previous Rx's Medication Instructions Recorded albuterol sulfate 90 mcg/actuation 2 puff inhalation QID PRN Wheezing 04/11/23 aerosol inhaler 30 days #8.5 grams bupropion HCl 300 mg 24 hr tablet, 300 mg PO DAILY 30 days #30 tabs 06/12/23 extended release fluoxetine 10 mg capsule 10 mg PO DAILY 30 days #30 caps 06/12/23 gabapentin 600 mg tablet 600 mg PO TID 30 days #90 tabs 06/12/23 melatonin 3 mg tablet 6 mg (2 x 3 mg) PO BEDTIME 30 days 06/12/23 #60 tabs prazosin 2 mg capsule 4 mg (2 x 2 mg) PO BEDTIME 30 days 06/12/23 #60 caps quetiapine 200 mg tablet 200 mg PO BEDTIME 30 days #30 tabs 06/12/23 Mental Status Exam Mental Status Exam Narrative: Pt is alert and oriented; behavior is cooperative and calm; dressed in casual attire; mood is described as fine ; eye contact appropriate; Speech is normal rate, volume and prosody and not pressured; thought process is organized; Thought content is on tx; otherwise pertinent to relevant topics and without any delusional content, paranoid ideations or grandiosity; denies SI/HI/VH/AH. DS: Summary Hospital Course Hospital Course: Patient is a 47 year old male with hx of MDD, PTSD, cocaine abuse and opioid abuse who self presented to ER d/t suicidal ideation secondary to increased depressive symptoms. Per crisis report, pt reported taking a handful of Ativan . He reports losing his sister and daughter in a car accident. Pt expressed plans to OD d/t depression. He reports regular use of IV heroin and cocaine use; he is aware of having Hep C. Patient reports he has not been medication compliant for the past 3 weeks. denies any ETOH use. During admission assessment, pt presents calm and cooperative. Pt stated, I went into a program at [facility] before ; when I got out I found out my sister from COVID in the hospital. Three days later, my daughter, Joann in a car accident in [place]. julio is the anniversary of finding my father hanging. I lost it, relapsed and stopped taking my meds. The only reason I want to stick around is my other daughter who is 13 . Patient reports suicidal ideation with plan to hang myself like my father . He reports wanting to be started back on his medications and referred to a substance abuse program. denies HI/VH/AH. Pt reports prior to going into program at [facility], he was residing at [facility]; his plan was to return living with his ex- girlfriend once discharged from [facility] but relapsed. Methadone dose verified by nursing. During hospital course, Patient is a 47 year old male with hx of MDD, PTSD, cocaine abuse and opioid abuse who self presented to ER d/t suicidal ideation secondary to increased depressive symptoms. Plan: CV 15 minute safety checks Continue home medications Isolative. tearful. pt reports feeling depressed ; pt stated, I'm thinking about everything. I just don't know how to handle it and how I'm supposed to bury my daughter . Pt reports he continues to have suicidal ideation. He is re questing a substance abuse program to maintain sobriety. Active on unit, social with peers. irritable. Pt reports he is grieving the loss of my daughter ; pt stated, I know I need to go to a substance abuse program because if I don't I will relapse. I don't want the [facility] because I know where to get high there. I don't want to do this to my other daughter . Pt reports he plans on contacting [facility] in the [facility] and plans on talking to his math coach to obtain a ride to a substance abuse program. denies SI/HI/VH/AH. Increase Wellbutrin XL to 300mg PO daily DC topamax per pt request Increase Seroquel to 250mg PO bedtime irritable. Pt stated, I'm frustrated because I can't find a substance abuse program and I'm pissed that my daughter is taken away from me . Pt reports his math coach is trying to find somewhere for me to go . He reports sleeping well, no medications side effects. denies SI/HI/VH/AH. Increase gabapentin to 600 mg t.i.d. and decrease Seroquel to 25 mg b.i.d. p.r.n. Irritable, yelling. brief in interaction today. Met with pt in unit office. T/W discussed discharge planning, possible DC to [facility] or senior living this week. Pt stated, I don't want to go to [facility] or a fucking senior living! ; pt got up from chair, slammed office door. Staff informed T/W, pt began yelling at social insurance analyst regarding placement and throwing papers around. Irritable. brief in interaction. Met with pt in unit office. Pt reports he is working on getting into a program . T/W discussed discharge planning with pt; pt stated, I don't want to deal with the social insurance analyst. I'm going to leave Friday and go use drugs . Continue to report he does not want to go to the [facility] or senior living. Irritable. guarded. observed reading in room. pt reports feeling anxious today; pt stated, I don't know where I'm going to go after here. I'm guessing the [facility] or respite. I'm going to use . denies SI/HI/VH/AH. Met with pt with social insurance analyst (Jenna) present in unit office. Pt was informed of various referrals that have been made to programs and wait lists; pt informed of plan to discharge to senior living until bed is available at one of the referred programs. Pt became upset, stood up and stated, thanks for nothing , then left office. denies SI/HI/VH/AH. Pt informed RN that he would be getting picked up by his [employer] embedded case manager; he did not disclose where he was going after being discharged. Time spent discussing smoking cessation with patient: 3 to 10 minutes Status at Discharge Cognitive/behavioral status at discharge: Patient was interviewed prior to discharge and found to be fully oriented and without any SI or HI. Patient is not in imminent risk of harm to self or others and has a safety plan that includes presenting to the closest ER or calling 911 if feeling unsafe. Functional status at discharge: independent ambulation Overall status at discharge: patient is back to baseline Time Spent with Patient Time attestation: Total time managing care of this patient today _30___ minutes. Time spent: Less than 30 minutes Discharge Plan Discharge Anticipated Discharge Date/Time: 06/13/23 12:00 Patient Disposition: Prison Discharge Diagnosis: MDD, PTSD, ETOH abuse, Cocaine use d/o, Opioid use d/o Referrals: Therapy & Psychiatry [Other] - 1 Week (Please present to the [facility] Tuesdays or between the hours of 9am and 12pm as a walk in to obtain outpatient providers) [facility] [Provider Group] - 1 Week Discharge Medications: New prazosin 2 mg capsule 4 mg PO BEDTIME 30 Days Qty: 60 0RF bupropion HCl 300 mg Tablet Extended Release 24 Hr 300 mg PO DAILY 30 Days Qty: 30 0RF melatonin 3 mg Tablet 6 mg PO BEDTIME 30 Days Qty: 60 0RF fluoxetine 10 mg Capsule 10 mg PO DAILY 30 Days Qty: 30 0RF gabapentin 600 mg tablet 600 mg PO TID 30 Days Qty: 90 0RF Continued methadone 10 mg/5 mL Solution 70 mg PO DAILY albuterol sulfate 90 mcg/actuation Hfa Aerosol Inhaler 2 puff INHALATION QID PRN (Reason: Wheezing) 30 Days Qty: 8.5 1RF Patient Comments: uses for COPD quetiapine 200 mg tablet 200 mg PO BEDTIME 30 Days Qty: 30 0RF Discontinued nicotine 21 mg/24 hr Patch 24 Hour 21 mg transdermal DAILY PRN (Reason: nicotine cravings) 28 Days Qty: 28 1RF fluoxetine 10 mg Capsule 10 mg PO DAILY 30 Days Qty: 30 1RF quetiapine 50 mg Tablet 50 mg PO BID PRN (Reason: daytime anxiety or insomnia) 30 Days Qty: 60 1RF folic acid 1 mg Tablet 1 mg PO DAILY 30 Days Qty: 30 0RF multivitamin [Daily-Bassam] Tablet 1 tab PO DAILY 30 Days Qty: 30 0RF thiamine mononitrate (vit B1) 100 mg Tablet 100 mg PO DAILY 30 Days Qty: 30 0RF acetaminophen 325 mg Tablet 650 mg PO Q6H PRN (Reason: Headache/Pain Mild Scale (1-3)) Qty: 0 0RF gabapentin 400 mg capsule 400 mg PO TID topiramate 25 mg tablet 25 mg PO BEDTIME fluoxetine 20 mg capsule 20 mg PO DAILY prazosin 2 mg capsule 4 mg PO BEDTIME bupropion HCl 150 mg tablet extended release 24 hr 300 mg PO DAILY melatonin 5 mg tablet 6 mg PO buspirone [BuSpar] 15 mg Tablet 15 mg PO TID Discharge Orders: Discharge Order (Routine); Ordered 06/13/23 Ordered By: Ramya Horn Diet: Regular diet Activity on Discharge: As tolerated Stand Alone Forms: Patient Portal Discharge page, Community Support Care Plan Goals: Maintain mood and safe behaviors Take medications as prescribed Continue to pursue sobriety Practice coping skills Continue with outpatient providers and reach out to them as needed Health Concerns: Mood stability and behaviors Sobriety Plan of Treatment: Follow up with your PCP, psychiatric provider and other outpatient providers regarding above concerns Take medications as prescribed Assessment: Patient has a safety plan that includes presenting to the closest ER or calling 911 if feeling unsafe. Discharge Date/Time: 06/13/23 11:50
[2023-06-13] MEDS: Naloxone HCl Nasal TAKE HOME 4 MG SPRAY 8 MG NOSTRILALT (10:45)
== END 2023-06-13 11:50 | disposition home or self-care (01) | DRG 885 ==
PROVIDERS: Admitting Provider Psychiatry & Neurology Psychiatry; Responsible Provider Registered Nurse; Visit Provider Psychiatry & Neurology Psychiatry
DX: F33.2 Major depressive disorder, recurrent severe without psychotic features (principal); R45.851 Suicidal ideations; F11.20 Opioid dependence, uncomplicated; Z59.02 Unsheltered homelessness; F10.10 Alcohol abuse, uncomplicated; B19.20 Unspecified viral hepatitis C without hepatic coma; F17.210 Nicotine dependence, cigarettes, uncomplicated; Z71.6 Tobacco abuse counseling; F43.10 Post-traumatic stress disorder, unspecified; F14.10 Cocaine abuse, uncomplicated; Z91.148 Patient's other noncompliance with medication regimen for other reason; Z79.899 Other long term (current) drug therapy
CPT/HCPCS: 36415; 80048; 80076; 82140; 84443; 85025

== ENCOUNTER → 2023-06-02 22:37 | Outpatient (BNV) | payer OTHER, SELFPAY | PROVIDERS: Admitting Provider Psychiatry & Neurology Psychiatry; Responsible Provider Registered Nurse; Visit Provider Registered Nurse | DX: F33.2 Major depressive disorder, recurrent severe without psychotic features (principal); F14.10 Cocaine abuse, uncomplicated; F11.20 Opioid dependence, uncomplicated; F43.11 Post-traumatic stress disorder, acute | CPT/HCPCS: 90792; 99231; 99232; 99238 ==

== ENCOUNTER → 2023-06-02 22:37 | Outpatient (BNV) | payer OTHER, SELFPAY | PROVIDERS: Admitting Provider Psychiatry & Neurology Psychiatry; Responsible Provider Registered Nurse; Visit Provider Internal Medicine | DX: B19.20 Unspecified viral hepatitis C without hepatic coma (principal); F11.20 Opioid dependence, uncomplicated | CPT/HCPCS: 99221 ==

== ENCOUNTER 2023-08-21 15:31 | Inpatient (IN) | payer OTHER, SELFPAY ==
[2023-08-21 16:54] VITALS: PULSE 62
--- NOTE | 2023-08-21 17:31 | PC.NURSE ---
Max was admitted to at 1549 on a CV from [facility] after reporting SI with a plan to jump off a bridge. While at the bridge Max slipped and fell fracturing his L arm. He is currently in a soft cast to the elbow. Skin assessment showed bruising to his R knee and some scars from old injuries. Skin is intact. Max denies any current SI but reports he is feeling hopeless as he keeps going through these programs and then something goes wrong and I can't get my medications . Max reports he was recently in [facility] where he was discharged 08/11. After discharge Max relapsed on heroin and cocaine and then experienced SI and was brought to [facility]. [facility] has been giving Max 30mg Methadone PO daily but he reports he has been on 70mg's for a long time . This filing writer called [facility] and spoke with RN Tatiana Bae who verified Max was given 70mg Methadone on 08/12/2023. Max was using [facility] before this hospitalization. Max reports he has not had more then a couple weeks out of a program in over a year. Denies alcohol use. COWS 6 and all of this information relayed to on-call provider.
[2023-08-21] MEDS: FLUoxetine HCl 20 MG CAPSULE PO (18:16)
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
[2023-08-21] MEDS: Gabapentin 400 MG CAPSULE 800 MG PO (20:52)
[2023-08-21] MEDS: Melatonin 3 MG TABLET 9 MG PO (20:52)
[2023-08-21] MEDS: hydrOXYzine HCL 25 MG TABLET PO (20:52)
[2023-08-22] MEDS: methADONE HCl 20 MG/2 ML ORAL.CONC 30 MG PO (08:11)
[2023-08-22] MEDS: Gabapentin 400 MG CAPSULE 800 MG PO ×3 (08:11→19:55)
[2023-08-22] MEDS: FLUoxetine HCl 20 MG CAPSULE PO (08:11)
[2023-08-22 09:00] VITALS: BP 145/80; PULSE 60; RESP 18; TEMP 36.5; O2SAT 100
[2023-08-22] MEDS: busPIRone HCl 5 MG TABLET 15 MG PO ×3 (09:09→19:54)
[2023-08-22] MEDS: buPROPion HCl XL 150 MG TAB.ER.24H 450 MG PO (09:09)
[2023-08-22 09:27] LABS: Estimated Average Glucose 111 mg/dL; Hemoglobin A1c % 5.5 % (<6.0)
[2023-08-22 09:29] LABS: Cholesterol 186 mg/dL (<200); HDL Cholesterol 32 mg/dL (>40); LDL Cholesterol Calculated 79 mg/dL (<100); Magnesium 1.7 mg/dL (1.6-2.6); Triglycerides 375 mg/dL (<150)
[2023-08-22 09:48] LABS: Free T4 (Free Thyroxine) 1.02 ng/dL (0.71-1.85); Thyroid Stimulating Hormone 1.81 uIU/mL (0.32-4.0)
[2023-08-22] MEDS: Nicotine Polacrilex 2 MG GUM 4 MG BUCCAL ×3 (10:04→19:54)
[2023-08-22 10:59] LABS: Folate 9.5 ng/mL (> or = 4.0); Vitamin B12 471 pg/mL (200-900)
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
[2023-08-22 18:00] VITALS: BP 138/81; PULSE 71; RESP 18; TEMP 36.6; O2SAT 100
[2023-08-22] MEDS: Acetaminophen 325 MG TABLET 650 MG PO (19:54)
[2023-08-22] MEDS: Melatonin 3 MG TABLET 9 MG PO (19:55)
[2023-08-22] MEDS: QUEtiapine Fumarate 300 MG TABLET PO (19:55)
[2023-08-23] MEDS: Gabapentin 400 MG CAPSULE 800 MG PO ×3 (08:31→19:53)
[2023-08-23] MEDS: methADONE HCl 20 MG/2 ML ORAL.CONC 30 MG PO (08:31)
[2023-08-23] MEDS: FLUoxetine HCl 20 MG CAPSULE PO (08:31)
[2023-08-23] MEDS: buPROPion HCl XL 150 MG TAB.ER.24H 450 MG PO (08:31)
[2023-08-23] MEDS: busPIRone HCl 5 MG TABLET 15 MG PO ×3 (08:31→19:55)
[2023-08-23 08:39] VITALS: BP 136/60; PULSE 66; RESP 16; TEMP 36.4; O2SAT 99
[2023-08-23] MEDS: Nicotine Polacrilex 2 MG GUM 4 MG BUCCAL ×2 (09:42→14:39)
--- NOTE | 2023-08-23 12:36 | P.PNPSI_ITS ---
Subjective Subjective Date of Service: 08/23/23 Reason For Visit: SI R Wrist Pain Swelling Subjective Notes: Conditional Voluntary Interim History: 47 yo with hx severe etoh use- was suicidal when intoxicated and wanted to jump off bridge but ended up with broken arm- here reporting all ok He denies further si at this time. He denies current depression/anxiety or alcohol cravings. Seems to have sealed over and seems in a bit denial of how serious his situation became. No s/e ot medications reported. Slept ok Medication Compliance: Yes Side effects from medications: No Attending Groups: Yes Review of Systems Acute medical concerns: No Medical Review of Systems: unchanged Review of Systems: healing casted broken arm Mental Status Exam Mental Status Exam Patient Appearance: Appropriate Patient Orientation: Person, Place, Time and Situation Level of Consciousness: Awake Patient Behavior: Appropriate and Cooperative Behavior Comments: doesn't have any complaint! Mood Description: Calm Affect Description: Calm Patient Cognition Impaired: No Ability to Follow Directions: Good Speech Pattern: Clear Hallucinations: None Delusions: Not Present Thought Process: Intact and Goal Oriented Thought Content: positive for Intact (? possible minimization of occurrence/event bringing him here- or avoiding this provider involvement) Judgement: Fair Diagnostics Vital Signs (24Hr): Vital Signs - 24 hr 08/22/23 18:00 08/23/23 08:39 Temperature 97.8 F 97.6 F Pulse Rate 71 66 Respiratory Rate 18 16 Blood Pressure 138/81 136/60 Pulse Oximetry 100 99 Oxygen Delivery Method Room Air Room Air Labs Labs: Laboratory Results - last 48 hr 08/22/23 08/22/23 08:44 08:45 Estimat Average Glucose 111 Hemoglobin A1c % 5.5 Magnesium 1.7 Triglycerides 375 H Cholesterol 186 LDL Cholesterol, Calc 79 HDL Cholesterol 32 L Vitamin B12 471 Folate 9.5 TSH 1.81 Free T4 1.02 Medications Medications Current Medications Acetaminophen (Acetaminophen 325 Mg Tablet) 650 mg PO Q6H PRN PRN Reason: Headache/Pain Mild Scale (1-3) Last Admin: 08/22/23 19:54 Dose: 650 mg Al Hydroxide/Mg Hydroxide (Magnesium Hydrox/Alum Hydrox 30 Ml Oral.Susp) 30 ml PO Q6H PRN PRN Reason: Heartburn/Nausea Bupropion HCl (Bupropion Hcl Xl 150 Mg Tab.Er.24h) 450 mg PO DAILY [facility] Last Admin: 08/23/23 08:31 Dose: 450 mg Buspirone HCl (Buspirone Hcl 5 Mg Tablet) 15 mg PO TID [facility] Last Admin: 08/23/23 08:31 Dose: 15 mg Fluoxetine HCl (Fluoxetine Hcl 20 Mg Capsule) 20 mg PO DAILY [facility] Last Admin: 08/23/23 08:31 Dose: 20 mg Gabapentin (Gabapentin 400 Mg Capsule) 800 mg PO TID [facility] Last Admin: 08/23/23 08:31 Dose: 800 mg Hydroxyzine HCl (Hydroxyzine Hcl 50 Mg Tablet) 50 mg PO Q6H PRN PRN Reason: Anxiety Magnesium Hydroxide (Milk Of Magnesia 30 Ml Oral.Susp) 30 ml PO DAILY PRN PRN Reason: Constipation Melatonin (Melatonin 3 Mg Tablet) 9 mg PO BEDTIME PRN PRN Reason: insomnia Last Admin: 08/22/23 19:55 Dose: 9 mg Methadone HCl (Methadone Hcl 20 Mg/2 Ml Oral.Conc) 30 mg PO DAILY [facility] Last Admin: 08/23/23 08:31 Dose: 30 mg Nicotine Polacrilex (Nicotine Polacrilex 2 Mg Gum) 4 mg BUCCAL Q2H PRN PRN Reason: Nicotine Cravings Last Admin: 08/23/23 09:42 Dose: 4 mg Quetiapine Fumarate (Quetiapine Fumarate 300 Mg Tablet) 300 mg PO BEDTIME [facility] Last Admin: 08/22/23 19:55 Dose: 300 mg Trazodone HCl (Trazodone Hcl 50 Mg Tablet) 50 mg PO BEDTIME MRX1 PRN PRN Reason: Insomnia Allergies Allergies Allergy/AdvReac Type Severity Reaction Status Date / Time ibuprofen [IBUPROFEN] Allergy Unknown RASH Verified 04/04/22 13:22 henderson peppers Allergy Hives Uncoded 08/23/22 14:47 Assessment & Plan Assessment & Plan (1) PTSD (post-traumatic stress disorder): Status: Acute Code(s): F43.10 - Post-traumatic stress disorder, unspecified (2) MDD (major depressive disorder), recurrent severe, without psychosis: Status: Acute Code(s): F33.2 - Major depressive disorder, recurrent severe without psychotic features (3) Cocaine use disorder: Status: Acute Code(s): F14.10 - Cocaine abuse, uncomplicated (4) Opioid dependence: Status: Acute Code(s): F11.20 - Opioid dependence, uncomplicated (5) Alcohol dependence: Status: Acute Code(s): F10.20 - Alcohol dependence, uncomplicated Plan 47 yo male, history of PTSD, Depression, possibly bipolar disorder, alcohol and substance use seen in transfer from [facility] after found with intent to suicide via jumping from a bridge. Pt reports he slipped, fell and fractured his arm. Reports a recent discharge from [facility] who did not give him refills of medications. He reports he had no way of getting medications refilled thus his relapse and attempt. Other stressors include of daughter 05/18/23 in a drunk driving MVA and sister 05/22/23 from COVID. Plan: Pt has filed a three day notice of intent Re-establish regime Aftercare planning 08/23/23 - patient seems to minimize this event and seriousness of his substance use and how it is putting him at risk - otherwise CTP Patient educated on: substance abuse Informed Consent: further education needed Reason for continued inpatient stay Substantial Risk for: harm to self and rapid decompensation Time Spent With Patient Time: Total time managing care of this patient today ____ minutes.
[2023-08-23 16:53] VITALS: BP 127/72; PULSE 70; RESP 16; TEMP 36.2; O2SAT 97
[2023-08-23] MEDS: Melatonin 3 MG TABLET 9 MG PO (19:54)
[2023-08-23] MEDS: Acetaminophen 325 MG TABLET 650 MG PO (19:56)
[2023-08-23] MEDS: QUEtiapine Fumarate 300 MG TABLET PO (19:56)
[2023-08-24] MEDS: methADONE HCl 20 MG/2 ML ORAL.CONC 30 MG PO (08:26)
[2023-08-24] MEDS: Gabapentin 400 MG CAPSULE 800 MG PO ×3 (08:27→19:45)
[2023-08-24] MEDS: buPROPion HCl XL 150 MG TAB.ER.24H 450 MG PO (08:27)
[2023-08-24] MEDS: Nicotine Polacrilex 2 MG GUM 4 MG BUCCAL ×3 (08:27→19:46)
[2023-08-24] MEDS: FLUoxetine HCl 20 MG CAPSULE PO (08:27)
[2023-08-24] MEDS: busPIRone HCl 5 MG TABLET 15 MG PO ×3 (08:27→19:46)
[2023-08-24 08:39] VITALS: BP 129/85; PULSE 62; RESP 18; TEMP 36.4; O2SAT 99
[2023-08-24] MEDS: Acetaminophen 325 MG TABLET 650 MG PO ×2 (10:02→19:46)
[2023-08-24] MEDS: Nicotine 21 MG PATCH.TD24 TRANSDERMA (10:18)
--- NOTE | 2023-08-24 12:47 | P.PNPSI_ITS ---
Subjective Subjective Date of Service: 08/24/23 Reason For Visit: SI R Wrist Pain Swelling Subjective Notes: Conditional Voluntary Interim History: 47 yo DWM reports really feeling like he might make things work with ex due to 13 yo daughter- and wanting to be there for her- Realizes he has to go back to , has a sponsor who has been sober for many years he will work with again- and says he will fu with therapy and medication- Relieved his suicide attempt did not work and that he only got broken arm- Unclear how accurate this information but seemed to be more willing to disclose what he was thinking today with provider. When asked what happened last time he says - went off his meds and relapsed- Medication Compliance: Yes Side effects from medications: No Attending Groups: Yes Review of Systems Acute medical concerns: No Medical Review of Systems: unchanged Mental Status Exam Mental Status Exam Patient Appearance: Appropriate Patient Orientation: Person, Place, Time and Situation Level of Consciousness: Awake Patient Behavior: Appropriate, Cooperative and Good Eye Contact Behavior Comments: more forthcoming today - though seems more hopeful than circumstance may be Mood Description: Calm Affect Description: Appropriate Patient Cognition Impaired: No Ability to Follow Directions: Good Speech Pattern: Clear Hallucinations: None Delusions: Not Present Thought Process: Intact and Goal Oriented Thought Content: positive for Intact (future oriented) Judgement: Fair Diagnostics Vital Signs (24Hr): Vital Signs - 24 hr 08/23/23 16:53 08/24/23 08:39 Temperature 97.1 F 97.6 F Pulse Rate 70 62 Respiratory Rate 16 18 Blood Pressure 127/72 129/85 Pulse Oximetry 97 99 Oxygen Delivery Method Room Air Room Air Medications Medications Current Medications Acetaminophen (Acetaminophen 325 Mg Tablet) 650 mg PO Q6H PRN PRN Reason: Headache/Pain Mild Scale (1-3) Last Admin: 08/24/23 10:02 Dose: 650 mg Al Hydroxide/Mg Hydroxide (Magnesium Hydrox/Alum Hydrox 30 Ml Oral.Susp) 30 ml PO Q6H PRN PRN Reason: Heartburn/Nausea Bupropion HCl (Bupropion Hcl Xl 150 Mg Tab.Er.24h) 450 mg PO DAILY [facility] Last Admin: 08/24/23 08:27 Dose: 450 mg Buspirone HCl (Buspirone Hcl 5 Mg Tablet) 15 mg PO TID [facility] Last Admin: 08/24/23 08:27 Dose: 15 mg Fluoxetine HCl (Fluoxetine Hcl 20 Mg Capsule) 20 mg PO DAILY [facility] Last Admin: 08/24/23 08:27 Dose: 20 mg Gabapentin (Gabapentin 400 Mg Capsule) 800 mg PO TID [facility] Last Admin: 08/24/23 08:27 Dose: 800 mg Hydroxyzine HCl (Hydroxyzine Hcl 50 Mg Tablet) 50 mg PO Q6H PRN PRN Reason: Anxiety Magnesium Hydroxide (Milk Of Magnesia 30 Ml Oral.Susp) 30 ml PO DAILY PRN PRN Reason: Constipation Melatonin (Melatonin 3 Mg Tablet) 9 mg PO BEDTIME PRN PRN Reason: insomnia Last Admin: 08/23/23 19:54 Dose: 9 mg Methadone HCl (Methadone Hcl 20 Mg/2 Ml Oral.Conc) 30 mg PO DAILY [facility] Last Admin: 08/24/23 08:26 Dose: 30 mg Nicotine (Nicotine 21 Mg Patch.Td24) 21 mg TRANSDERMA DAILY [facility] Last Admin: 08/24/23 10:18 Dose: 21 mg Nicotine Polacrilex (Nicotine Polacrilex 2 Mg Gum) 4 mg BUCCAL Q2H PRN PRN Reason: Nicotine Cravings Last Admin: 08/24/23 08:27 Dose: 4 mg Quetiapine Fumarate (Quetiapine Fumarate 300 Mg Tablet) 300 mg PO BEDTIME [facility] Last Admin: 08/23/23 19:56 Dose: 300 mg Trazodone HCl (Trazodone Hcl 50 Mg Tablet) 50 mg PO BEDTIME MRX1 PRN PRN Reason: Insomnia Allergies Allergies Allergy/AdvReac Type Severity Reaction Status Date / Time ibuprofen [IBUPROFEN] Allergy Unknown RASH Verified 04/04/22 13:22 henderson peppers Allergy Hives Uncoded 08/23/22 14:47 Assessment & Plan Assessment & Plan (1) PTSD (post-traumatic stress disorder): Status: Acute Code(s): F43.10 - Post-traumatic stress disorder, unspecified (2) MDD (major depressive disorder), recurrent severe, without psychosis: Status: Acute Code(s): F33.2 - Major depressive disorder, recurrent severe without psychotic features (3) Cocaine use disorder: Status: Acute Code(s): F14.10 - Cocaine abuse, uncomplicated (4) Opioid dependence: Status: Acute Code(s): F11.20 - Opioid dependence, uncomplicated (5) Alcohol dependence: Status: Acute Code(s): F10.20 - Alcohol dependence, uncomplicated Plan 47 yo male, history of PTSD, Depression, possibly bipolar disorder, alcohol and substance use seen in transfer from [facility] after found with intent to suicide via jumping from a bridge. Pt reports he slipped, fell and fractured his arm. Reports a recent discharge from [facility] who did not give him refills of medications. He reports he had no way of getting medications refilled thus his relapse and attempt. Other stressors include of daughter 05/18/23 in a drunk driving MVA and sister 05/22/23 from COVID. Plan: Pt has filed a three day notice of intent Re-establish regime Aftercare planning 08/23/23 - patient seems to minimize this event and seriousness of his substance use and how it is putting him at risk - otherwise CTP 3.31.24 hoping to return to , continue meds and reconnect with ex - /daugther on dc Patient educated on: substance abuse and therapeutic strategies Informed Consent: understands and further education needed Reason for continued inpatient stay Substantial Risk for: harm to self and rapid decompensation Time Spent With Patient Time: Total time managing care of this patient today ____ minutes.
[2023-08-24 18:01] VITALS: BP 140/73; PULSE 97; RESP 18; TEMP 37.2; O2SAT 98
[2023-08-24] MEDS: Melatonin 3 MG TABLET 9 MG PO (19:45)
[2023-08-24] MEDS: QUEtiapine Fumarate 300 MG TABLET PO (19:46)
[2023-08-25] MEDS: Nicotine 21 MG PATCH.TD24 TRANSDERMA (08:25)
[2023-08-25] MEDS: methADONE HCl 20 MG/2 ML ORAL.CONC 30 MG PO (08:26)
[2023-08-25] MEDS: busPIRone HCl 5 MG TABLET 15 MG PO ×3 (08:27→19:59)
[2023-08-25] MEDS: buPROPion HCl XL 150 MG TAB.ER.24H 450 MG PO (08:28)
[2023-08-25] MEDS: FLUoxetine HCl 20 MG CAPSULE PO (08:28)
[2023-08-25] MEDS: Gabapentin 400 MG CAPSULE 800 MG PO ×3 (08:28→19:59)
[2023-08-25 08:30] VITALS: BP 132/76; PULSE 76; RESP 16; TEMP 37; O2SAT 96
[2023-08-25] MEDS: Acetaminophen 325 MG TABLET 650 MG PO ×2 (08:31→19:58)
[2023-08-25] MEDS: Nicotine Polacrilex 2 MG GUM 4 MG BUCCAL ×3 (08:32→19:59)
--- NOTE | 2023-08-25 15:43 | HO.PSYCHPN ---
Subjective Subjective Date of Service: 08/25/23 Reason For Visit: SI R Wrist Pain Swelling Subjective Notes: Conditional Voluntary Interim History: Reviewed with . Active on unit, social with peers. Pt reports feeling good today; pt stated, I'm getting ready to leave on Friday. My ex- and I are going to try our relationship again, so I'm going to go live with her in [place] . Pt denies SI/HI/VH/AH. Medication Compliance: Yes Side effects from medications: No Review of Systems Constitutional: Reports as per HPI Eyes: Reports as per HPI Reports as per HPI Cardiovascular: Reports as per HPI Respiratory: Reports as per HPI Gastrointestinal: Reports as per HPI Genitourinary: Reports as per HPI Musculoskeletal: Reports as per HPI Skin/Breast: Reports as per HPI Reports as per HPI Psychiatric: Reports as per HPI Endocrine: Reports as per HPI Hematologic/Lymphatic: Reports as per HPI Allergic/Immunologic: Reports as per HPI Mental Status Exam Mental Status Exam Narrative: Pt is alert and oriented; behavior is cooperative and calm; dressed in casual attire; mood is described as good ; eye contact appropriate; Speech is normal rate, volume and prosody and not pressured; thought process is organized and goal directed; Thought content is on tx; otherwise pertinent to relevant topics and without any delusional content, paranoid ideations or grandiosity; denies SI/HI/VH/AH. Diagnostics Vital Signs (24Hr): Vital Signs - 24 hr 08/24/23 18:01 08/25/23 08:30 Temperature 99.0 F 98.6 F Pulse Rate 97 76 Respiratory Rate 18 16 Blood Pressure 140/73 H 132/76 Pulse Oximetry 98 96 Oxygen Delivery Method Room Air Room Air Medications Medications Current Medications Acetaminophen (Acetaminophen 325 Mg Tablet) 650 mg PO Q6H PRN PRN Reason: Headache/Pain Mild Scale (1-3) Last Admin: 08/25/23 08:31 Dose: 650 mg Al Hydroxide/Mg Hydroxide (Magnesium Hydrox/Alum Hydrox 30 Ml Oral.Susp) 30 ml PO Q6H PRN PRN Reason: Heartburn/Nausea Bupropion HCl (Bupropion Hcl Xl 150 Mg Tab.Er.24h) 450 mg PO DAILY [facility] Last Admin: 08/25/23 08:28 Dose: 450 mg Buspirone HCl (Buspirone Hcl 5 Mg Tablet) 15 mg PO TID [facility] Last Admin: 08/25/23 14:08 Dose: 15 mg Fluoxetine HCl (Fluoxetine Hcl 20 Mg Capsule) 20 mg PO DAILY [facility] Last Admin: 08/25/23 08:28 Dose: 20 mg Gabapentin (Gabapentin 400 Mg Capsule) 800 mg PO TID [facility] Last Admin: 08/25/23 14:08 Dose: 800 mg Hydroxyzine HCl (Hydroxyzine Hcl 50 Mg Tablet) 50 mg PO Q6H PRN PRN Reason: Anxiety Magnesium Hydroxide (Milk Of Magnesia 30 Ml Oral.Susp) 30 ml PO DAILY PRN PRN Reason: Constipation Melatonin (Melatonin 3 Mg Tablet) 9 mg PO BEDTIME PRN PRN Reason: insomnia Last Admin: 08/24/23 19:45 Dose: 9 mg Methadone HCl (Methadone Hcl 20 Mg/2 Ml Oral.Conc) 30 mg PO DAILY [facility] Last Admin: 08/25/23 08:26 Dose: 30 mg Nicotine (Nicotine 21 Mg Patch.Td24) 21 mg TRANSDERMA DAILY [facility] Last Admin: 08/25/23 08:25 Dose: 21 mg Nicotine Polacrilex (Nicotine Polacrilex 2 Mg Gum) 4 mg BUCCAL Q2H PRN PRN Reason: Nicotine Cravings Last Admin: 08/25/23 14:08 Dose: 4 mg Quetiapine Fumarate (Quetiapine Fumarate 300 Mg Tablet) 300 mg PO BEDTIME [facility] Last Admin: 08/24/23 19:46 Dose: 300 mg Trazodone HCl (Trazodone Hcl 50 Mg Tablet) 50 mg PO BEDTIME MRX1 PRN PRN Reason: Insomnia Allergies Allergies Allergy/AdvReac Type Severity Reaction Status Date / Time ibuprofen [IBUPROFEN] Allergy Unknown RASH Verified 04/04/22 13:22 henderson peppers Allergy Hives Uncoded 08/23/22 14:47 Assessment & Plan Assessment & Plan (1) PTSD (post-traumatic stress disorder): Status: Acute Code(s): F43.10 - Post-traumatic stress disorder, unspecified (2) MDD (major depressive disorder), recurrent severe, without psychosis: Status: Acute Code(s): F33.2 - Major depressive disorder, recurrent severe without psychotic features (3) Cocaine use disorder: Status: Acute Code(s): F14.10 - Cocaine abuse, uncomplicated (4) Opioid dependence: Status: Acute Code(s): F11.20 - Opioid dependence, uncomplicated (5) Alcohol dependence: Status: Acute Code(s): F10.20 - Alcohol dependence, uncomplicated Plan 47 yo male, history of PTSD, Depression, possibly bipolar disorder, alcohol and substance use seen in transfer from [facility] after found with intent to suicide via jumping from a bridge. Pt reports he slipped, fell and fractured his arm. Reports a recent discharge from [facility] who did not give him refills of medications. He reports he had no way of getting medications refilled thus his relapse and attempt. Other stressors include of daughter 05/18/23 in a drunk driving MVA and sister 05/22/23 from COVID. Plan: Pt has filed a three day notice of intent Re-establish regime Aftercare planning 08/23/23 - patient seems to minimize this event and seriousness of his substance use and how it is putting him at risk - otherwise CTP 3.31.24 hoping to return to , continue meds and reconnect with ex - /daugther on dc 08/24: continue current tx plan. Patient educated on: diagnosis and medication risk/benefits Reason for continued inpatient stay Substantial Risk for: med/psych decompensation Time Spent With Patient Time: Total time managing care of this patient today _20___ minutes.
[2023-08-25 18:00] VITALS: BP 138/82; PULSE 84; RESP 16; TEMP 37.2; O2SAT 97
[2023-08-25] MEDS: Melatonin 3 MG TABLET 9 MG PO (19:58)
[2023-08-25] MEDS: QUEtiapine Fumarate 300 MG TABLET PO (19:59)
[2023-08-26 08:00] VITALS: BP 133/65; PULSE 75; RESP 18; TEMP 36.8; O2SAT 98
[2023-08-26] MEDS: Nicotine 21 MG PATCH.TD24 TRANSDERMA (08:20)
[2023-08-26] MEDS: Acetaminophen 325 MG TABLET 650 MG PO (08:21)
[2023-08-26] MEDS: methADONE HCl 20 MG/2 ML ORAL.CONC 30 MG PO (08:21)
[2023-08-26] MEDS: Gabapentin 400 MG CAPSULE 800 MG PO ×3 (08:22→20:16)
[2023-08-26] MEDS: Nicotine Polacrilex 2 MG GUM 4 MG BUCCAL ×2 (08:22→14:12)
[2023-08-26] MEDS: busPIRone HCl 5 MG TABLET 15 MG PO ×3 (08:22→20:16)
[2023-08-26] MEDS: FLUoxetine HCl 20 MG CAPSULE PO (08:22)
[2023-08-26] MEDS: buPROPion HCl XL 150 MG TAB.ER.24H 450 MG PO (08:23)
--- NOTE | 2023-08-26 11:33 | HO.PSYCHPN ---
Subjective Subjective Date of Service: 08/26/23 Reason For Visit: SI R Wrist Pain Swelling Subjective Notes: Conditional Voluntary and 3 Day Healthcare Proxy: No Guardianship: No Medical Problems Affecting Mental Status: No Interim History: Pt declined to meet today as he was napping. Authorized his pharmacy for prescriptions (an issue upon admission) and authorized follow up appt with [facility] for L wrist fracture. Call to [facility]. They took information and will call pt to schedule after they review [facility] ER ortho report. Given pt's new cell # [phone]. Medication Compliance: Yes Side effects from medications: No Attending Groups: Intermittent Review of Systems Acute medical concerns: No Medical Review of Systems: unchanged Review of Systems Review of Systems Yes all other systems are reviewed and are negative Mental Status Exam Mental Status Exam Patient Appearance: Fatigued Patient Orientation: Person, Place, Time and Situation Level of Consciousness: Lethargic Patient Behavior: Appropriate and Cooperative Mood Description: Calm Affect Description: Calm Ability to Follow Directions: Good Speech Pattern: Clear, Appropriate and Spontaneous Speech Memory Description: Intact Thought Process: Intact Thought Content: positive for Intact Judgement: Good Diagnostics Vital Signs (24Hr): Vital Signs - 24 hr 08/25/23 18:00 08/26/23 08:00 Temperature 98.9 F 98.3 F Pulse Rate 84 75 Respiratory Rate 16 18 Blood Pressure 138/82 133/65 Pulse Oximetry 97 98 Oxygen Delivery Method Room Air Room Air Medications Medications Current Medications Acetaminophen (Acetaminophen 325 Mg Tablet) 650 mg PO Q6H PRN PRN Reason: Headache/Pain Mild Scale (1-3) Last Admin: 08/26/23 08:21 Dose: 650 mg Al Hydroxide/Mg Hydroxide (Magnesium Hydrox/Alum Hydrox 30 Ml Oral.Susp) 30 ml PO Q6H PRN PRN Reason: Heartburn/Nausea Bupropion HCl (Bupropion Hcl Xl 150 Mg Tab.Er.24h) 450 mg PO DAILY [facility] Last Admin: 08/26/23 08:23 Dose: 450 mg Buspirone HCl (Buspirone Hcl 5 Mg Tablet) 15 mg PO TID [facility] Last Admin: 08/26/23 08:22 Dose: 15 mg Fluoxetine HCl (Fluoxetine Hcl 20 Mg Capsule) 20 mg PO DAILY [facility] Last Admin: 08/26/23 08:22 Dose: 20 mg Gabapentin (Gabapentin 400 Mg Capsule) 800 mg PO TID [facility] Last Admin: 08/26/23 08:22 Dose: 800 mg Hydroxyzine HCl (Hydroxyzine Hcl 50 Mg Tablet) 50 mg PO Q6H PRN PRN Reason: Anxiety Magnesium Hydroxide (Milk Of Magnesia 30 Ml Oral.Susp) 30 ml PO DAILY PRN PRN Reason: Constipation Melatonin (Melatonin 3 Mg Tablet) 9 mg PO BEDTIME PRN PRN Reason: insomnia Last Admin: 08/25/23 19:58 Dose: 9 mg Methadone HCl (Methadone Hcl 20 Mg/2 Ml Oral.Conc) 30 mg PO DAILY [facility] Last Admin: 08/26/23 08:21 Dose: 30 mg Nicotine (Nicotine 21 Mg Patch.Td24) 21 mg TRANSDERMA DAILY [facility] Last Admin: 08/26/23 08:20 Dose: 21 mg Nicotine Polacrilex (Nicotine Polacrilex 2 Mg Gum) 4 mg BUCCAL Q2H PRN PRN Reason: Nicotine Cravings Last Admin: 08/26/23 08:22 Dose: 4 mg Quetiapine Fumarate (Quetiapine Fumarate 300 Mg Tablet) 300 mg PO BEDTIME [facility] Last Admin: 08/25/23 19:59 Dose: 300 mg Trazodone HCl (Trazodone Hcl 50 Mg Tablet) 50 mg PO BEDTIME MRX1 PRN PRN Reason: Insomnia Allergies Allergies Allergy/AdvReac Type Severity Reaction Status Date / Time ibuprofen [IBUPROFEN] Allergy Unknown RASH Verified 04/04/22 13:22 henderson peppers Allergy Hives Uncoded 08/23/22 14:47 Assessment & Plan Assessment & Plan (1) PTSD (post-traumatic stress disorder): Status: Acute Code(s): F43.10 - Post-traumatic stress disorder, unspecified (2) MDD (major depressive disorder), recurrent severe, without psychosis: Status: Acute Code(s): F33.2 - Major depressive disorder, recurrent severe without psychotic features (3) Cocaine use disorder: Status: Acute Code(s): F14.10 - Cocaine abuse, uncomplicated (4) Opioid dependence: Status: Acute Code(s): F11.20 - Opioid dependence, uncomplicated (5) Alcohol dependence: Status: Acute Code(s): F10.20 - Alcohol dependence, uncomplicated Plan 47 yo male, history of PTSD, Depression, possibly bipolar disorder, alcohol and substance use seen in transfer from [facility] after found with intent to suicide via jumping from a bridge. Pt reports he slipped, fell and fractured his arm. Reports a recent discharge from [facility] who did not give him refills of medications. He reports he had no way of getting medications refilled thus his relapse and attempt. Other stressors include of daughter 05/18/23 in a drunk driving MVA and sister 05/22/23 from COVID. Plan: Pt has filed a three day notice of intent Re-establish regime Aftercare planning 08/23/23 - patient seems to minimize this event and seriousness of his substance use and how it is putting him at risk - otherwise CTP 3.31.24 hoping to return to , continue meds and reconnect with ex - /daugther on dc 08/24: continue current tx plan. 08/26/23: Continue current plan of care. Informed Consent: understands Reason for continued inpatient stay Substantial Risk for: rapid decompensation Time Spent With Patient Time: Total time managing care of this patient today ____ minutes.
[2023-08-26 18:20] VITALS: BP 154/81; PULSE 80; RESP 16; TEMP 36.8; O2SAT 97
[2023-08-26] MEDS: QUEtiapine Fumarate 300 MG TABLET PO (20:16)
[2023-08-26] MEDS: Melatonin 3 MG TABLET 9 MG PO (20:19)
[2023-08-27 06:00] VITALS: BP 119/78; PULSE 87; RESP 16; TEMP 36.4; O2SAT 97
[2023-08-27] MEDS: FLUoxetine HCl 20 MG CAPSULE PO (08:20)
[2023-08-27] MEDS: Nicotine 21 MG PATCH.TD24 TRANSDERMA (08:20)
[2023-08-27] MEDS: methADONE HCl 20 MG/2 ML ORAL.CONC 30 MG PO (08:20)
[2023-08-27] MEDS: Gabapentin 400 MG CAPSULE 800 MG PO (08:20)
[2023-08-27] MEDS: buPROPion HCl XL 150 MG TAB.ER.24H 450 MG PO (08:20)
[2023-08-27] MEDS: busPIRone HCl 5 MG TABLET 15 MG PO (08:20)
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
== END 2023-08-27 10:41 | disposition home or self-care (01) | DRG 885 ==
PROVIDERS: Admitting Provider Clinical Nurse Specialist Psychiatric/Mental Health, Adult; Visit Provider Clinical Nurse Specialist Psychiatric/Mental Health, Adult
DX: F33.2 Major depressive disorder, recurrent severe without psychotic features (principal); F11.20 Opioid dependence, uncomplicated; F43.10 Post-traumatic stress disorder, unspecified; J44.9 Chronic obstructive pulmonary disease, unspecified; F14.10 Cocaine abuse, uncomplicated; F10.20 Alcohol dependence, uncomplicated; F17.210 Nicotine dependence, cigarettes, uncomplicated; F19.90 Other psychoactive substance use, unspecified, uncomplicated; B19.20 Unspecified viral hepatitis C without hepatic coma; Z71.6 Tobacco abuse counseling; Z79.899 Other long term (current) drug therapy
CPT/HCPCS: 36415; 80061; 82607; 82746; 83036; 83735; 84439; 84443

== ENCOUNTER → 2023-08-21 15:31 | Outpatient (BNV) | payer OTHER, SELFPAY | PROVIDERS: Admitting Provider Clinical Nurse Specialist Psychiatric/Mental Health, Adult; Visit Provider Student in an Organized Health Care Education/Training Program | DX: Z02.2 Encounter for examination for admission to residential institution (principal) | CPT/HCPCS: 99429 ==

== ENCOUNTER → 2023-08-21 15:31 | Outpatient (BNV) | payer OTHER, SELFPAY | PROVIDERS: Admitting Provider Clinical Nurse Specialist Psychiatric/Mental Health, Adult; Visit Provider Clinical Nurse Specialist Psychiatric/Mental Health, Adult | DX: F33.2 Major depressive disorder, recurrent severe without psychotic features (principal); F14.10 Cocaine abuse, uncomplicated; F11.20 Opioid dependence, uncomplicated; F43.11 Post-traumatic stress disorder, acute; F10.20 Alcohol dependence, uncomplicated | CPT/HCPCS: 90792; 99231; 99238 ==

== ENCOUNTER 2024-01-21 02:21 | Emergency (ER) | payer OTHER, SELFPAY ==
--- NOTE | ~2024-01-21 | XR_ITS ---
Exam: X-ray ankle and foot, right INDICATION: Fall, pain. COMPARISON: None TECHNIQUE: 2 views of the left foot and 3 views of the left ankle FINDINGS: There is orthopedic hardware across the medial malleolus. No evidence for acute fracture. The ankle mortise is intact. No appreciable joint effusion. There are hypertrophic changes in the second and third metatarsals likely sequelae of prior trauma. Mild hallux valgus deformity. Mild spurring in the mid foot. XR/XR ankle RT min 3V IMPRESSION: 1. No evidence for acute fracture. 2. Hypertrophic changes in the second and third metatarsals likely sequelae of prior trauma. 3. Mild degenerative changes in the foot. Electronically signed by: Eric Gordon MD 01/21/2024 03:48 AM EDT
--- NOTE | ~2024-01-21 | XR_ITS ---
Exam: X-ray ankle and foot, right INDICATION: Fall, pain. COMPARISON: None TECHNIQUE: 2 views of the left foot and 3 views of the left ankle FINDINGS: There is orthopedic hardware across the medial malleolus. No evidence for acute fracture. The ankle mortise is intact. No appreciable joint effusion. There are hypertrophic changes in the second and third metatarsals likely sequelae of prior trauma. Mild hallux valgus deformity. Mild spurring in the mid foot. XR/XR foot RT min 3V IMPRESSION: 1. No evidence for acute fracture. 2. Hypertrophic changes in the second and third metatarsals likely sequelae of prior trauma. 3. Mild degenerative changes in the foot. Electronically signed by: Eric Gordon MD 01/21/2024 03:48 AM EDT
[2024-01-21 02:36] VITALS: BP 127/73; BP 132/84; PULSE 71; PULSE 73; RESP 16; TEMP 36.8; O2SAT 96; O2SAT 97; BMI 21.4
[2024-01-21 02:38] VITALS: BP 122/73; PULSE 69; RESP 18; TEMP 36.8; O2SAT 97
--- NOTE | 2024-01-21 02:39 | MHC.EDTECH ---
Patient BIBA changed into hospital attire,vitals taken and call henderson in reach
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
[2024-01-21] MEDS: Acetaminophen 325 MG TABLET 650 MG PO (03:07)
[2024-01-21 04:29] VITALS: BP 120/68; PULSE 60; RESP 18; TEMP 36.8; O2SAT 99
== END 2024-01-21 04:29 | disposition home or self-care (01) ==
PROVIDERS: Emergency Provider Emergency Medicine
DX: S93.601A Unspecified sprain of right foot, initial encounter (principal); W10.1XXA Fall (on)(from) sidewalk curb, initial encounter; F43.10 Post-traumatic stress disorder, unspecified; F11.20 Opioid dependence, uncomplicated; Y93.01 Activity, walking, marching and hiking; Y92.480 Sidewalk as the place of occurrence of the external cause; Y99.9 Unspecified external cause status
CPT/HCPCS: 73610; 73630; 99283; 99284

== ENCOUNTER 2024-04-14 15:45 | Outpatient (BNV) | payer OTHER, SELFPAY | END 2024-04-17 13:51 | PROVIDERS: Admitting Provider Psychiatry & Neurology Psychiatry; Visit Provider Internal Medicine Cardiovascular Disease | DX: R94.31 Abnormal electrocardiogram [ECG] [EKG] (principal) | CPT/HCPCS: 93010 ==

== ENCOUNTER 2024-04-14 15:45 | Inpatient (IN) | payer OTHER, SELFPAY ==
[2024-04-14 16:41] VITALS: BMI 21.2
[2024-04-14 16:45] VITALS: BP 125/76; PULSE 55; RESP 14; TEMP 36.8; O2SAT 97
[2024-04-14] MEDS: LORazepam 1 MG TABLET PO ×3 (17:03→21:16)
[2024-04-14] MEDS: Gabapentin 600 MG TABLET PO ×2 (17:03→21:17)
[2024-04-14] MEDS: Thiamine HCL 100 MG TABLET PO (17:03)
[2024-04-14 17:10] LABS: Appearance Urine Clear; Color Urine Dark Yellow; Glucose Urine UA Negative (Negative); Leukocyte Esterase Urine Negative (Negative); Nitrite Urine Negative (Negative); Specific Gravity - Urine 1.025 (1.005-1.025); Urine Blood Negative (Negative); Urine Ketones Trace mg/dL (Negative); Urine Protein Trace mg/dL (Neg-Trace)
[2024-04-14 17:13] LABS: Bacteria Urine None Seen (None Seen); Hyaline Casts Urine 0-2 /LPF (0-2); RBC Urine 0-2 /HPF (0-2); Squamous Epithelial Cell Urine 0-2 /HPF (0-2); WBC Urine 0-5 /HPF (0-5)
[2024-04-14 17:14] LABS: Amphetamine Screen Urine Not Detected (Not Detect); Barbiturates, Urine Not Detected (Not Detect); Benzodiazepines Screen Urine Not Detected (Not Detect); Buprenorphine Scr Positive (Not Detect); Cannabinoid Screen Urine POSITIVE (Not Detect); Cocaine Screen Urine POSITIVE (Not Detect); Fentanyl, urine POSITIVE (Not Detect); Methadone Screen, Urine Not Detected (Not Detect); Opiate Screen Urine POSITIVE (Not Detect); Oxycodone Screen Urine Not Detected (Not Detect); Phencyclidine Screen Urine Not Detected (Not Detect)
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
[2024-04-14 20:00] VITALS: BP 128/66; PULSE 79; TEMP 36.8; O2SAT 98
[2024-04-14] MEDS: LORazepam 1 MG TABLET 2 MG PO (21:16)
[2024-04-14 21:17] VITALS: BP 128/66
[2024-04-14] MEDS: QUEtiapine Fumarate 200 MG TABLET PO (21:17)
[2024-04-14] MEDS: busPIRone HCl 5 MG TABLET 15 MG PO (21:17)
[2024-04-14] MEDS: Prazosin HCL 1 MG CAPSULE 2 MG PO (21:17)
[2024-04-14] MEDS: Buprenorphine/Naloxone 8/2 mg FILM 1 FILM BUCCAL (21:18)
[2024-04-15] VITALS: BP 96/50; PULSE 60; TEMP 37.1; O2SAT 97
[2024-04-15 01:17] VITALS: BP 114/58; PULSE 68; TEMP 36.7; O2SAT 100
--- NOTE | 2024-04-15 01:18 | PC.NURSE ---
At approximately 0010, this blog writer attempted a CIWA assessment of this patient. At that time, he was difficult to rouse from sleep and his blood pressure was low. At approximately 1 am, this blog writer took vital signs on the patient again, and saw that his blood pressure had come up a bit, but the patient was still difficult to rouse from sleep. He was somewhat sweaty at that time, but showed no other objective withdrawal signs. This blog writer will reassess in 1 hour.
[2024-04-15 04:00] VITALS: BP 125/73; PULSE 57; TEMP 36.3; O2SAT 99
[2024-04-15 08:30] VITALS: BP 122/54; PULSE 57; RESP 16; TEMP 36.4; O2SAT 97
[2024-04-15] MEDS: LORazepam 1 MG TABLET PO ×3 (08:48→20:23)
[2024-04-15] MEDS: buPROPion HCl XL 150 MG TAB.ER.24H 450 MG PO (08:48)
[2024-04-15] MEDS: Buprenorphine/Naloxone 8/2 mg FILM 1 FILM BUCCAL ×2 (08:48→20:24)
[2024-04-15] MEDS: busPIRone HCl 5 MG TABLET 15 MG PO ×3 (08:49→20:24)
[2024-04-15] MEDS: Gabapentin 600 MG TABLET PO ×3 (08:49→20:22)
[2024-04-15] MEDS: Thiamine HCL 100 MG TABLET PO (08:49)
[2024-04-15] MEDS: Multivitamin TABLET 1 TAB PO (08:49)
[2024-04-15] MEDS: Folic Acid 1 MG TABLET PO (08:49)
--- NOTE | 2024-04-15 10:41 | HO.PM.IMCN ---
History of Present Illness Data of Consult Service Date: 04/15/24 Requesting physician: Juan Manuel Scott Primary Care Provider: None Physician HPI Reason for consult: medical consult Patient is a 48-year-old male with a past medical history significant for major depression, PTSD, alcohol abuse, polysubstance use disorder, and hepatitis-C (treated per pt), who was admitted to [facility] due to SI. He reported that he was drinking 1 L of vodka per day, using 3-4 bundles of IV heroin daily and ?as much cocaine as he could get IV. His last drink was a few days ago, he has been monitored with CIWA scores and using lorazepam for withdrawal. He does have a history of withdrawal seizure last year. He also complains of left great toe pain. He is very aggravated and would not answer many questions. States it has been painful and affecting walking. No drainage. Moderate pain. Review of Systems Review of Systems: limited as pt was not cooperative and argumentative about meeting Constitutional: Constitutional: Reports excessive sweating, Denies fever(s) and Reports headache(s) Eyes: Eyes: Denies change in vision ENT: Reports headache(s), Denies nasal congestion, Denies nasal discharge and Denies sore throat Cardiovascular: Cardiovascular: Denies chest pain, Denies rapid heart rate, Denies lightheadedness and Denies dyspnea Respiratory: Respiratory: Denies chest congestion, Denies cough and Denies dyspnea Gastrointestinal: Gastrointestinal: Reports nausea and Denies vomiting Integumentary/Breasts: Skin/Breast: Reports as per HPI Neurologic: Reports headache(s) Psychiatric: Psychiatric: Reports as per HPI Endocrine: Endocrine: Reports excessive sweating PMFSH Medical History COPD (chronic obstructive pulmonary disease) Cocaine use disorder Opioid dependence Alcohol dependence PTSD (post-traumatic stress disorder) MDD (major depressive disorder), recurrent severe, without psychosis Functional capacity: independent ambulation Social History Household Members: None Household Members Other:: homeless Housing: Homeless Do you presently have visiting nurse or other home services: No Alcohol intake: never Patient Tobacco Use Status: Current everyday Tobacco user Tobacco use type: Cigarette Cigarette Packs Per Day: 1 Cigarettes Per Day: 20.0 Years Smoked: 30 Smoked in Last 30 Days: Yes e-Cigarette/Vaping Use: Never Used Patient Interested in Nicotine Replacement: Yes Second Hand Smoke Exposure: Yes Use of substances other than those prescribed or required for medical reasons: Yes Substance Use Type: Crack/Cocaine, Heroin, IV Drugs, Marijuana, Opiates, Other and Caffiene Substance Use Frequency: Daily Last Used Substance: Just Prior to Admission Last Used Substance Other:: 3 to 4 bundles of heroin daily and cocaine as much as I can get . Currently Displaying Signs/Symptoms of Drug Intoxication Withdrawal: No Advance Directives: No Advance Directives Information Provided: Yes Do you have thoughts of harming others: None Do you have a plan to hurt others: No Plan Recently lost weight without trying: No Eating poorly because of decreased appetite: No service: No Sexual orientation: Straight/Heterosexual Meds Allergies Allergy/AdvReac Type Severity Reaction Status Date / Time ibuprofen [IBUPROFEN] Allergy Unknown RASH Verified 01/21/24 02:40 henderson peppers Allergy Hives Uncoded 08/23/22 14:47 Active Medications: Current Medications Acetaminophen (Acetaminophen 325 Mg Tablet) 650 mg PO Q6H PRN PRN Reason: Headache/Pain Mild Scale (1-3) Al Hydroxide/Mg Hydroxide (Magnesium Hydrox/Alum Hydrox 30 Ml Oral.Susp) 30 ml PO Q6H PRN PRN Reason: Heartburn/Nausea Buprenorphine/Naloxone (Buprenorphine/Naloxone 8/2 Mg Film) 1 film BUCCAL BID [facility] Last Admin: 04/15/24 08:48 Dose: 1 film Bupropion HCl (Bupropion Hcl Xl 150 Mg Tab.Er.24h) 450 mg PO DAILY [facility] Last Admin: 04/15/24 08:48 Dose: 450 mg Buspirone HCl (Buspirone Hcl 5 Mg Tablet) 15 mg PO TID [facility] Last Admin: 04/15/24 08:49 Dose: 15 mg Folic Acid (Folic Acid 1 Mg Tablet) 1 mg PO DAILY [facility] Last Admin: 04/15/24 08:49 Dose: 1 mg Gabapentin (Gabapentin 600 Mg Tablet) 600 mg PO TID [facility] Last Admin: 04/15/24 08:49 Dose: 600 mg Hydroxyzine HCl (Hydroxyzine Hcl 25 Mg Tablet) 25 mg PO Q6H PRN PRN Reason: Anxiety Lorazepam (Lorazepam 1 Mg Tablet) 1 mg PO Q2H PRN PRN Reason: CIWA 6-10 Last Admin: 04/14/24 17:06 Dose: 1 mg Lorazepam (Lorazepam 1 Mg Tablet) 2 mg PO Q2H PRN PRN Reason: CIWA 11 and above Last Admin: 04/14/24 21:16 Dose: 2 mg Lorazepam (Lorazepam 1 Mg Tablet) 1 mg PO TID [facility] Last Admin: 04/15/24 08:48 Dose: 1 mg Magnesium Hydroxide (Milk Of Magnesia 30 Ml Oral.Susp) 30 ml PO DAILY PRN PRN Reason: Constipation Melatonin (Melatonin 3 Mg Tablet) 9 mg PO BEDTIME PRN PRN Reason: insomnia Multivitamins/Vitamin C (Multivitamin Tablet) 1 tab PO DAILY [facility] Last Admin: 04/15/24 08:49 Dose: 1 tab Nicotine (Nicotine 21 Mg Patch.Td24) 21 mg TRANSDERMA DAILY PRN PRN Reason: Nicotine Cravings Nicotine Polacrilex (Nicotine Polacrilex 2 Mg Gum) 4 mg BUCCAL Q2H PRN PRN Reason: Nicotine Cravings Prazosin HCl (Prazosin Hcl 1 Mg Capsule) 2 mg PO BEDTIME SYLVIE; Protocol Last Admin: 04/14/24 21:17 Dose: 2 mg Quetiapine Fumarate (Quetiapine Fumarate 200 Mg Tablet) 200 mg PO BEDTIME [facility] Last Admin: 04/14/24 21:17 Dose: 200 mg Thiamine HCl (Thiamine Hcl 100 Mg Tablet) 100 mg PO DAILY [facility] Last Admin: 04/15/24 08:49 Dose: 100 mg Trazodone HCl (Trazodone Hcl 50 Mg Tablet) 50 mg PO BEDTIME MRX1 PRN PRN Reason: Insomnia Home Medications ?Medication ?Instructions ?Recorded ?Confirmed ?Last Taken ?Type buprenorphine 8 mg-naloxone 2 mg 1 film buccal BID 04/14/24 04/14/24 Unknown History sublingual film (Suboxone) gabapentin 600 mg tablet 600 mg PO TID 04/14/24 04/14/24 04/14/24 08:00 History nicotine 21 mg/24 hr daily 21 mg transdermal DAILY PRN 04/14/24 04/14/24 Unknown History transdermal patch Nicotine Cravings prazosin 2 mg capsule 2 mg PO BEDTIME 04/14/24 04/14/24 Unknown History quetiapine 200 mg tablet 200 mg PO BEDTIME 04/14/24 04/14/24 Unknown History Physical Exam Vital Signs and Narrative: Vital Signs: Last Vital Signs Temp 97.6 F 04/15/24 08:30 Pulse 57 04/15/24 08:30 Resp 16 04/15/24 08:30 BP 122/54 L 04/15/24 08:30 Pulse Ox 97 04/15/24 08:30 O2 Del Method Room Air 04/15/24 08:30 BMI result Body Mass Index 21.2 General: AOx3, no acute distress, eating cereal in bed Resp: CTA bilaterally CVS: RRR no murmur Skin: Warm, dry Neuro: pt not compliant with exam. speech clear, moving all extremities without difficulty. no active tremor. no facial droop. Extremities: No edema. erythematous L great toe, painful to touch. mild erythema of the remaining toes, pain localized to the L great toe. Psych: Appropriate affect Results Labs Labs: Laboratory Results - last 24 hr 04/14/24 16:43 Urine Color Dark Yellow Urine Appearance Clear Urine pH 6.0 Ur Specific [place] 1.025 Urine Protein Trace Urine Glucose (UA) Negative Urine Ketones Trace Urine Blood Negative Urine Nitrite Negative Ur Leukocyte Esterase Negative Urine RBC 0-2 Urine WBC 0-5 Ur Squamous Epith Cells 0-2 Urine Bacteria None Seen Hyaline Casts 0-2 Urine Opiates Screen POSITIVE H Ur Buprenorphine Scrn Positive H Ur Oxycodone Screen Not Detected Urine Methadone Screen Not Detected Urine Fentanyl Screen POSITIVE H Ur Barbiturates Screen Not Detected Ur Phencyclidine Scrn Not Detected Ur Amphetamines Screen Not Detected U Benzodiazepines Scrn Not Detected Urine Cocaine Screen POSITIVE H U Marijuana (THC) Screen POSITIVE H Assessment and Plan (1) Medical clearance for psychiatric admission: Status: Acute (2) Cellulitis: Status: Acute Plan Patient is a 48-year-old male with a past medical history significant for major depression, PTSD, alcohol abuse, polysubstance use disorder, and hepatitis-C (treated per pt), who was admitted to adult psych due to SI. mood disorder - plan per psych L great toe cellulitis - start bactrim x5 days for MRSA coverage due to IVDU - added CBC and CRP to labs - continue to monitor - if large elevation of WBC, worsening pain, or no improvement with abx consider xray of L foot etoh withdrawal - continue CIWAs - ativan as ordered - on folic acid, thiamine, multivitamin polysubstance abuse - addiction med consult in hep C - treated per pt - CMP ordered Thank you for allowing me to participate in the pt's care. Will continue to follow. Please contact the medical team if any questions or concerns.
--- NOTE | 2024-04-15 10:51 | HO.PSYADMNOT ---
HPI Date of Service: 04/15/24 Chief Complaint: Schizoaffective Disorder, Opiate use disorder Sources of Information: patient interviewed, chart reviewed and crisis/core team assessment reviewed HPI Subjective Notes: [place] Warning and Conditional Voluntary Healthcare Proxy: No Guardianship: No Medical Problems Affecting Mental Status: No Narrative: 48 yo with a history of schizoaffective disorder, opiate use disorder, polysubstance use sent in transfer from [facility] s/p suicide attempt via heroin OD and reports of increased depression and feeling hopeless. Reports daughter in an MVA a few months ago and girlfriend a few days ago of an accidental overdose. 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 Reports sleep and appetite disturbance, active SI with plan and intent. These, combined with recent losses and stressors are overwhelming and he struggles with how to manage Past Psychiatric History: History of multiple inpatient psychiatric hospitalizations- 10 since 10/2022, [facility] [place], [place], [facility] [place], [place], Annmarie Valentine, [facility], Julita Valentine, [facility] History of detox, [address] Past medications: Seroquel 200 mg q.h.s., clonidine, gabapentin 800 mg t.i.d. Wellbutrin Medical Evaluation Reviewed: Yes [facility] Medical History (Updated 04/15/24 @ 11:44 by Adriana Rodriguez, JOSE LUIS) Polysubstance use disorder Schizoaffective disorder COPD (chronic obstructive pulmonary disease) Cocaine use disorder Opioid dependence Alcohol dependence PTSD (post-traumatic stress disorder) MDD (major depressive disorder), recurrent severe, without psychosis Family History: pt reports everyone when asked about family hx of mental illness. Social History: Single, 2 children(reports one child recently in car accident), one daughter age 13, Kary and ex- Evelyn, with whom he lives, receives SSI Born in [place]. Father has -pt was estranged, he murdered someone when I was young and was not in my life. Mother in LTC facility in [place] with dementia post CVA, L corky and [place]. Pt reports dementia has progressed Substance History: Toxicology positive for opiates, suboxone, fentanyl, cocaine, cannabis Trauma History: Affirms Diagnostics Vital Signs (24Hr): Vital Signs - 24 hr 04/14/24 16:45 04/14/24 20:00 04/14/24 21:17 Temperature 98.2 F 98.2 F Pulse Rate 55 79 Respiratory Rate 14 Blood Pressure 125/76 128/66 128/66 Pulse Oximetry 97 98 Oxygen Delivery Method Room Air Room Air 04/15/24 00:00 04/15/24 01:17 04/15/24 04:00 Temperature 98.8 F 98.1 F 97.4 F Pulse Rate 60 68 57 Respiratory Rate Blood Pressure 96/50 L 114/58 L 125/73 Pulse Oximetry 97 100 99 Oxygen Delivery Method Room Air Room Air Room Air 04/15/24 08:30 Temperature 97.6 F Pulse Rate 57 Respiratory Rate 16 Blood Pressure 122/54 L Pulse Oximetry 97 Oxygen Delivery Method Room Air BMI result Body Mass Index 21.2 Labs Labs: Laboratory Results - last 48 hr 04/14/24 16:43 Urine Color Dark Yellow Urine Appearance Clear Urine pH 6.0 Ur Specific [place] 1.025 Urine Protein Trace Urine Glucose (UA) Negative Urine Ketones Trace Urine Blood Negative Urine Nitrite Negative Ur Leukocyte Esterase Negative Urine RBC 0-2 Urine WBC 0-5 Ur Squamous Epith Cells 0-2 Urine Bacteria None Seen Hyaline Casts 0-2 Urine Opiates Screen POSITIVE H Ur Buprenorphine Scrn Positive H Ur Oxycodone Screen Not Detected Urine Methadone Screen Not Detected Urine Fentanyl Screen POSITIVE H Ur Barbiturates Screen Not Detected Ur Phencyclidine Scrn Not Detected Ur Amphetamines Screen Not Detected U Benzodiazepines Scrn Not Detected Urine Cocaine Screen POSITIVE H U Marijuana (THC) Screen POSITIVE H Meds/Allergies Meds Home Medications ?Medication ?Instructions ?Recorded ?Confirmed ?Type buprenorphine 8 mg-naloxone 2 mg 1 film buccal BID 04/14/24 04/14/24 History sublingual film (Suboxone) gabapentin 600 mg tablet 600 mg PO TID 04/14/24 04/14/24 History nicotine 21 mg/24 hr daily 21 mg transdermal DAILY PRN 04/14/24 04/14/24 History transdermal patch Nicotine Cravings prazosin 2 mg capsule 2 mg PO BEDTIME 04/14/24 04/14/24 History quetiapine 200 mg tablet 200 mg PO BEDTIME 04/14/24 04/14/24 History Allergies Allergies Allergy/AdvReac Type Severity Reaction Status Date / Time ibuprofen [IBUPROFEN] Allergy Unknown RASH Verified 01/21/24 02:40 henderson peppers Allergy Hives Uncoded 08/23/22 14:47 Mental Status Exam Mental Status Exam Patient Appearance: Fatigued Patient Orientation: Person, Place and Situation Level of Consciousness: Alert Patient Behavior: Cooperative Mood Description: Depressed Affect Description: Flat Patient Cognition Impaired: No Ability to Follow Directions: Fair Speech Pattern: Spontaneous Speech Perceptual Disturbances: Depersonalization and Derealization Thought Process: Rumination Thought Content: positive for Perseveration and positive for Suicidal Ideation Depressive Symptoms: Thoughts of /Suicide Judgement: Fair Assessment & Plan Assessment & Plan (1) Schizoaffective disorder: Status: Acute Code(s): F25.9 - Schizoaffective disorder, unspecified (2) Opioid dependence: Status: Acute Code(s): F11.20 - Opioid dependence, uncomplicated (3) Polysubstance use disorder: Status: Acute Code(s): F19.90 - Other psychoactive substance use, unspecified, uncomplicated Plan Schizoaffective Disorder, Opiate Use Disorder, Polysubstance Use Disorder Plan: Admit, CV, 15 minute checks Collateral contacts Diagnostics as needed Medication re-evaluation Encourage full milieu Discharge planning Patient educated on: therapeutic strategies Reason for continued inpatient stay Substantial Risk for: rapid decompensation Statement Statement: I have reviewed the history and physical and performed a pertinent examination on my patient. No changes have occurred unless specified. If the History and Physical was not performed prior to admission, the Hospitalist's service will be consulted for completing the admission physical. Time Spent With Patient Time: Total time managing care of this patient today ____ minutes.
--- NOTE | 2024-04-15 14:16 | MHC.RECOVRN ---
AUDIT-C Brief Intervention Pt had positive screen for unhealthy alcohol use on admission. Attempted to meet with pt to discuss alcohol use and offer resources, pt declined.
[2024-04-15 20:00] VITALS: BP 131/76; PULSE 70; RESP 16; TEMP 36.8; O2SAT 96
[2024-04-15 20:23] VITALS: BP 131/76
[2024-04-15] MEDS: Sulfamethox/Trimeth 800/160 TABLET 1 TAB PO (20:23)
[2024-04-15] MEDS: Prazosin HCL 1 MG CAPSULE 2 MG PO (20:23)
[2024-04-15] MEDS: QUEtiapine Fumarate 200 MG TABLET PO (20:23)
[2024-04-16 08:00] VITALS: BP 130/78; PULSE 72; TEMP 36.6; O2SAT 99
[2024-04-16] MEDS: Multivitamin TABLET 1 TAB PO (09:01)
[2024-04-16] MEDS: LORazepam 1 MG TABLET PO ×4 (09:01→20:59)
[2024-04-16] MEDS: busPIRone HCl 5 MG TABLET 15 MG PO ×3 (09:01→20:43)
[2024-04-16] MEDS: Sulfamethox/Trimeth 800/160 TABLET 1 TAB PO ×2 (09:01→20:59)
[2024-04-16] MEDS: Thiamine HCL 100 MG TABLET PO (09:01)
[2024-04-16] MEDS: Folic Acid 1 MG TABLET PO (09:01)
[2024-04-16] MEDS: buPROPion HCl XL 150 MG TAB.ER.24H 450 MG PO (09:01)
[2024-04-16] MEDS: Gabapentin 600 MG TABLET PO ×3 (09:02→20:59)
[2024-04-16] MEDS: Buprenorphine/Naloxone 8/2 mg FILM 1 FILM BUCCAL (09:02)
[2024-04-16 12:40] VITALS: BP 138/80; PULSE 78; TEMP 36.6; O2SAT 97
--- NOTE | 2024-04-16 12:48 | HO.PSYCHPN ---
Subjective Subjective Date of Service: 04/16/24 Reason For Visit: Schizoaffective Disorder, Opiate use disorder Subjective Notes: Conditional Voluntary Healthcare Proxy: No Guardianship: No Medical Problems Affecting Mental Status: No Interim History: Isolative, angry, poor interactions with peers/team. At one point pt took excessive amounts of food from the unit cart to his room-verbally caustic and confrontive to team and peers. Not wanting much interaction. Talks briefly with tw from his bed a few times today. Poor historian, depressed with overwhelming losses and facing this holiday season. Does report he believes he is in active withdrawal. Suboxone dosing changes made to address this Medication Compliance: Yes Side effects from medications: Yes (?withdrawal) Attending Groups: No Review of Systems Acute medical concerns: No Review of Systems Review of Systems Reports withdrawal Mental Status Exam Mental Status Exam Patient Appearance: Fatigued and Disheveled Patient Orientation: Person, Place, Time and Situation Level of Consciousness: Restless and Alert Patient Behavior: Guarded, Talkative, Restless, Belligerent, Verbal Threats, Swearing, Anxious, Avoidant, Fatigued, Distractible, Isolative, Impulsive and Poor Eye Contact Mood Description: Labile and Angry Affect Description: Labile Patient Cognition Impaired: No Ability to Follow Directions: Fair Speech Pattern: Perseverating, Spontaneous Speech and Loud Memory Description: Episodic Impaired Hallucinations: None Delusions: Not Present Perceptual Disturbances: Depersonalization and Derealization Thought Process: Distracted, Rumination and Evasive Thought Content: positive for Circumstantial, positive for Perseveration and positive for Suicidal Ideation Depressive Symptoms: Increased Irritability, Thoughts of /Suicide and Low Self Esteem Abnormal Motor Activity Signs and Symptoms: Agitation Judgement: Fair Diagnostics Vital Signs (24Hr): Vital Signs - 24 hr 04/15/24 20:00 04/15/24 20:23 04/16/24 08:00 Temperature 98.2 F 98 F Pulse Rate 70 72 Respiratory Rate 16 Blood Pressure 131/76 131/76 130/78 Pulse Oximetry 96 99 Oxygen Delivery Method Room Air Room Air BMI result Body Mass Index 21.2 Labs Labs: Laboratory Results - last 48 hr 04/14/24 16:43 Urine Color Dark Yellow Urine Appearance Clear Urine pH 6.0 Ur Specific [place] 1.025 Urine Protein Trace Urine Glucose (UA) Negative Urine Ketones Trace Urine Blood Negative Urine Nitrite Negative Ur Leukocyte Esterase Negative Urine RBC 0-2 Urine WBC 0-5 Ur Squamous Epith Cells 0-2 Urine Bacteria None Seen Hyaline Casts 0-2 Urine Opiates Screen POSITIVE H Ur Buprenorphine Scrn Positive H Ur Oxycodone Screen Not Detected Urine Methadone Screen Not Detected Urine Fentanyl Screen POSITIVE H Ur Barbiturates Screen Not Detected Ur Phencyclidine Scrn Not Detected Ur Amphetamines Screen Not Detected U Benzodiazepines Scrn Not Detected Urine Cocaine Screen POSITIVE H U Marijuana (THC) Screen POSITIVE H EKG EKG Comment: From [facility] Rate 53, sinus bradycardia QTc 422 Medications Medications Current Medications Acetaminophen (Acetaminophen 325 Mg Tablet) 650 mg PO Q6H PRN PRN Reason: Headache/Pain Mild Scale (1-3) Al Hydroxide/Mg Hydroxide (Magnesium Hydrox/Alum Hydrox 30 Ml Oral.Susp) 30 ml PO Q6H PRN PRN Reason: Heartburn/Nausea Buprenorphine/Naloxone (Buprenorphine/Naloxone 8/2 Mg Film) 1 film BUCCAL BID [facility] Last Admin: 04/16/24 09:02 Dose: 1 film Bupropion HCl (Bupropion Hcl Xl 150 Mg Tab.Er.24h) 450 mg PO DAILY [facility] Last Admin: 04/16/24 09:01 Dose: 450 mg Buspirone HCl (Buspirone Hcl 5 Mg Tablet) 15 mg PO TID [facility] Last Admin: 04/16/24 09:01 Dose: 15 mg Folic Acid (Folic Acid 1 Mg Tablet) 1 mg PO DAILY [facility] Last Admin: 04/16/24 09:01 Dose: 1 mg Gabapentin (Gabapentin 600 Mg Tablet) 600 mg PO TID [facility] Last Admin: 04/16/24 09:02 Dose: 600 mg Hydroxyzine HCl (Hydroxyzine Hcl 25 Mg Tablet) 25 mg PO Q6H PRN PRN Reason: Anxiety Lorazepam (Lorazepam 1 Mg Tablet) 1 mg PO Q2H PRN PRN Reason: CIWA 6-10 Last Admin: 04/16/24 12:40 Dose: 1 mg Lorazepam (Lorazepam 1 Mg Tablet) 2 mg PO Q2H PRN PRN Reason: CIWA 11 and above Last Admin: 04/14/24 21:16 Dose: 2 mg Lorazepam (Lorazepam 1 Mg Tablet) 1 mg PO TID [facility] Last Admin: 04/16/24 09:01 Dose: 1 mg Magnesium Hydroxide (Milk Of Magnesia 30 Ml Oral.Susp) 30 ml PO DAILY PRN PRN Reason: Constipation Melatonin (Melatonin 3 Mg Tablet) 9 mg PO BEDTIME PRN PRN Reason: insomnia Multivitamins/Vitamin C (Multivitamin Tablet) 1 tab PO DAILY [facility] Last Admin: 04/16/24 09:01 Dose: 1 tab Nicotine (Nicotine 21 Mg Patch.Td24) 21 mg TRANSDERMA DAILY PRN PRN Reason: Nicotine Cravings Nicotine Polacrilex (Nicotine Polacrilex 2 Mg Gum) 4 mg BUCCAL Q2H PRN PRN Reason: Nicotine Cravings Prazosin HCl (Prazosin Hcl 1 Mg Capsule) 2 mg PO BEDTIME SYLVIE; Protocol Last Admin: 04/15/24 20:23 Dose: 2 mg Quetiapine Fumarate (Quetiapine Fumarate 200 Mg Tablet) 200 mg PO BEDTIME SYLVIE Last Admin: 04/15/24 20: Dose: 200 mg Thiamine HCl (Thiamine Hcl 100 Mg Tablet) 100 mg PO DAILY [facility] Last Admin: 04/16/24 09:01 Dose: 100 mg Trazodone HCl (Trazodone Hcl 50 Mg Tablet) 50 mg PO BEDTIME MRX1 PRN PRN Reason: Insomnia Trimethoprim/Sulfamethoxazole (Sulfamethox/Trimeth 800/160 Tablet) 1 tab PO BID [facility] Stop: 04/20/24 09:01 Last Admin: 04/16/24 09:01 Dose: 1 tab Allergies Allergies Allergy/AdvReac Type Severity Reaction Status Date / Time ibuprofen [IBUPROFEN] Allergy Unknown RASH Verified 01/21/24 02:40 henderson peppers Allergy Hives Uncoded 08/23/22 14:47 Assessment & Plan Assessment & Plan (1) Schizoaffective disorder: Status: Acute Code(s): F25.9 - Schizoaffective disorder, unspecified (2) Opioid dependence: Status: Acute Code(s): F11.20 - Opioid dependence, uncomplicated (3) Polysubstance use disorder: Status: Acute Code(s): F19.90 - Other psychoactive substance use, unspecified, uncomplicated Plan Schizoaffective Disorder, Opiate Use Disorder, Polysubstance Use Disorder Plan: Admit, CV, 15 minute checks Collateral contacts Diagnostics as needed Medication re-evaluation Encourage full milieu Discharge planning 04/16: Adjust Suboxone dosing Olanzapine prn Reason for continued inpatient stay Substantial Risk for: rapid decompensation Time Spent With Patient Time: Total time managing care of this patient today ____ minutes.
[2024-04-16] MEDS: hydrOXYzine HCL 25 MG TABLET PO (13:32)
[2024-04-16] MEDS: Nicotine 21 MG PATCH.TD24 TRANSDERMA (13:32)
[2024-04-16] MEDS: Nicotine Polacrilex 2 MG GUM 4 MG BUCCAL (13:37)
[2024-04-16] MEDS: Buprenorphine/Naloxone 8/2 mg FILM 1 FILM SUBLINGUAL (15:01)
[2024-04-16 20:00] VITALS: BP 138/92; PULSE 78; TEMP 37.2; O2SAT 97
[2024-04-16] MEDS: Prazosin HCL 1 MG CAPSULE 2 MG PO (20:59)
[2024-04-16] MEDS: Melatonin 3 MG TABLET 9 MG PO (20:59)
[2024-04-16] MEDS: QUEtiapine Fumarate 200 MG TABLET PO (20:59)
[2024-04-17] VITALS: BP 134/90; PULSE 82
--- NOTE | 2024-04-17 | ECG_ITS ---
Test Reason : check qtc Blood Pressure : / mmHG Vent. Rate : 072 BPM Atrial Rate : 072 BPM P-R Int : 140 ms QRS Dur : 084 ms QT Int : 380 ms P-R-T Axes : 044 -31 039 degrees QTc Int : 416 ms Normal sinus rhythm Left axis deviation Minimal voltage criteria for LVH, may be normal variant ( Nicko product ) Abnormal ECG When compared with ECG of 04-DEC-2017 19:21, Vent. rate has increased BY 26 BPM Referred By: Emily Cheema Electronically Signed By:TAVIA HUI MD
[2024-04-17 04:00] VITALS: BP 132/86; PULSE 86
[2024-04-17] MEDS: hydrOXYzine HCL 25 MG TABLET PO (05:03)
[2024-04-17 08:40] VITALS: BP 120/72; PULSE 75; RESP 18; TEMP 37; O2SAT 98
[2024-04-17] MEDS: LORazepam 1 MG TABLET PO ×2 (08:59→22:14)
[2024-04-17] MEDS: busPIRone HCl 5 MG TABLET 15 MG PO ×3 (08:59→22:14)
[2024-04-17] MEDS: buPROPion HCl XL 150 MG TAB.ER.24H 450 MG PO (09:00)
[2024-04-17] MEDS: Folic Acid 1 MG TABLET PO (09:00)
[2024-04-17] MEDS: Sulfamethox/Trimeth 800/160 TABLET 1 TAB PO ×2 (09:00→22:13)
[2024-04-17] MEDS: Gabapentin 600 MG TABLET PO ×3 (09:00→22:13)
[2024-04-17] MEDS: Multivitamin TABLET 1 TAB PO (09:00)
[2024-04-17] MEDS: Thiamine HCL 100 MG TABLET PO (09:00)
[2024-04-17] MEDS: Buprenorphine/Naloxone 8/2 mg FILM 1 FILM SUBLINGUAL (09:01)
--- NOTE | 2024-04-17 12:50 | HO.PSYCHPN ---
Subjective Subjective Date of Service: 04/17/24 Reason For Visit: Schizoaffective Disorder, Opiate use disorder Subjective Notes: Conditional Voluntary Healthcare Proxy: No Guardianship: No Medical Problems Affecting Mental Status: No Interim History: 48 yo WM extremely depressed lying in bed facing wall/window- mumbled responses, didn't sleep well - ongoing hopelessness in face of many losses recent- ongoing cravings for alcohol but not candidate for naltrexone due to suboxone nursing report severe depression- Medication Compliance: Yes Side effects from medications: No Attending Groups: No Review of Systems Acute medical concerns: No [facility] protocol will dec lorazepam from tid to bid Medical Review of Systems: unchanged Mental Status Exam Mental Status Exam Patient Appearance: Disheveled Patient Orientation: Person, Place, Time and Situation Level of Consciousness: Drowsy Patient Behavior: Avoidant and Isolative Mood Description: Sad Affect Description: Constricted Patient Cognition Impaired: No Ability to Follow Directions: Fair Speech Pattern: Impoverished and Poor Articulation Hallucinations: None Delusions: Not Present Thought Process: Intact and Goal Oriented Thought Content: positive for Preoccupation and positive for Suicidal Ideation Depressive Symptoms: Feelings of Worthlessness, Hopelessness, Isolating-Friends/Family, Feelings of Guilt, Unhappiness, Increased Fatigue and Loss of Energy Judgement: Fair Diagnostics Vital Signs (24Hr): Vital Signs - 24 hr 04/16/24 20:00 04/17/24 00:00 04/17/24 04:00 Temperature 98.9 F Pulse Rate 78 82 86 Respiratory Rate Blood Pressure 138/92 H 134/90 H 132/86 Pulse Oximetry 97 Oxygen Delivery Method Room Air 04/17/24 08:40 Temperature 98.6 F Pulse Rate 75 Respiratory Rate 18 Blood Pressure 120/72 Pulse Oximetry 98 Oxygen Delivery Method Room Air BMI result Body Mass Index 21.2 Medications Medications Current Medications Acetaminophen (Acetaminophen 325 Mg Tablet) 650 mg PO Q6H PRN PRN Reason: Headache/Pain Mild Scale (1-3) Al Hydroxide/Mg Hydroxide (Magnesium Hydrox/Alum Hydrox 30 Ml Oral.Susp) 30 ml PO Q6H PRN PRN Reason: Heartburn/Nausea Buprenorphine/Naloxone (Buprenorphine/Naloxone 8/2 Mg Film) 1 film SUBLINGUAL DAILY [facility] Last Admin: 04/17/24 09:01 Dose: 1 film Bupropion HCl (Bupropion Hcl Xl 150 Mg Tab.Er.24h) 450 mg PO DAILY [facility] Last Admin: 04/17/24 09:00 Dose: 450 mg Buspirone HCl (Buspirone Hcl 5 Mg Tablet) 15 mg PO TID [facility] Last Admin: 04/17/24 08:59 Dose: 15 mg Folic Acid (Folic Acid 1 Mg Tablet) 1 mg PO DAILY [facility] Last Admin: 04/17/24 09:00 Dose: 1 mg Gabapentin (Gabapentin 600 Mg Tablet) 600 mg PO TID [facility] Last Admin: 04/17/24 09:00 Dose: 600 mg Hydroxyzine HCl (Hydroxyzine Hcl 25 Mg Tablet) 25 mg PO Q6H PRN PRN Reason: Anxiety Last Admin: 04/17/24 05:03 Dose: 25 mg Lorazepam (Lorazepam 1 Mg Tablet) 1 mg PO Q2H PRN PRN Reason: CIWA 6-10 Last Admin: 04/16/24 12:40 Dose: 1 mg Lorazepam (Lorazepam 1 Mg Tablet) 2 mg PO Q2H PRN PRN Reason: CIWA 11 and above Last Admin: 04/14/24 21:16 Dose: 2 mg Lorazepam (Lorazepam 1 Mg Tablet) 1 mg PO TID [facility] Last Admin: 04/17/24 08:59 Dose: 1 mg Magnesium Hydroxide (Milk Of Magnesia 30 Ml Oral.Susp) 30 ml PO DAILY PRN PRN Reason: Constipation Melatonin (Melatonin 3 Mg Tablet) 9 mg PO BEDTIME PRN PRN Reason: insomnia Last Admin: 04/16/24 20:59 Dose: 9 mg Multivitamins/Vitamin C (Multivitamin Tablet) 1 tab PO DAILY [facility] Last Admin: 04/17/24 09:00 Dose: 1 tab Nicotine (Nicotine 21 Mg Patch.Td24) 21 mg TRANSDERMA DAILY PRN PRN Reason: Nicotine Cravings Last Admin: 04/16/24 13:32 Dose: 21 mg Nicotine Polacrilex (Nicotine Polacrilex 2 Mg Gum) 4 mg BUCCAL Q2H PRN PRN Reason: Nicotine Cravings Last Admin: 04/16/24 13:37 Dose: 4 mg Olanzapine (Olanzapine 5 Mg Tablet) 5 mg PO Q4H PRN PRN Reason: agitation Prazosin HCl (Prazosin Hcl 1 Mg Capsule) 2 mg PO BEDTIME [facility]; Protocol Last Admin: 04/16/24 20:59 Dose: 2 mg Quetiapine Fumarate (Quetiapine Fumarate 200 Mg Tablet) 200 mg PO BEDTIME [facility] Last Admin: 04/16/24 20:59 Dose: 200 mg Thiamine HCl (Thiamine Hcl 100 Mg Tablet) 100 mg PO DAILY [facility] Last Admin: 04/17/24 09:00 Dose: 100 mg Trazodone HCl (Trazodone Hcl 50 Mg Tablet) 50 mg PO BEDTIME MRX1 PRN PRN Reason: Insomnia Trimethoprim/Sulfamethoxazole (Sulfamethox/Trimeth 800/160 Tablet) 1 tab PO BID [facility] Stop: 04/20/24 09:01 Last Admin: 04/17/24 09:00 Dose: 1 tab Allergies Allergies Allergy/AdvReac Type Severity Reaction Status Date / Time ibuprofen [IBUPROFEN] Allergy Unknown RASH Verified 01/21/24 02:40 henderson peppers Allergy Hives Uncoded 08/23/22 14:47 Assessment & Plan Assessment & Plan (1) Schizoaffective disorder: Status: Acute Code(s): F25.9 - Schizoaffective disorder, unspecified (2) Opioid dependence: Status: Acute Code(s): F11.20 - Opioid dependence, uncomplicated (3) Polysubstance use disorder: Status: Acute Code(s): F19.90 - Other psychoactive substance use, unspecified, uncomplicated Plan Schizoaffective Disorder, Opiate Use Disorder, Polysubstance Use Disorder Plan: Admit, CV, 15 minute checks Collateral contacts Diagnostics as needed Medication re-evaluation Encourage full milieu Discharge planning 04/16: Adjust Suboxone dosing Olanzapine prn 04/17 - inc seroquel for sleep 300mg- continues deeply depressed and despondent- with si no plan here, some alcohol and drug cravings ? topamax ? accamprosate- though none problem main issue at this point Patient educated on: medication risk/benefits and other (grieving process) Informed Consent: understands and further education needed (re grief) Reason for continued inpatient stay Substantial Risk for: harm to self and rapid decompensation Time Spent With Patient Time: Total time managing care of this patient today ____ minutes.
[2024-04-17 20:00] VITALS: BP 141/67; PULSE 76; RESP 16; TEMP 36.4; O2SAT 97
[2024-04-17] MEDS: Prazosin HCL 1 MG CAPSULE 2 MG PO (22:14)
[2024-04-17] MEDS: QUEtiapine Fumarate 300 MG TABLET PO (22:14)
[2024-04-18] VITALS: BP 138/82; PULSE 90; RESP 16
[2024-04-18 04:00] VITALS: BP 132/88; PULSE 82; RESP 16; O2SAT 96
[2024-04-18 08:21] VITALS: BP 129/60; PULSE 70; RESP 16; TEMP 37.5; O2SAT 97
--- NOTE | 2024-04-18 08:25 | PC.NURSE ---
suboxone; unable to be administered in allocated time frame as pt is eating breakfast. will reapproach in 20 min.
[2024-04-18] MEDS: busPIRone HCl 5 MG TABLET 15 MG PO ×3 (08:26→20:38)
[2024-04-18] MEDS: Gabapentin 600 MG TABLET PO ×3 (08:27→20:39)
[2024-04-18] MEDS: Multivitamin TABLET 1 TAB PO (08:27)
[2024-04-18] MEDS: Folic Acid 1 MG TABLET PO (08:27)
[2024-04-18] MEDS: buPROPion HCl XL 150 MG TAB.ER.24H 450 MG PO (08:27)
[2024-04-18] MEDS: LORazepam 1 MG TABLET PO ×3 (08:27→20:39)
[2024-04-18] MEDS: Thiamine HCL 100 MG TABLET PO (08:27)
[2024-04-18] MEDS: Sulfamethox/Trimeth 800/160 TABLET 1 TAB PO ×2 (08:27→20:38)
[2024-04-18] MEDS: Acetaminophen 325 MG TABLET 650 MG PO (08:30)
[2024-04-18] MEDS: Nicotine 21 MG PATCH.TD24 TRANSDERMA (08:32)
[2024-04-18] MEDS: Nicotine Polacrilex 2 MG GUM 4 MG BUCCAL ×2 (08:53→17:46)
[2024-04-18] MEDS: Buprenorphine/Naloxone 8/2 mg FILM 1 FILM SUBLINGUAL (08:53)
--- NOTE | 2024-04-18 12:47 | P.PNPSI_ITS ---
Subjective Subjective Date of Service: 04/18/24 Reason For Visit: Schizoaffective Disorder, Opiate use disorder Subjective Notes: Conditional Voluntary Healthcare Proxy: No Guardianship: No Medical Problems Affecting Mental Status: No Interim History: 48 yo reports 300 seroquemady was what he was previously on - still trouble sleeping but used to take with melatonin- which is on his list but as prn- So I changed to scheduled- pt is up and out of bed, looking a little more groomed/appropriate today waiting for lunch- ongoing dep/si vss re withdrawl- tolerating ativan taper Medication Compliance: Yes Side effects from medications: No Attending Groups: No Review of Systems Acute medical concerns: No Medical Review of Systems: unchanged Mental Status Exam Mental Status Exam Patient Appearance: Well Grooomed and Appropriate Patient Orientation: Person, Place, Time and Situation Level of Consciousness: Awake Patient Behavior: Appropriate, Guarded and Cooperative Mood Description: Sad Affect Description: Withdrawn and Blunted Patient Cognition Impaired: No Ability to Follow Directions: Fair Hallucinations: None Thought Process: Intact and Goal Oriented Thought Content: positive for Intact (focused on grief) and positive for Suicidal Ideation Depressive Symptoms: Difficulty Sleeping, Feelings of Worthlessness, Hopelessness and Thoughts of /Suicide Judgement: Fair Diagnostics Vital Signs (24Hr): Vital Signs - 24 hr 04/17/24 20:00 04/18/24 00:00 04/18/24 04:00 Temperature 97.5 F Pulse Rate 76 90 82 Respiratory Rate 16 16 16 Blood Pressure 141/67 H 138/82 132/88 Pulse Oximetry 97 96 Oxygen Delivery Method Room Air Room Air 04/18/24 08:21 Temperature 99.5 F Pulse Rate 70 Respiratory Rate 16 Blood Pressure 129/60 Pulse Oximetry 97 Oxygen Delivery Method Room Air BMI result Body Mass Index 21.2 EKG EKG: reviewed (qtc ok 415) Medications Medications Current Medications Acetaminophen (Acetaminophen 325 Mg Tablet) 650 mg PO Q6H PRN PRN Reason: Headache/Pain Mild Scale (1-3) Last Admin: 04/18/24 08:30 Dose: 650 mg Al Hydroxide/Mg Hydroxide (Magnesium Hydrox/Alum Hydrox 30 Ml Oral.Susp) 30 ml PO Q6H PRN PRN Reason: Heartburn/Nausea Buprenorphine/Naloxone (Buprenorphine/Naloxone 8/2 Mg Film) 1 film SUBLINGUAL DAILY [facility] Last Admin: 04/18/24 08:53 Dose: 1 film Bupropion HCl (Bupropion Hcl Xl 150 Mg Tab.Er.24h) 450 mg PO DAILY [facility] Last Admin: 04/18/24 08:27 Dose: 450 mg Buspirone HCl (Buspirone Hcl 5 Mg Tablet) 15 mg PO TID [facility] Last Admin: 04/18/24 08:26 Dose: 15 mg Folic Acid (Folic Acid 1 Mg Tablet) 1 mg PO DAILY [facility] Last Admin: 04/18/24 08:27 Dose: 1 mg Gabapentin (Gabapentin 600 Mg Tablet) 600 mg PO TID [facility] Last Admin: 04/18/24 08:27 Dose: 600 mg Hydroxyzine HCl (Hydroxyzine Hcl 25 Mg Tablet) 25 mg PO Q6H PRN PRN Reason: Anxiety Last Admin: 04/17/24 05:03 Dose: 25 mg Lorazepam (Lorazepam 1 Mg Tablet) 1 mg PO Q2H PRN PRN Reason: CIWA 6-10 Last Admin: 04/16/24 12:40 Dose: 1 mg Lorazepam (Lorazepam 1 Mg Tablet) 2 mg PO Q2H PRN PRN Reason: CIWA 11 and above Last Admin: 04/14/24 21:16 Dose: 2 mg Lorazepam (Lorazepam 1 Mg Tablet) 1 mg PO BID [facility] Last Admin: 04/18/24 08:27 Dose: 1 mg Magnesium Hydroxide (Milk Of Magnesia 30 Ml Oral.Susp) 30 ml PO DAILY PRN PRN Reason: Constipation Melatonin (Melatonin 3 Mg Tablet) 9 mg PO BEDTIME PRN PRN Reason: insomnia Last Admin: 04/16/24 20:59 Dose: 9 mg Multivitamins/Vitamin C (Multivitamin Tablet) 1 tab PO DAILY [facility] Last Admin: 04/18/24 08:27 Dose: 1 tab Nicotine (Nicotine 21 Mg Patch.Td24) 21 mg TRANSDERMA DAILY PRN PRN Reason: Nicotine Cravings Last Admin: 04/18/24 08:32 Dose: 21 mg Nicotine Polacrilex (Nicotine Polacrilex 2 Mg Gum) 4 mg BUCCAL Q2H PRN PRN Reason: Nicotine Cravings Last Admin: 04/18/24 08:53 Dose: 4 mg Olanzapine (Olanzapine 5 Mg Tablet) 5 mg PO Q4H PRN PRN Reason: agitation Prazosin HCl (Prazosin Hcl 1 Mg Capsule) 2 mg PO BEDTIME [facility]; Protocol Last Admin: 04/17/24 22:14 Dose: 2 mg Quetiapine Fumarate (Quetiapine Fumarate 300 Mg Tablet) 300 mg PO BEDTIME [facility] Last Admin: 04/17/24 22:14 Dose: 300 mg Thiamine HCl (Thiamine Hcl 100 Mg Tablet) 100 mg PO DAILY [facility] Last Admin: 04/18/24 08:27 Dose: 100 mg Trimethoprim/Sulfamethoxazole (Sulfamethox/Trimeth 800/160 Tablet) 1 tab PO BID [facility] Stop: 04/20/24 09:01 Last Admin: 04/18/24 08:27 Dose: 1 tab Allergies Allergies Allergy/AdvReac Type Severity Reaction Status Date / Time ibuprofen [IBUPROFEN] Allergy Unknown RASH Verified 01/21/24 02:40 henderson peppers Allergy Hives Uncoded 08/23/22 14:47 Assessment & Plan Assessment & Plan (1) Schizoaffective disorder: Status: Acute Code(s): F25.9 - Schizoaffective disorder, unspecified (2) Opioid dependence: Status: Acute Code(s): F11.20 - Opioid dependence, uncomplicated (3) Polysubstance use disorder: Status: Acute Code(s): F19.90 - Other psychoactive substance use, unspecified, uncomplicated Plan Schizoaffective Disorder, Opiate Use Disorder, Polysubstance Use Disorder Plan: Admit, CV, 15 minute checks Collateral contacts Diagnostics as needed Medication re-evaluation Encourage full milieu Discharge planning 04/16: Adjust Suboxone dosing Olanzapine prn 04/17 - inc seroquel for sleep 300mg- continues deeply depressed and despondent- with si no plan here, some alcohol and drug cravings ? topamax ? accamprosate- though none problem main issue at this point 04/18 change melatonin to standing dos with seroquel 300mg, encouraged patient to work through grief/feelings- not to shut down or avoid- Patient educated on: medication risk/benefits and therapeutic strategies Informed Consent: understands and further education needed Reason for continued inpatient stay Substantial Risk for: harm to self and rapid decompensation Time Spent With Patient Time: Total time managing care of this patient today ____ minutes.
[2024-04-18] MEDS: OLANZapine 5 MG TABLET PO (18:35)
[2024-04-18] MEDS: hydrOXYzine HCL 25 MG TABLET PO (18:35)
[2024-04-18 19:41] VITALS: BP 108/57; PULSE 72; RESP 16; TEMP 36.2; O2SAT 98
[2024-04-18] MEDS: QUEtiapine Fumarate 300 MG TABLET PO (20:38)
[2024-04-18] MEDS: Prazosin HCL 1 MG CAPSULE 2 MG PO (20:39)
[2024-04-18] MEDS: Melatonin 3 MG TABLET 9 MG PO (20:39)
[2024-04-19] MEDS: LORazepam 1 MG TABLET PO ×2 (08:47→20:31)
[2024-04-19] MEDS: buPROPion HCl XL 150 MG TAB.ER.24H 450 MG PO (08:47)
[2024-04-19] MEDS: busPIRone HCl 5 MG TABLET 15 MG PO ×3 (08:48→20:31)
[2024-04-19] MEDS: Multivitamin TABLET 1 TAB PO (08:48)
[2024-04-19] MEDS: Sulfamethox/Trimeth 800/160 TABLET 1 TAB PO ×2 (08:49→20:31)
[2024-04-19] MEDS: Folic Acid 1 MG TABLET PO (08:49)
[2024-04-19] MEDS: Thiamine HCL 100 MG TABLET PO (08:49)
[2024-04-19] MEDS: Gabapentin 600 MG TABLET PO ×3 (08:49→20:31)
[2024-04-19] MEDS: Buprenorphine/Naloxone 8/2 mg FILM 1 FILM SUBLINGUAL (09:14)
[2024-04-19 09:16] VITALS: BP 107/57; PULSE 82; TEMP 36.7; O2SAT 996
--- NOTE | 2024-04-19 15:43 | P.PNPSI_ITS ---
Subjective Subjective Date of Service: 04/19/24 Reason For Visit: Schizoaffective Disorder, Opiate use disorder Subjective Notes: Conditional Voluntary Healthcare Proxy: No Guardianship: No Medical Problems Affecting Mental Status: No Interim History: Max remains isolative for the most part, spending much time in bed. Reports I just don't want to talk about it, I can't manage it you know. Denies sx of opiate withdrawal, remains unsure of what he would like to do for longer term treatment. Declines offer to review for medication changes. Medication Compliance: Yes Side effects from medications: No Attending Groups: No Review of Systems Acute medical concerns: No Medical Review of Systems: unchanged Review of Systems Review of Systems Denies Yes all other systems are reviewed and are negative and Unobtainable due to mental status Mental Status Exam Mental Status Exam Narrative: Withdrawn, alert, in bed, responds to questions with minimal interaction and engagement. Speech is soft, slow. Mood is depressed, anergic, affect is flat. Thought process and content are without perceptual alterations, delusions. Denies sx of paranoia Reports feeling overwhelmed with grief, not knowing where to start, not having energy to start Diagnostics Vital Signs (24Hr): Vital Signs - 24 hr 04/18/24 19:41 04/19/24 09:16 Temperature 97.2 F 98.0 F Pulse Rate 72 82 Respiratory Rate 16 Blood Pressure 108/57 L 107/57 L Pulse Oximetry 98 996 H Oxygen Delivery Method Room Air Room Air BMI result Body Mass Index 21.2 Medications Medications Current Medications Acetaminophen (Acetaminophen 325 Mg Tablet) 650 mg PO Q6H PRN PRN Reason: Headache/Pain Mild Scale (1-3) Last Admin: 04/18/24 08:30 Dose: 650 mg Al Hydroxide/Mg Hydroxide (Magnesium Hydrox/Alum Hydrox 30 Ml Oral.Susp) 30 ml PO Q6H PRN PRN Reason: Heartburn/Nausea Buprenorphine/Naloxone (Buprenorphine/Naloxone 8/2 Mg Film) 1 film SUBLINGUAL DAILY [facility] Last Admin: 04/19/24 09:14 Dose: 1 film Bupropion HCl (Bupropion Hcl Xl 150 Mg Tab.Er.24h) 450 mg PO DAILY [facility] Last Admin: 04/19/24 08:47 Dose: 450 mg Buspirone HCl (Buspirone Hcl 5 Mg Tablet) 15 mg PO TID [facility] Last Admin: 04/19/24 15:24 Dose: 15 mg Folic Acid (Folic Acid 1 Mg Tablet) 1 mg PO DAILY [facility] Last Admin: 04/19/24 08:49 Dose: 1 mg Gabapentin (Gabapentin 600 Mg Tablet) 600 mg PO TID [facility] Last Admin: 04/19/24 15:24 Dose: 600 mg Hydroxyzine HCl (Hydroxyzine Hcl 25 Mg Tablet) 25 mg PO Q6H PRN PRN Reason: Anxiety Last Admin: 04/18/24 18:35 Dose: 25 mg Lorazepam (Lorazepam 1 Mg Tablet) 1 mg PO Q2H PRN PRN Reason: CIWA 6-10 Last Admin: 04/18/24 15:36 Dose: 1 mg Lorazepam (Lorazepam 1 Mg Tablet) 1 mg PO BID [facility] Last Admin: 04/19/24 08:47 Dose: 1 mg Magnesium Hydroxide (Milk Of Magnesia 30 Ml Oral.Susp) 30 ml PO DAILY PRN PRN Reason: Constipation Melatonin (Melatonin 3 Mg Tablet) 9 mg PO BEDTIME [facility] Last Admin: 04/18/24 20:39 Dose: 9 mg Multivitamins/Vitamin C (Multivitamin Tablet) 1 tab PO DAILY [facility] Last Admin: 04/19/24 08:48 Dose: 1 tab Nicotine (Nicotine 21 Mg Patch.Td24) 21 mg TRANSDERMA DAILY PRN PRN Reason: Nicotine Cravings Last Admin: 04/18/24 08:32 Dose: 21 mg Nicotine Polacrilex (Nicotine Polacrilex 2 Mg Gum) 4 mg BUCCAL Q2H PRN PRN Reason: Nicotine Cravings Last Admin: 04/18/24 17:46 Dose: 4 mg Olanzapine (Olanzapine 5 Mg Tablet) 5 mg PO Q4H PRN PRN Reason: agitation Last Admin: 04/18/24 18:35 Dose: 5 mg Prazosin HCl (Prazosin Hcl 1 Mg Capsule) 2 mg PO BEDTIME [facility]; Protocol Last Admin: 04/18/24 20:39 Dose: 2 mg Quetiapine Fumarate (Quetiapine Fumarate 300 Mg Tablet) 300 mg PO BEDTIME [facility] Last Admin: 04/18/24 20:38 Dose: 300 mg Thiamine HCl (Thiamine Hcl 100 Mg Tablet) 100 mg PO DAILY [facility] Last Admin: 04/19/24 08:49 Dose: 100 mg Trimethoprim/Sulfamethoxazole (Sulfamethox/Trimeth 800/160 Tablet) 1 tab PO BID [facility] Stop: 04/20/24 09:01 Last Admin: 04/19/24 08:49 Dose: 1 tab Allergies Allergies Allergy/AdvReac Type Severity Reaction Status Date / Time ibuprofen [IBUPROFEN] Allergy Unknown RASH Verified 01/21/24 02:40 henderson peppers Allergy Hives Uncoded 08/23/22 14:47 Assessment & Plan Assessment & Plan (1) Schizoaffective disorder: Status: Acute Code(s): F25.9 - Schizoaffective disorder, unspecified (2) Opioid dependence: Status: Acute Code(s): F11.20 - Opioid dependence, uncomplicated (3) Polysubstance use disorder: Status: Acute Code(s): F19.90 - Other psychoactive substance use, unspecified, uncomplicated Plan Schizoaffective Disorder, Opiate Use Disorder, Polysubstance Use Disorder Plan: Admit, CV, 15 minute checks Collateral contacts Diagnostics as needed Medication re-evaluation Encourage full milieu Discharge planning 04/16: Adjust Suboxone dosing Olanzapine prn 04/17 - inc seroquel for sleep 300mg- continues deeply depressed and despondent- with si no plan here, some alcohol and drug cravings ? topamax ? accamprosate- though none problem main issue at this point 04/18 change melatonin to standing dos with seroquel 300mg, encouraged patient to work through grief/feelings- not to shut down or avoid- 04/19-encourage pt to engage in milieu to begin to process grief. Reason for continued inpatient stay Substantial Risk for: rapid decompensation Time Spent With Patient Time: Total time managing care of this patient today ____ minutes.
[2024-04-19 19:38] VITALS: BP 117/70; PULSE 75; RESP 18; TEMP 37.4; O2SAT 98
[2024-04-19 20:30] VITALS: BP 117/70
[2024-04-19] MEDS: OLANZapine 5 MG TABLET PO (20:30)
[2024-04-19] MEDS: Melatonin 3 MG TABLET 9 MG PO (20:30)
[2024-04-19] MEDS: Prazosin HCL 1 MG CAPSULE 2 MG PO (20:30)
[2024-04-19] MEDS: Nicotine Polacrilex 2 MG GUM 4 MG BUCCAL (20:31)
[2024-04-19] MEDS: QUEtiapine Fumarate 300 MG TABLET PO (20:31)
[2024-04-20] MEDS: buPROPion HCl XL 150 MG TAB.ER.24H 450 MG PO (08:58)
[2024-04-20] MEDS: busPIRone HCl 5 MG TABLET 15 MG PO ×3 (08:58→20:10)
[2024-04-20] MEDS: Thiamine HCL 100 MG TABLET PO (08:59)
[2024-04-20] MEDS: LORazepam 1 MG TABLET PO ×2 (08:59→20:11)
[2024-04-20] MEDS: Gabapentin 600 MG TABLET PO ×3 (08:59→20:11)
[2024-04-20] MEDS: Multivitamin TABLET 1 TAB PO (08:59)
[2024-04-20] MEDS: Sulfamethox/Trimeth 800/160 TABLET 1 TAB PO (08:59)
[2024-04-20] MEDS: Folic Acid 1 MG TABLET PO (09:00)
[2024-04-20] MEDS: Buprenorphine/Naloxone 8/2 mg FILM 1 FILM SUBLINGUAL (09:00)
[2024-04-20] MEDS: Nicotine Polacrilex 2 MG GUM 4 MG BUCCAL ×2 (09:00→20:11)
[2024-04-20 09:38] VITALS: BP 135/62; PULSE 73; TEMP 36.9; O2SAT 96
--- NOTE | 2024-04-20 10:23 | PC.NURSE ---
Pt signed a 3 day notice on April 20 that will be up on April 26.
--- NOTE | 2024-04-20 18:44 | HO.PSYCHPN ---
Subjective Subjective Date of Service: 04/20/24 Reason For Visit: Schizoaffective Disorder, Opiate use disorder Subjective Notes: Conditional Voluntary and 3 Day Healthcare Proxy: No Guardianship: No Medical Problems Affecting Mental Status: No Interim History: Three day notice submitted. Pt expressing anger with himself. My daughter needs me and I just cannot sit here and not do anything. Reports he and ex- are considering living together again. Increased motivation with purpose observed today. Asks for referrals for out pt therapy, psychiatry, suboxone rx, grief counseling. My daughter needs me, I need to step up and be a dad. Medication Compliance: Yes Side effects from medications: No Attending Groups: No Review of Systems Acute medical concerns: No Medical Review of Systems: unchanged Review of Systems Review of Systems Denies Yes all other systems are reviewed and are negative Mental Status Exam Mental Status Exam Narrative: Alert, oriented, more engaged today. Speech clear Affect is constricted, mood depressed. Denies SI,HI, AH,VH No sx of thought process or content dysregulation. Pt has identified a purpose as daughter is grieving losses of family members. Pt wanting to be supportive. Diagnostics Vital Signs (24Hr): Vital Signs - 24 hr 04/19/24 19:38 04/19/24 20:30 04/20/24 09:38 Temperature 99.3 F 98.4 F Pulse Rate 75 73 Respiratory Rate 18 Blood Pressure 117/70 117/70 135/62 Pulse Oximetry 98 96 Oxygen Delivery Method Room Air Room Air BMI result Body Mass Index 21.2 Medications Medications Current Medications Acetaminophen (Acetaminophen 325 Mg Tablet) 650 mg PO Q6H PRN PRN Reason: Headache/Pain Mild Scale (1-3) Last Admin: 04/18/24 08:30 Dose: 650 mg Al Hydroxide/Mg Hydroxide (Magnesium Hydrox/Alum Hydrox 30 Ml Oral.Susp) 30 ml PO Q6H PRN PRN Reason: Heartburn/Nausea Buprenorphine/Naloxone (Buprenorphine/Naloxone 8/2 Mg Film) 1 film SUBLINGUAL DAILY [facility] Last Admin: 04/20/24 09:00 Dose: 1 film Bupropion HCl (Bupropion Hcl Xl 150 Mg Tab.Er.24h) 450 mg PO DAILY [facility] [place] Last Admin: 04/20/24 08:58 Dose: 450 mg Buspirone HCl (Buspirone Hcl 5 Mg Tablet) 15 mg PO TID [facility] [place] Last Admin: 04/20/24 14:41 Dose: 15 mg Folic Acid (Folic Acid 1 Mg Tablet) 1 mg PO DAILY [facility] Last Admin: 04/20/24 09:00 Dose: 1 mg Gabapentin (Gabapentin 600 Mg Tablet) 600 mg PO TID [facility] [place] Last Admin: 04/20/24 14:42 Dose: 600 mg Hydroxyzine HCl (Hydroxyzine Hcl 25 Mg Tablet) 25 mg PO Q6H PRN PRN Reason: Anxiety Last Admin: 04/18/24 18:35 Dose: 25 mg Lorazepam (Lorazepam 1 Mg Tablet) 1 mg PO Q2H PRN PRN Reason: CIWA 6-10 Last Admin: 04/18/24 15:36 Dose: 1 mg Lorazepam (Lorazepam 1 Mg Tablet) 1 mg PO BID [facility] [place] Last Admin: 04/20/24 08:59 Dose: 1 mg Magnesium Hydroxide (Milk Of Magnesia 30 Ml Oral.Susp) 30 ml PO DAILY PRN PRN Reason: Constipation Melatonin (Melatonin 3 Mg Tablet) 9 mg PO BEDTIME [facility] [place] Last Admin: 04/19/24 20:30 Dose: 9 mg Multivitamins/Vitamin C (Multivitamin Tablet) 1 tab PO DAILY [facility] [place] Last Admin: 04/20/24 08:59 Dose: 1 tab Nicotine (Nicotine 21 Mg Patch.Td24) 21 mg TRANSDERMA DAILY PRN PRN Reason: Nicotine Cravings Last Admin: 04/18/24 08:32 Dose: 21 mg Nicotine Polacrilex (Nicotine Polacrilex 2 Mg Gum) 4 mg BUCCAL Q2H PRN PRN Reason: Nicotine Cravings Last Admin: 04/20/24 09:00 Dose: 4 mg Olanzapine (Olanzapine 5 Mg Tablet) 5 mg PO Q4H PRN PRN Reason: agitation Last Admin: 04/19/24 20:30 Dose: 5 mg Prazosin HCl (Prazosin Hcl 1 Mg Capsule) 2 mg PO BEDTIME [facility] [place]; Protocol Last Admin: 04/19/24 20:30 Dose: 2 mg Quetiapine Fumarate (Quetiapine Fumarate 300 Mg Tablet) 300 mg PO BEDTIME [facility] [place] Last Admin: 04/19/24 20:31 Dose: 300 mg Thiamine HCl (Thiamine Hcl 100 Mg Tablet) 100 mg PO DAILY [facility] [place] Last Admin: 04/20/24 08:59 Dose: 100 mg Allergies Allergies Allergy/AdvReac Type Severity Reaction Status Date / Time ibuprofen [IBUPROFEN] Allergy Unknown RASH Verified 01/21/24 02:40 henderson peppers Allergy Hives Uncoded 08/23/22 14:47 Assessment & Plan Assessment & Plan (1) Schizoaffective disorder: Status: Acute Code(s): F25.9 - Schizoaffective disorder, unspecified (2) Opioid dependence: Status: Acute Code(s): F11.20 - Opioid dependence, uncomplicated (3) Polysubstance use disorder: Status: Acute Code(s): F19.90 - Other psychoactive substance use, unspecified, uncomplicated Plan Schizoaffective Disorder, Opiate Use Disorder, Polysubstance Use Disorder Plan: Admit, CV, 15 minute checks Collateral contacts Diagnostics as needed Medication re-evaluation Encourage full milieu Discharge planning 04/16: Adjust Suboxone dosing Olanzapine prn 04/17 - inc seroquel for sleep 300mg- continues deeply depressed and despondent- with si no plan here, some alcohol and drug cravings ? topamax ? accamprosate- though none problem main issue at this point 04/18 change melatonin to standing dos with seroquel 300mg, encouraged patient to work through grief/feelings- not to shut down or avoid- 04/20- TDN to Dec.2. Pt feeling more motivated to address issues as daughter is needing support with family losses. Reason for continued inpatient stay Substantial Risk for: rapid decompensation Time Spent With Patient Time: Total time managing care of this patient today ____ minutes.
[2024-04-20 20:00] VITALS: BP 149/81; PULSE 88; TEMP -13.7; TEMP 7.3; O2SAT 99
[2024-04-20] MEDS: Melatonin 3 MG TABLET 9 MG PO (20:10)
[2024-04-20 20:11] VITALS: BP 149/81
[2024-04-20] MEDS: QUEtiapine Fumarate 300 MG TABLET PO (20:11)
[2024-04-20] MEDS: Prazosin HCL 1 MG CAPSULE 2 MG PO (20:11)
--- NOTE | 2024-04-20 20:17 | PC.NURSE ---
When this telegraphic typewriter mechanic informed this patient that he would be woken at midnight for CIWA scoring, patient stated I don't need that. I'm a lot better now. Don't wake me up.
[2024-04-21 08:00] VITALS: BP 127/60; PULSE 63; RESP 16; TEMP 37.3; O2SAT 95
[2024-04-21] MEDS: busPIRone HCl 5 MG TABLET 15 MG PO ×3 (09:18→20:07)
[2024-04-21] MEDS: buPROPion HCl XL 150 MG TAB.ER.24H 450 MG PO (09:19)
[2024-04-21] MEDS: LORazepam 1 MG TABLET PO ×2 (09:19→16:20)
[2024-04-21] MEDS: Folic Acid 1 MG TABLET PO (09:19)
[2024-04-21] MEDS: Gabapentin 600 MG TABLET PO ×3 (09:19→20:07)
[2024-04-21] MEDS: Multivitamin TABLET 1 TAB PO (09:19)
[2024-04-21] MEDS: Buprenorphine/Naloxone 8/2 mg FILM 1 FILM SUBLINGUAL (09:19)
[2024-04-21] MEDS: Thiamine HCL 100 MG TABLET PO (09:19)
[2024-04-21] MEDS: Nicotine 21 MG PATCH.TD24 TRANSDERMA (09:28)
[2024-04-21] MEDS: Nicotine Polacrilex 2 MG GUM 4 MG BUCCAL ×2 (09:28→16:02)
--- NOTE | 2024-04-21 18:27 | P.PNPSI_ITS ---
Subjective Subjective Date of Service: 04/21/24 Reason For Visit: Schizoaffective Disorder, Opiate use disorder Subjective Notes: Conditional Voluntary and 3 Day Healthcare Proxy: No Guardianship: No Medical Problems Affecting Mental Status: No Interim History: Pt reports he is doing better today. TDN to 04/26. Declines medication changes, more interactive and participatory today in the milieu. I don't know if changing meds with do it, I just need to be a better father. Medication Compliance: Yes Side effects from medications: No Attending Groups: No Review of Systems Acute medical concerns: No Review of Systems Review of Systems Denies Mental Status Exam Mental Status Exam Narrative: Alert, oriented, more engaged today. Speech clear Affect is constricted, mood less depressed today Denies SI,HI, AH,VH No sx of thought process or content dysregulation. Pt has identified a purpose as daughter is grieving losses of family members. Pt wanting to be supportive. Diagnostics Vital Signs (24Hr): Vital Signs - 24 hr 04/20/24 20:00 04/20/24 20:11 04/21/24 08:00 Temperature 7.3 F L 99.1 F Pulse Rate 88 63 Respiratory Rate 16 Blood Pressure 149/81 H 149/81 H 127/60 Pulse Oximetry 99 95 Oxygen Delivery Method Room Air Room Air BMI result Body Mass Index 21.2 Medications Medications Current Medications Acetaminophen (Acetaminophen 325 Mg Tablet) 650 mg PO Q6H PRN PRN Reason: Headache/Pain Mild Scale (1-3) Last Admin: 04/18/24 08:30 Dose: 650 mg Al Hydroxide/Mg Hydroxide (Magnesium Hydrox/Alum Hydrox 30 Ml Oral.Susp) 30 ml PO Q6H PRN PRN Reason: Heartburn/Nausea Buprenorphine/Naloxone (Buprenorphine/Naloxone 8/2 Mg Film) 1 film SUBLINGUAL DAILY [facility] Last Admin: 04/21/24 09:19 Dose: 1 film Bupropion HCl (Bupropion Hcl Xl 150 Mg Tab.Er.24h) 450 mg PO DAILY [facility] Last Admin: 04/21/24 09:19 Dose: 450 mg Buspirone HCl (Buspirone Hcl 5 Mg Tablet) 15 mg PO TID [facility] Last Admin: 04/21/24 14:37 Dose: 15 mg Folic Acid (Folic Acid 1 Mg Tablet) 1 mg PO DAILY [facility] Last Admin: 04/21/24 09:19 Dose: 1 mg Gabapentin (Gabapentin 600 Mg Tablet) 600 mg PO TID [facility] Last Admin: 04/21/24 14:37 Dose: 600 mg Hydroxyzine HCl (Hydroxyzine Hcl 25 Mg Tablet) 25 mg PO Q6H PRN PRN Reason: Anxiety Last Admin: 04/18/24 18:35 Dose: 25 mg Lorazepam (Lorazepam 1 Mg Tablet) 1 mg PO Q2H PRN PRN Reason: CIWA 6-10 Last Admin: 04/18/24 15:36 Dose: 1 mg Lorazepam (Lorazepam 1 Mg Tablet) 1 mg PO BID@0900,1700 [facility] Last Admin: 04/21/24 16:20 Dose: 1 mg Magnesium Hydroxide (Milk Of Magnesia 30 Ml Oral.Susp) 30 ml PO DAILY PRN PRN Reason: Constipation Melatonin (Melatonin 3 Mg Tablet) 9 mg PO BEDTIME [facility] Last Admin: 04/20/24 20:10 Dose: 9 mg Multivitamins/Vitamin C (Multivitamin Tablet) 1 tab PO DAILY [facility] Last Admin: 04/21/24 09:19 Dose: 1 tab Nicotine (Nicotine 21 Mg Patch.Td24) 21 mg TRANSDERMA DAILY PRN PRN Reason: Nicotine Cravings Last Admin: 04/21/24 09:28 Dose: 21 mg Nicotine Polacrilex (Nicotine Polacrilex 2 Mg Gum) 4 mg BUCCAL Q2H PRN PRN Reason: Nicotine Cravings Last Admin: 04/21/24 16:02 Dose: 4 mg Olanzapine (Olanzapine 5 Mg Tablet) 5 mg PO Q4H PRN PRN Reason: agitation Last Admin: 04/19/24 20:30 Dose: 5 mg Prazosin HCl (Prazosin Hcl 1 Mg Capsule) 2 mg PO BEDTIME [facility]; Protocol Last Admin: 04/20/24 20:11 Dose: 2 mg Quetiapine Fumarate (Quetiapine Fumarate 300 Mg Tablet) 300 mg PO BEDTIME [facility] Last Admin: 04/20/24 20:11 Dose: 300 mg Thiamine HCl (Thiamine Hcl 100 Mg Tablet) 100 mg PO DAILY [facility] Last Admin: 04/21/24 09:19 Dose: 100 mg Allergies Allergies Allergy/AdvReac Type Severity Reaction Status Date / Time ibuprofen [IBUPROFEN] Allergy Unknown RASH Verified 01/21/24 02:40 henderson peppers Allergy Hives Uncoded 08/23/22 14:47 Assessment & Plan Assessment & Plan (1) Schizoaffective disorder: Status: Acute Code(s): F25.9 - Schizoaffective disorder, unspecified (2) Opioid dependence: Status: Acute Code(s): F11.20 - Opioid dependence, uncomplicated (3) Polysubstance use disorder: Status: Acute Code(s): F19.90 - Other psychoactive substance use, unspecified, uncomplicated Plan Schizoaffective Disorder, Opiate Use Disorder, Polysubstance Use Disorder Plan: Admit, CV, 15 minute checks Collateral contacts Diagnostics as needed Medication re-evaluation Encourage full milieu Discharge planning 04/16: Adjust Suboxone dosing Olanzapine prn 04/17 - inc seroquel for sleep 300mg- continues deeply depressed and despondent- with si no plan here, some alcohol and drug cravings ? topamax ? accamprosate- though none problem main issue at this point 04/18 change melatonin to standing dos with seroquel 300mg, encouraged patient to work through grief/feelings- not to shut down or avoid- 04/20- TDN to Dec.2. Pt feeling more motivated to address issues as daughter is needing support with family losses. 04/21- Continue plan of care. Reason for continued inpatient stay Substantial Risk for: rapid decompensation Time Spent With Patient Time: Total time managing care of this patient today ____ minutes.
[2024-04-21 20:00] VITALS: BP 130/68; PULSE 69; RESP 18; TEMP 37.3; O2SAT 97
[2024-04-21] MEDS: hydrOXYzine HCL 25 MG TABLET PO (20:06)
[2024-04-21 20:07] VITALS: BP 143/79
[2024-04-21] MEDS: QUEtiapine Fumarate 300 MG TABLET PO (20:07)
[2024-04-21] MEDS: Prazosin HCL 1 MG CAPSULE 2 MG PO (20:07)
[2024-04-21] MEDS: Melatonin 3 MG TABLET 9 MG PO (20:07)
[2024-04-22 07:00] VITALS: BMI 23.5
[2024-04-22] MEDS: Thiamine HCL 100 MG TABLET PO (08:36)
[2024-04-22] MEDS: LORazepam 1 MG TABLET PO ×2 (08:36→16:02)
[2024-04-22] MEDS: Multivitamin TABLET 1 TAB PO (08:36)
[2024-04-22] MEDS: Folic Acid 1 MG TABLET PO (08:36)
[2024-04-22] MEDS: Gabapentin 600 MG TABLET PO ×3 (08:36→20:05)
[2024-04-22] MEDS: buPROPion HCl XL 150 MG TAB.ER.24H 450 MG PO (08:36)
[2024-04-22] MEDS: Buprenorphine/Naloxone 8/2 mg FILM 1 FILM SUBLINGUAL (08:37)
[2024-04-22] MEDS: busPIRone HCl 5 MG TABLET 15 MG PO ×3 (08:37→20:01)
[2024-04-22 08:40] VITALS: BP 133/63; PULSE 73; RESP 16; TEMP 36.6; O2SAT 98
[2024-04-22] MEDS: Nicotine 21 MG PATCH.TD24 TRANSDERMA (08:43)
[2024-04-22] MEDS: Nicotine Polacrilex 2 MG GUM 4 MG BUCCAL ×2 (08:43→16:02)
--- NOTE | 2024-04-22 09:55 | P.PNPSI_ITS ---
Subjective Subjective Date of Service: 04/22/24 Reason For Visit: Schizoaffective Disorder, Opiate use disorder Interim History: Pt reports he is doing OK today. TDN to 04/26. Feels his depression and anxiety are improving getting there . Visible in the milieu. Denies SI/HI/AVH. No behavioral concerns. Review of Systems Review of Systems Denies Yes all other systems are reviewed and are negative and Unobtainable due to mental status Constitutional: Reports excessive sweating, Denies fever(s) and Reports headache(s) Eyes: Denies change in vision Reports headache(s), Denies nasal congestion, Denies nasal discharge and Denies sore throat Cardiovascular: Denies chest pain, Denies rapid heart rate, Denies lightheadedne ss and Denies dyspnea Respiratory: Denies chest congestion, Denies cough and Denies dyspnea Gastrointestinal: Reports nausea and Denies vomiting Skin/Breast: Reports as per HPI Reports headache(s) Psychiatric: Reports as per HPI Endocrine: Reports excessive sweating Mental Status Exam Mental Status Exam Narrative: Alert, oriented, more engaged today. Speech clear Affect is constricted, mood less depressed today Denies SI,HI, AH,VH No sx of thought process or content dysregulation. Pt has identified a purpose as daughter is grieving losses of family members. Pt wanting to be supportive. Patient Appearance: Well Grooomed and Appropriate Patient Orientation: Person, Place, Time and Situation Level of Consciousness: Awake Patient Behavior: Appropriate, Guarded and Cooperative Mood Description: Sad Affect Description: Withdrawn and Blunted Patient Cognition Impaired: No Ability to Follow Directions: Fair Speech Pattern: Impoverished and Poor Articulation Memory Description: Episodic Impaired Diagnostics Vital Signs (24Hr): Vital Signs - 24 hr 04/21/24 20:00 04/21/24 20:07 04/22/24 08:40 Temperature 99.2 F 97.8 F Pulse Rate 69 73 Respiratory Rate 18 16 Blood Pressure 130/68 143/79 H 133/63 Pulse Oximetry 97 98 Oxygen Delivery Method Room Air Room Air BMI result Body Mass Index 21.2 Medications Medications Current Medications Acetaminophen (Acetaminophen 325 Mg Tablet) 650 mg PO Q6H PRN PRN Reason: Headache/Pain Mild Scale (1-3) Last Admin: 04/18/24 08:30 Dose: 650 mg Al Hydroxide/Mg Hydroxide (Magnesium Hydrox/Alum Hydrox 30 Ml Oral.Susp) 30 ml PO Q6H PRN PRN Reason: Heartburn/Nausea Buprenorphine/Naloxone (Buprenorphine/Naloxone 8/2 Mg Film) 1 film SUBLINGUAL DAILY [facility] Last Admin: 04/22/24 08:37 Dose: 1 film Bupropion HCl (Bupropion Hcl Xl 150 Mg Tab.Er.24h) 450 mg PO DAILY [facility] Last Admin: 04/22/24 08:36 Dose: 450 mg Buspirone HCl (Buspirone Hcl 5 Mg Tablet) 15 mg PO TID [facility] Last Admin: 04/22/24 08:37 Dose: 15 mg Folic Acid (Folic Acid 1 Mg Tablet) 1 mg PO DAILY [facility] Last Admin: 04/22/24 08:36 Dose: 1 mg Gabapentin (Gabapentin 600 Mg Tablet) 600 mg PO TID [facility] Last Admin: 04/22/24 08:36 Dose: 600 mg Hydroxyzine HCl (Hydroxyzine Hcl 25 Mg Tablet) 25 mg PO Q6H PRN PRN Reason: Anxiety Last Admin: 04/21/24 20:06 Dose: 25 mg Lorazepam (Lorazepam 1 Mg Tablet) 1 mg PO Q2H PRN PRN Reason: CIWA 6-10 Last Admin: 04/18/24 15:36 Dose: 1 mg Lorazepam (Lorazepam 1 Mg Tablet) 1 mg PO BID@0900,1700 [facility] Last Admin: 04/22/24 08:36 Dose: 1 mg Magnesium Hydroxide (Milk Of Magnesia 30 Ml Oral.Susp) 30 ml PO DAILY PRN PRN Reason: Constipation Melatonin (Melatonin 3 Mg Tablet) 9 mg PO BEDTIME [facility] Last Admin: 04/21/24 20:07 Dose: 9 mg Multivitamins/Vitamin C (Multivitamin Tablet) 1 tab PO DAILY [facility] Last Admin: 04/22/24 08:36 Dose: 1 tab Nicotine (Nicotine 21 Mg Patch.Td24) 21 mg TRANSDERMA DAILY PRN PRN Reason: Nicotine Cravings Last Admin: 04/22/24 08:43 Dose: 21 mg Nicotine Polacrilex (Nicotine Polacrilex 2 Mg Gum) 4 mg BUCCAL Q2H PRN PRN Reason: Nicotine Cravings Last Admin: 04/22/24 08:43 Dose: 4 mg Olanzapine (Olanzapine 5 Mg Tablet) 5 mg PO Q4H PRN PRN Reason: agitation Last Admin: 04/19/24 20:30 Dose: 5 mg Prazosin HCl (Prazosin Hcl 1 Mg Capsule) 2 mg PO BEDTIME [facility]; Protocol Last Admin: 04/21/24 20:07 Dose: 2 mg Quetiapine Fumarate (Quetiapine Fumarate 300 Mg Tablet) 300 mg PO BEDTIME [facility] Last Admin: 04/21/24 20:07 Dose: 300 mg Thiamine HCl (Thiamine Hcl 100 Mg Tablet) 100 mg PO DAILY [facility] Last Admin: 04/22/24 08:36 Dose: 100 mg Allergies Allergies Allergy/AdvReac Type Severity Reaction Status Date / Time ibuprofen [IBUPROFEN] Allergy Unknown RASH Verified 01/21/24 02:40 henderson peppers Allergy Hives Uncoded 08/23/22 14:47 Assessment & Plan Assessment & Plan (1) Schizoaffective disorder: Status: Acute Code(s): F25.9 - Schizoaffective disorder, unspecified (2) Opioid dependence: Status: Acute Code(s): F11.20 - Opioid dependence, uncomplicated (3) Polysubstance use disorder: Status: Acute Code(s): F19.90 - Other psychoactive substance use, unspecified, uncomplicated Plan Schizoaffective Disorder, Opiate Use Disorder, Polysubstance Use Disorder Plan: Admit, CV, 15 minute checks Collateral contacts Diagnostics as needed Medication re-evaluation Encourage full milieu Discharge planning 04/16: Adjust Suboxone dosing Olanzapine prn 04/17 - inc seroquel for sleep 300mg- continues deeply depressed and despondent- with si no plan here, some alcohol and drug cravings ? topamax ? accamprosate- though none problem main issue at this point 04/18 change melatonin to standing dos with seroquel 300mg, encouraged patient to work through grief/feelings- not to shut down or avoid- 04/20- TDN to Dec.2. Pt feeling more motivated to address issues as daughter is needing support with family losses. 04/21- Continue plan of care. 04/22: Continue current management and treatment plan and monitoring response to medication adjustment. Reason for continued inpatient stay Substantial Risk for: harm to self, inability to function and rapid decompensation Time Spent With Patient Time: Total time managing care of this patient today ____ minutes.
[2024-04-22 20:00] VITALS: BP 126/62; PULSE 80; O2SAT 98
[2024-04-22 20:04] VITALS: BP 126/67
[2024-04-22] MEDS: Prazosin HCL 1 MG CAPSULE 2 MG PO (20:04)
[2024-04-22] MEDS: QUEtiapine Fumarate 300 MG TABLET PO (20:05)
[2024-04-22] MEDS: Melatonin 3 MG TABLET 9 MG PO (20:06)
[2024-04-22 21:05] VITALS: BP 126/66; PULSE 82; TEMP 37.3; O2SAT 98
[2024-04-23 08:00] VITALS: BP 121/76; PULSE 74; RESP 18; TEMP 36.8; O2SAT 97
[2024-04-23] MEDS: Multivitamin TABLET 1 TAB PO (08:17)
[2024-04-23] MEDS: Acetaminophen 325 MG TABLET 650 MG PO (08:17)
[2024-04-23] MEDS: Nicotine Polacrilex 2 MG GUM 4 MG BUCCAL ×3 (08:17→20:24)
[2024-04-23] MEDS: Gabapentin 600 MG TABLET PO ×3 (08:17→20:23)
[2024-04-23] MEDS: buPROPion HCl XL 150 MG TAB.ER.24H 450 MG PO (08:17)
[2024-04-23] MEDS: Folic Acid 1 MG TABLET PO (08:17)
[2024-04-23] MEDS: LORazepam 1 MG TABLET PO ×3 (08:17→20:22)
[2024-04-23] MEDS: busPIRone HCl 5 MG TABLET 15 MG PO ×3 (08:17→20:23)
[2024-04-23] MEDS: Thiamine HCL 100 MG TABLET PO (08:17)
[2024-04-23] MEDS: Buprenorphine/Naloxone 8/2 mg FILM 1 FILM SUBLINGUAL (08:50)
[2024-04-23] MEDS: Nicotine 21 MG PATCH.TD24 TRANSDERMA (08:50)
--- NOTE | 2024-04-23 15:02 | HO.PSYCHPN ---
Subjective Subjective Date of Service: 04/23/24 Reason For Visit: Schizoaffective Disorder, Opiate use disorder Subjective Notes: Conditional Voluntary and 3 Day (04/26/24) Healthcare Proxy: No Guardianship: No Medical Problems Affecting Mental Status: No Interim History: Max reports improvement. He continues with nightmares, reports he has trialed Prazosin for ~2 years with no benefit. Discussed Lorazapam dosing I want to be well so I can focus energy on my family. Thanksgiving was hard for me. Medication Compliance: Yes Side effects from medications: No Attending Groups: No Review of Systems Acute medical concerns: No Review of Systems Review of Systems Denies Mental Status Exam Mental Status Exam Narrative: Alert, oriented. Speech clear, Mood depressed, affect flat, but I am trying. Thought process and content without sx. Insight and Judgment are intact. Diagnostics Vital Signs (24Hr): Vital Signs - 24 hr 04/22/24 20:00 04/22/24 20:04 04/22/24 21:05 Temperature 99.1 F Pulse Rate 80 82 Respiratory Rate Blood Pressure 126/62 126/67 126/66 Pulse Oximetry 98 98 Oxygen Delivery Method Room Air Room Air 04/23/24 08:00 Temperature 98.2 F Pulse Rate 74 Respiratory Rate 18 Blood Pressure 121/76 Pulse Oximetry 97 Oxygen Delivery Method Room Air BMI result Body Mass Index 23.5 Medications Medications Current Medications Acetaminophen (Acetaminophen 325 Mg Tablet) 650 mg PO Q6H PRN PRN Reason: Headache/Pain Mild Scale (1-3) Last Admin: 04/23/24 08:17 Dose: 650 mg Al Hydroxide/Mg Hydroxide (Magnesium Hydrox/Alum Hydrox 30 Ml Oral.Susp) 30 ml PO Q6H PRN PRN Reason: Heartburn/Nausea Buprenorphine/Naloxone (Buprenorphine/Naloxone 8/2 Mg Film) 1 film SUBLINGUAL DAILY [facility] Last Admin: 04/23/24 08:50 Dose: 1 film Bupropion HCl (Bupropion Hcl Xl 150 Mg Tab.Er.24h) 450 mg PO DAILY [facility] Last Admin: 04/23/24 08:17 Dose: 450 mg Buspirone HCl (Buspirone Hcl 5 Mg Tablet) 15 mg PO TID [facility] Last Admin: 04/23/24 08:17 Dose: 15 mg Folic Acid (Folic Acid 1 Mg Tablet) 1 mg PO DAILY [facility] Last Admin: 04/23/24 08:17 Dose: 1 mg Gabapentin (Gabapentin 600 Mg Tablet) 600 mg PO TID [facility] Last Admin: 04/23/24 08:17 Dose: 600 mg Hydroxyzine HCl (Hydroxyzine Hcl 25 Mg Tablet) 25 mg PO Q6H PRN PRN Reason: Anxiety Last Admin: 04/21/24 20:06 Dose: 25 mg Lorazepam (Lorazepam 1 Mg Tablet) 1 mg PO Q2H PRN PRN Reason: CIWA 6-10 Last Admin: 04/18/24 15:36 Dose: 1 mg Lorazepam (Lorazepam 1 Mg Tablet) 1 mg PO BID@0900,1700 [facility] Last Admin: 04/23/24 08:17 Dose: 1 mg Magnesium Hydroxide (Milk Of Magnesia 30 Ml Oral.Susp) 30 ml PO DAILY PRN PRN Reason: Constipation Melatonin (Melatonin 3 Mg Tablet) 9 mg PO BEDTIME [facility] Last Admin: 04/22/24 20:06 Dose: 9 mg Multivitamins/Vitamin C (Multivitamin Tablet) 1 tab PO DAILY [facility] Last Admin: 04/23/24 08:17 Dose: 1 tab Nicotine (Nicotine 21 Mg Patch.Td24) 21 mg TRANSDERMA DAILY PRN PRN Reason: Nicotine Cravings Last Admin: 04/23/24 08:50 Dose: 21 mg Nicotine Polacrilex (Nicotine Polacrilex 2 Mg Gum) 4 mg BUCCAL Q2H PRN PRN Reason: Nicotine Cravings Last Admin: 04/23/24 08:17 Dose: 4 mg Olanzapine (Olanzapine 5 Mg Tablet) 5 mg PO Q4H PRN PRN Reason: agitation Last Admin: 04/19/24 20:30 Dose: 5 mg Prazosin HCl (Prazosin Hcl 1 Mg Capsule) 2 mg PO BEDTIME [facility]; Protocol Last Admin: 04/22/24 20:04 Dose: 2 mg Quetiapine Fumarate (Quetiapine Fumarate 300 Mg Tablet) 300 mg PO BEDTIME [facility] Last Admin: 04/22/24 20:05 Dose: 300 mg Thiamine HCl (Thiamine Hcl 100 Mg Tablet) 100 mg PO DAILY [facility] Last Admin: 04/23/24 08:17 Dose: 100 mg Allergies Allergies Allergy/AdvReac Type Severity Reaction Status Date / Time ibuprofen [IBUPROFEN] Allergy Unknown RASH Verified 01/21/24 02:40 henderson peppers Allergy Hives Uncoded 08/23/22 14:47 Assessment & Plan Assessment & Plan (1) Schizoaffective disorder: Status: Acute Code(s): F25.9 - Schizoaffective disorder, unspecified (2) Opioid dependence: Status: Acute Code(s): F11.20 - Opioid dependence, uncomplicated (3) Polysubstance use disorder: Status: Acute Code(s): F19.90 - Other psychoactive substance use, unspecified, uncomplicated Plan Schizoaffective Disorder, Opiate Use Disorder, Polysubstance Use Disorder Plan: Admit, CV, 15 minute checks Collateral contacts Diagnostics as needed Medication re-evaluation Encourage full milieu Discharge planning 04/16: Adjust Suboxone dosing Olanzapine prn 04/17 - inc seroquel for sleep 300mg- continues deeply depressed and despondent- with si no plan here, some alcohol and drug cravings ? topamax ? accamprosate- though none problem main issue at this point 04/18 change melatonin to standing dos with seroquel 300mg, encouraged patient to work through grief/feelings- not to shut down or avoid- 04/20- TDN to Dec.2. Pt feeling more motivated to address issues as daughter is needing support with family losses. 04/21- Continue plan of care. 04/22: Continue current management and treatment plan and monitoring response to medication adjustment. 04/23: Change Lorazapam to 1 mg 0900,1700,2100 [facility] Prazosin Clonidine 0.2 mg HS Risperdal 1 mg HS The above changes to assist with nightmare mgt. If not effective, ?CPZ Reason for continued inpatient stay Substantial Risk for: rapid decompensation Time Spent With Patient Time: Total time managing care of this patient today ____ minutes.
[2024-04-23 19:57] VITALS: BP 120/72; PULSE 78; TEMP 36.6; O2SAT 96
[2024-04-23] MEDS: QUEtiapine Fumarate 300 MG TABLET PO (20:22)
[2024-04-23] MEDS: Melatonin 3 MG TABLET 9 MG PO (20:22)
[2024-04-23] MEDS: cloNIDine HCL 0.2 MG TABLET PO (20:23)
[2024-04-23] MEDS: risperiDONE 1 MG TABLET PO (20:23)
[2024-04-24] MEDS: Folic Acid 1 MG TABLET PO (07:59)
[2024-04-24] MEDS: buPROPion HCl XL 150 MG TAB.ER.24H 450 MG PO (07:59)
[2024-04-24] MEDS: Multivitamin TABLET 1 TAB PO (07:59)
[2024-04-24] MEDS: Thiamine HCL 100 MG TABLET PO (07:59)
[2024-04-24] MEDS: LORazepam 1 MG TABLET PO ×3 (08:00→20:10)
[2024-04-24] MEDS: Gabapentin 600 MG TABLET PO ×3 (08:00→20:10)
[2024-04-24] MEDS: busPIRone HCl 5 MG TABLET 15 MG PO ×3 (08:00→20:10)
[2024-04-24 08:35] VITALS: BP 118/60; PULSE 68; RESP 18; TEMP 36.4; O2SAT 98
[2024-04-24] MEDS: Buprenorphine/Naloxone 8/2 mg FILM 1 FILM SUBLINGUAL (08:52)
--- NOTE | 2024-04-24 10:44 | HO.PSYCHPN ---
Subjective Subjective Date of Service: 04/24/24 Reason For Visit: Schizoaffective Disorder, Opiate use disorder Interim History: Patient continues to report improvement in his symptoms of depression since admission. He reports tolerating medications well and denies side effects. He denies SI/HI/AVH. Engaged in the milieu. Review of Systems Review of Systems Denies Yes all other systems are reviewed and are negative and Unobtainable due to mental status Constitutional: Reports excessive sweating, Denies fever(s) and Reports headache(s) Eyes: Denies change in vision Reports headache(s), Denies nasal congestion, Denies nasal discharge and Denies sore throat Cardiovascular: Denies chest pain, Denies rapid heart rate, Denies lightheadedness and Denies dyspnea Respiratory: Denies chest congestion, Denies cough and Denies dyspnea Gastrointestinal: Reports nausea and Denies vomiting Skin/Breast: Reports as per HPI Reports headache(s) Psychiatric: Reports as per HPI Endocrine: Reports excessive sweating Mental Status Exam Mental Status Exam Narrative: Alert, oriented. Speech clear, Mood depressed, affect flat, but I am trying. Thought process and content without sx. Insight and Judgment are intact. Patient Appearance: Well Grooomed and Appropriate Patient Orientation: Person, Place, Time and Situation Level of Consciousness: Awake Patient Behavior: Appropriate, Guarded and Cooperative Mood Description: Sad Affect Description: Withdrawn and Blunted Patient Cognition Impaired: No Ability to Follow Directions: Fair Speech Pattern: Impoverished and Poor Articulation Memory Description: Episodic Impaired Diagnostics Vital Signs (24Hr): Vital Signs - 24 hr 04/23/24 19:57 04/24/24 08:35 Temperature 97.9 F 97.6 F Pulse Rate 78 68 Respiratory Rate 18 Blood Pressure 120/72 118/60 Pulse Oximetry 96 98 Oxygen Delivery Method Room Air Room Air BMI result Body Mass Index 23.5 Medications Medications Current Medications Acetaminophen (Acetaminophen 325 Mg Tablet) 650 mg PO Q6H PRN PRN Reason: Headache/Pain Mild Scale (1-3) Last Admin: 04/23/24 08:17 Dose: 650 mg Al Hydroxide/Mg Hydroxide (Magnesium Hydrox/Alum Hydrox 30 Ml Oral.Susp) 30 ml PO Q6H PRN PRN Reason: Heartburn/Nausea Buprenorphine/Naloxone (Buprenorphine/Naloxone 8/2 Mg Film) 1 film SUBLINGUAL DAILY [facility] Last Admin: 04/24/24 08:52 Dose: 1 film Bupropion HCl (Bupropion Hcl Xl 150 Mg Tab.Er.24h) 450 mg PO DAILY [facility] Last Admin: 04/24/24 07:59 Dose: 450 mg Buspirone HCl (Buspirone Hcl 5 Mg Tablet) 15 mg PO TID [facility] Last Admin: 04/24/24 08:00 Dose: 15 mg Clonidine HCl (Clonidine Hcl 0.2 Mg Tablet) 0.2 mg PO BEDTIME [facility]; Protocol Last Admin: 04/23/24 20:23 Dose: 0.2 mg Folic Acid (Folic Acid 1 Mg Tablet) 1 mg PO DAILY [facility] Last Admin: 04/24/24 07:59 Dose: 1 mg Gabapentin (Gabapentin 600 Mg Tablet) 600 mg PO TID [facility] Last Admin: 04/24/24 08:00 Dose: 600 mg Hydroxyzine HCl (Hydroxyzine Hcl 25 Mg Tablet) 25 mg PO Q6H PRN PRN Reason: Anxiety Last Admin: 04/21/24 20:06 Dose: 25 mg Lorazepam (Lorazepam 1 Mg Tablet) 1 mg PO TID@0900,1700,2100 [facility] Last Admin: 04/24/24 08:00 Dose: 1 mg Magnesium Hydroxide (Milk Of Magnesia 30 Ml Oral.Susp) 30 ml PO DAILY PRN PRN Reason: Constipation Melatonin (Melatonin 3 Mg Tablet) 9 mg PO BEDTIME [facility] Last Admin: 04/23/24 20:22 Dose: 9 mg Multivitamins/Vitamin C (Multivitamin Tablet) 1 tab PO DAILY [facility] Last Admin: 04/24/24 07:59 Dose: 1 tab Nicotine (Nicotine 21 Mg Patch.Td24) 21 mg TRANSDERMA DAILY PRN PRN Reason: Nicotine Cravings Last Admin: 04/23/24 08:50 Dose: 21 mg Nicotine Polacrilex (Nicotine Polacrilex 2 Mg Gum) 4 mg BUCCAL Q2H PRN PRN Reason: Nicotine Cravings Last Admin: 04/23/24 20:24 Dose: 4 mg Olanzapine (Olanzapine 5 Mg Tablet) 5 mg PO Q4H PRN PRN Reason: agitation Last Admin: 04/19/24 20:30 Dose: 5 mg Quetiapine Fumarate (Quetiapine Fumarate 300 Mg Tablet) 300 mg PO BEDTIME [facility] Last Admin: 04/23/24 20:22 Dose: 300 mg Risperidone (Risperidone 1 Mg Tablet) 1 mg PO BEDTIME [facility] Last Admin: 04/23/24 20:23 Dose: 1 mg Thiamine HCl (Thiamine Hcl 100 Mg Tablet) 100 mg PO DAILY [facility] Last Admin: 04/24/24 07:59 Dose: 100 mg Allergies Allergies Allergy/AdvReac Type Severity Reaction Status Date / Time ibuprofen [IBUPROFEN] Allergy Unknown RASH Verified 01/21/24 02:40 henderson peppers Allergy Hives Uncoded 08/23/22 14:47 Assessment & Plan Assessment & Plan (1) Schizoaffective disorder: Status: Acute Code(s): F25.9 - Schizoaffective disorder, unspecified (2) Opioid dependence: Status: Acute Code(s): F11.20 - Opioid dependence, uncomplicated (3) Polysubstance use disorder: Status: Acute Code(s): F19.90 - Other psychoactive substance use, unspecified, uncomplicated Plan Schizoaffective Disorder, Opiate Use Disorder, Polysubstance Use Disorder Plan: Admit, CV, 15 minute checks Collateral contacts Diagnostics as needed Medication re-evaluation Encourage full milieu Discharge planning 04/16: Adjust Suboxone dosing Olanzapine prn 04/17 - inc seroquel for sleep 300mg- continues deeply depressed and despondent- with si no plan here, some alcohol and drug cravings ? topamax ? accamprosate- though none problem main issue at this point 04/18 change melatonin to standing dos with seroquel 300mg, encouraged patient to work through grief/feelings- not to shut down or avoid- 04/20- TDN to Dec.2. Pt feeling more motivated to address issues as daughter is needing support with family losses. 04/21- Continue plan of care. 04/22: Continue current management and treatment plan and monitoring response to medication adjustment. 04/23: Change Lorazapam to 1 mg 0900,1700,2100 [facility] Prazosin Clonidine 0.2 mg HS Risperdal 1 mg HS The above changes to assist with nightmare mgt. If not effective, ?CPZ 04/24: Continue current management and treatment plan. Reason for continued inpatient stay Substantial Risk for: harm to self, inability to function and rapid decompensation Time Spent With Patient Time: Total time managing care of this patient today ____ minutes.
[2024-04-24 20:00] VITALS: BP 116/72; PULSE 74; RESP 16; TEMP 36.3; O2SAT 98
[2024-04-24] MEDS: Nicotine Polacrilex 2 MG GUM 4 MG BUCCAL (20:09)
[2024-04-24 20:10] VITALS: BP 121/64
[2024-04-24] MEDS: Melatonin 3 MG TABLET 9 MG PO (20:10)
[2024-04-24] MEDS: QUEtiapine Fumarate 300 MG TABLET PO (20:10)
[2024-04-24] MEDS: cloNIDine HCL 0.2 MG TABLET PO (20:10)
[2024-04-24] MEDS: risperiDONE 1 MG TABLET PO (20:11)
--- NOTE | 2024-04-25 05:08 | PC.NURSE ---
Patient was quite upset when he asked for the Chex cereal brought in by a visitor and staff could not find it right away. It turned out that the bag containing the large box of Chex was in the staff coat closet. This life insurance underwriter let patient have some of his cereal and then placed the rest of the box with his belongings. At that time patient noticed his coat was put on a top shelf and his other belongings were 3 shelves below. Patient started to get upset and said If my coat is not with the rest of my belongings then how do I know my jewelry didn't get lost? This life insurance underwriter checked his belongings (without the patient watching) and noted that no jewelry was in any of his bags. The M5 belongings list did not list any jewelry either. Patient was a transfer from [facility]. Will alert staff here on M[facility] to check further on this matter.
[2024-04-25 08:13] VITALS: BP 112/62; PULSE 70; RESP 16; TEMP 36.4; O2SAT 97
[2024-04-25] MEDS: busPIRone HCl 5 MG TABLET 15 MG PO ×3 (08:37→20:02)
[2024-04-25] MEDS: Folic Acid 1 MG TABLET PO (08:37)
[2024-04-25] MEDS: Thiamine HCL 100 MG TABLET PO (08:37)
[2024-04-25] MEDS: Multivitamin TABLET 1 TAB PO (08:38)
[2024-04-25] MEDS: buPROPion HCl XL 150 MG TAB.ER.24H 450 MG PO (08:38)
[2024-04-25] MEDS: Buprenorphine/Naloxone 8/2 mg FILM 1 FILM SUBLINGUAL (08:38)
[2024-04-25] MEDS: LORazepam 1 MG TABLET PO ×3 (08:38→20:03)
[2024-04-25] MEDS: Gabapentin 600 MG TABLET PO ×3 (08:38→20:03)
[2024-04-25] MEDS: Nicotine Polacrilex 2 MG GUM 4 MG BUCCAL (09:13)
--- NOTE | 2024-04-25 09:15 | HO.PSYCHPN ---
Subjective Subjective Date of Service: 04/25/24 Reason For Visit: Schizoaffective Disorder, Opiate use disorder Interim History: Patient continues to report improvement in his symptoms of depression since admission. He reports tolerating medications well and denies side effects. Eager to be discharged soon. I am good to go . Had an insightful conversation with RN about his relationship with his ex. He denies SI/HI/AVH. Engaged in the milieu. Review of Systems Review of Systems Denies Yes all other systems are reviewed and are negative and Unobtainable due to mental status Constitutional: Reports excessive sweating, Denies fever(s) and Reports headache(s) Eyes: Denies change in vision Reports headache(s), Denies nasal congestion, Denies nasal discharge and Denies sore throat Cardiovascular: Denies chest pain, Denies rapid heart rate, Denies lightheadedness and Denies dyspnea Respiratory: Denies chest congestion, Denies cough and Denies dyspnea Gastrointestinal: Reports nausea and Denies vomiting Skin/Breast: Reports as per HPI Reports headache(s) Psychiatric: Reports as per HPI Endocrine: Reports excessive sweating Mental Status Exam Mental Status Exam Narrative: Alert, oriented. Speech clear, Mood depressed, affect flat, but I am trying. Thought process and content without sx. Insight and Judgment are intact. Patient Appearance: Well Grooomed and Appropriate Patient Orientation: Person, Place, Time and Situation Level of Consciousness: Awake Patient Behavior: Appropriate, Guarded and Cooperative Mood Description: Sad Affect Description: Withdrawn and Blunted Patient Cognition Impaired: No Ability to Follow Directions: Fair Speech Pattern: Impoverished and Poor Articulation Memory Description: Episodic Impaired Diagnostics Vital Signs (24Hr): Vital Signs - 24 hr 04/24/24 20:00 04/24/24 20:10 04/25/24 08:13 Temperature 97.4 F 97.5 F Pulse Rate 74 70 Respiratory Rate 16 16 Blood Pressure 116/72 121/64 112/62 Pulse Oximetry 98 97 Oxygen Delivery Method Room Air Room Air BMI result Body Mass Index 23.5 Medications Medications Current Medications Acetaminophen (Acetaminophen 325 Mg Tablet) 650 mg PO Q6H PRN PRN Reason: Headache/Pain Mild Scale (1-3) Last Admin: 04/23/24 08:17 Dose: 650 mg Al Hydroxide/Mg Hydroxide (Magnesium Hydrox/Alum Hydrox 30 Ml Oral.Susp) 30 ml PO Q6H PRN PRN Reason: Heartburn/Nausea Buprenorphine/Naloxone (Buprenorphine/Naloxone 8/2 Mg Film) 1 film SUBLINGUAL DAILY [facility] Last Admin: 04/25/24 08:38 Dose: 1 film Bupropion HCl (Bupropion Hcl Xl 150 Mg Tab.Er.24h) 450 mg PO DAILY [facility] Last Admin: 04/25/24 08:38 Dose: 450 mg Buspirone HCl (Buspirone Hcl 5 Mg Tablet) 15 mg PO TID [facility] Last Admin: 04/25/24 08:37 Dose: 15 mg Clonidine HCl (Clonidine Hcl 0.2 Mg Tablet) 0.2 mg PO BEDTIME [facility]; Protocol Last Admin: 04/24/24 20:10 Dose: 0.2 mg Folic Acid (Folic Acid 1 Mg Tablet) 1 mg PO DAILY [facility] Last Admin: 04/25/24 08:37 Dose: 1 mg Gabapentin (Gabapentin 600 Mg Tablet) 600 mg PO TID [facility] Last Admin: 04/25/24 08:38 Dose: 600 mg Hydroxyzine HCl (Hydroxyzine Hcl 25 Mg Tablet) 25 mg PO Q6H PRN PRN Reason: Anxiety Last Admin: 04/21/24 20:06 Dose: 25 mg Lorazepam (Lorazepam 1 Mg Tablet) 1 mg PO TID@0900,1700,2100 [facility] Last Admin: 04/25/24 08:38 Dose: 1 mg Magnesium Hydroxide (Milk Of Magnesia 30 Ml Oral.Susp) 30 ml PO DAILY PRN PRN Reason: Constipation Melatonin (Melatonin 3 Mg Tablet) 9 mg PO BEDTIME [facility] Last Admin: 04/24/24 20:10 Dose: 9 mg Multivitamins/Vitamin C (Multivitamin Tablet) 1 tab PO DAILY [facility] Last Admin: 04/25/24 08:38 Dose: 1 tab Nicotine (Nicotine 21 Mg Patch.Td24) 21 mg TRANSDERMA DAILY PRN PRN Reason: Nicotine Cravings Last Admin: 04/23/24 08:50 Dose: 21 mg Nicotine Polacrilex (Nicotine Polacrilex 2 Mg Gum) 4 mg BUCCAL Q2H PRN PRN Reason: Nicotine Cravings Last Admin: 04/24/24 20:09 Dose: 4 mg Olanzapine (Olanzapine 5 Mg Tablet) 5 mg PO Q4H PRN PRN Reason: agitation Last Admin: 04/19/24 20:30 Dose: 5 mg Quetiapine Fumarate (Quetiapine Fumarate 300 Mg Tablet) 300 mg PO BEDTIME [facility] Last Admin: 04/24/24 20:10 Dose: 300 mg Risperidone (Risperidone 1 Mg Tablet) 1 mg PO BEDTIME [facility] Last Admin: 04/24/24 20:11 Dose: 1 mg Thiamine HCl (Thiamine Hcl 100 Mg Tablet) 100 mg PO DAILY [facility] Last Admin: 04/25/24 08:37 Dose: 100 mg Allergies Allergies Allergy/AdvReac Type Severity Reaction Status Date / Time ibuprofen [IBUPROFEN] Allergy Unknown RASH Verified 01/21/24 02:40 henderson peppers Allergy Hives Uncoded 08/23/22 14:47 Assessment & Plan Assessment & Plan (1) Schizoaffective disorder: Status: Acute Code(s): F25.9 - Schizoaffective disorder, unspecified (2) Opioid dependence: Status: Acute Code(s): F11.20 - Opioid dependence, uncomplicated (3) Polysubstance use disorder: Status: Acute Code(s): F19.90 - Other psychoactive substance use, unspecified, uncomplicated Plan Schizoaffective Disorder, Opiate Use Disorder, Polysubstance Use Disorder Plan: Admit, CV, 15 minute checks Collateral contacts Diagnostics as needed Medication re-evaluation Encourage full milieu Discharge planning 04/16: Adjust Suboxone dosing Olanzapine prn 04/17 - inc seroquel for sleep 300mg- continues deeply depressed and despondent- with si no plan here, some alcohol and drug cravings ? topamax ? accamprosate- though none problem main issue at this point 04/18 change melatonin to standing dos with seroquel 300mg, encouraged patient to work through grief/feelings- not to shut down or avoid- 04/20- TDN to Dec.2. Pt feeling more motivated to address issues as daughter is needing support with family losses. 04/21- Continue plan of care. 04/22: Continue current management and treatment plan and monitoring response to medication adjustment. 04/23: Change Lorazapam to 1 mg 0900,1700,2100 DC Prazosin Clonidine 0.2 mg HS Risperdal 1 mg HS The above changes to assist with nightmare mgt. If not effective, ?CPZ 04/24: Continue current management and treatment plan. 04/25: Continue current management and treatment plan. TDN expires 04/26. Reason for continued inpatient stay Substantial Risk for: inability to function and rapid decompensation Time Spent With Patient Time: Total time managing care of this patient today ____ minutes.
[2024-04-25 20:00] VITALS: BP 127/66; PULSE 61; RESP 15; O2SAT 97
[2024-04-25] MEDS: Melatonin 3 MG TABLET 9 MG PO (20:03)
[2024-04-25] MEDS: cloNIDine HCL 0.2 MG TABLET PO (20:03)
[2024-04-25] MEDS: risperiDONE 1 MG TABLET PO (20:03)
[2024-04-25] MEDS: QUEtiapine Fumarate 300 MG TABLET PO (20:03)
[2024-04-26 08:18] VITALS: BP 131/61; PULSE 76; O2SAT 76
[2024-04-26] MEDS: Folic Acid 1 MG TABLET PO (08:33)
[2024-04-26] MEDS: Thiamine HCL 100 MG TABLET PO (08:34)
[2024-04-26] MEDS: Gabapentin 600 MG TABLET PO (08:34)
[2024-04-26] MEDS: Multivitamin TABLET 1 TAB PO (08:34)
[2024-04-26] MEDS: busPIRone HCl 5 MG TABLET 15 MG PO (08:34)
[2024-04-26] MEDS: LORazepam 1 MG TABLET PO (08:34)
[2024-04-26] MEDS: buPROPion HCl XL 150 MG TAB.ER.24H 450 MG PO (08:34)
[2024-04-26] MEDS: Buprenorphine/Naloxone 8/2 mg FILM 1 FILM SUBLINGUAL (08:37)
[2024-04-26] MEDS: Nicotine Polacrilex 2 MG GUM 4 MG BUCCAL (08:38)
--- NOTE | 2024-04-26 10:17 | PM.PSYDC ---
DS: Providers Provider Date of admission: 04/14/24 15:45 Primary care physician: None Physician Consults: 04/14/24 16:37 Consult to Hospitalist Routine Comment: Consulting Provider: [facility] [place] [facility] Reason For Exam: admission physical; look at left great toe 04/14/24 19:45 Addiction Medicine Routine Consulting Provider: Addiction Covering Reason for consultation: ETOH, cocaine, and heroin DS: Diagnosis Discharge Diagnosis (1) Schizoaffective disorder: Status: Acute (2) Opioid dependence: Status: Acute (3) Polysubstance use disorder: Status: Acute DS: Medications Discharge Medications Home Medications: Previous Rx's ?Medication ?Instructions ?Recorded buprenorphine 8 mg-naloxone 2 mg 1 film sublingual DAILY #2 ea 04/26/24 sublingual film (Suboxone) bupropion HCl 150 mg 24 hr tablet, 450 mg (3 x 150 mg) PO DAILY #90 04/26/24 extended release tabs bupropion HCl 150 mg 24 hr tablet, 150 mg PO QAM #30 tabs 04/26/24 extended release (Wellbutrin XL) bupropion HCl 300 mg 24 hr tablet, 300 mg PO QAM #30 tabs 04/26/24 extended release (Wellbutrin XL) buspirone 15 mg tablet 15 mg PO TID #90 tabs 04/26/24 clonidine HCl 0.2 mg tablet 0.2 mg PO BEDTIME #30 tabs 04/26/24 folic acid 1 mg tablet 1 mg PO DAILY #30 tabs 04/26/24 gabapentin 600 mg tablet 600 mg PO TID #9 tabs 04/26/24 lorazepam 0.5 mg tablet 0.5 mg PO TID #6 tabs 04/26/24 melatonin 10 mg capsule 10 mg PO BEDTIME PRN insomnia #30 04/26/24 caps multivitamin (Daily-Bassam tablet) 1 tab PO DAILY #30 tabs 04/26/24 nicotine (polacrilex) 2 mg gum 4 mg buccal Q2H PRN Nicotine 04/26/24 Cravings #110 ea nicotine 21 mg/24 hr daily 21 mg transdermal DAILY PRN 04/26/24 transdermal patch Nicotine Cravings #3 ea quetiapine 300 mg tablet 300 mg PO BEDTIME #30 tabs 04/26/24 risperidone 1 mg tablet 1 mg PO BEDTIME #30 tabs 12/02/24 thiamine mononitrate (vit B1) 100 100 mg PO DAILY #30 tabs 04/26/24 mg tablet DS: Summary Time Spent with Patient Time attestation: Total time managing care of this patient today ____ minutes. Discharge Plan Discharge Anticipated Discharge Date/Time: 04/26/24 12:00 Patient Disposition: Home, Self-Care Discharge Diagnosis: Schizoaffective Disorder Opiate Use Disorder Polysubstance Use Disorder Referrals: [facility] [Other] - 05/03/24 (If you have not heard from [facility] in one week please call provided number for your appointments or go to the [facility] walk-in at [address], [place], [place]) [facility] ([facility]) [Other] - 1 Week (Friday, Friday, Friday 9AM?5PM Friday 9AM?3PM 9AM?7PM Friday and Friday Closed ) Physician,None [Primary Care Provider] - 1 Week Discharge Medications: New multivitamin [Daily-Bassam] Tablet 1 tab PO DAILY Qty: 30 0RF quetiapine 300 mg Tablet 300 mg PO BEDTIME Qty: 30 0RF clonidine HCl 0.2 mg Tablet 0.2 mg PO BEDTIME Qty: 30 0RF Protocol: Hold for SBP< HOLD for SBP < : 90 folic acid 1 mg Tablet 1 mg PO DAILY Qty: 30 0RF risperidone 1 mg Tablet 1 mg PO BEDTIME Qty: 30 0RF bupropion HCl 150 mg Tablet Extended Release 24 Hr 450 mg PO DAILY Qty: 90 0RF thiamine mononitrate (vit B1) 100 mg Tablet 100 mg PO DAILY Qty: 30 0RF buprenorphine-naloxone [Suboxone] 8-2 mg Film 1 film sublingual DAILY Qty: 2 0RF lorazepam 0.5 mg tablet 0.5 mg PO TID Qty: 6 0RF Rx Instructions: Taper- Take 0.5 mg three times daily on 04/27/24 Take 0.5 mg twice daily on 04/28/24 Take 0.5 mg daily on 04/29/24 bupropion HCl [Wellbutrin XL] 300 mg tablet extended release 24 hr 300 mg PO QAM Qty: 30 0RF Rx Instructions: 450 mg XL daily bupropion HCl [Wellbutrin XL] 150 mg tablet extended release 24 hr 150 mg PO QAM Qty: 30 0RF Rx Instructions: 450 mg XL daily buspirone 15 mg tablet 15 mg PO TID Qty: 90 0RF Continued gabapentin 600 mg Tablet 600 mg PO TID Qty: 9 0RF nicotine (polacrilex) 2 mg Gum 4 mg buccal Q2H PRN (Reason: Nicotine Cravings) Qty: 110 0RF melatonin 10 mg capsule 10 mg PO BEDTIME PRN (Reason: insomnia) Qty: 30 0RF Changed nicotine 21 mg/24 hr patch 24 hour 21 mg transdermal DAILY PRN (Reason: Nicotine Cravings) Qty: 3 0RF Discontinued buspirone 15 mg tablet 15 mg PO TID Qty: 90 0RF bupropion HCl 150 mg tablet extended release 24 hr 450 mg PO DAILY Qty: 90 0RF quetiapine 200 mg Tablet 200 mg PO BEDTIME prazosin 2 mg Capsule 2 mg PO BEDTIME buprenorphine-naloxone [Suboxone] 8-2 mg Film 1 film BUCCAL BID Discharge Orders: Discharge Order (Routine); Ordered 04/26/24 Ordered By: Adriana Rodriguez Diet: Advance to usual diet Activity on Discharge: As tolerated Stand Alone Forms: Patient Portal Discharge page Print Language: German Care Plan Goals: Mood and Behavioral Stabilization Abstain from substance use Health Concerns: Mood and Behavioral Stabilization Abstain from substance use Plan of Treatment: Attend scheduled appointments Take medications as directed Assessment: Pt leaves today on a three day notice of intent No SI/HI/AH/VH, sx of acute jhon or psychosis
== END 2024-04-26 11:48 | disposition home or self-care (01) | DRG 885 ==
PROVIDERS: Admitting Provider Psychiatry & Neurology Psychiatry; Visit Provider Clinical Nurse Specialist Psychiatric/Mental Health, Adult
DX: F25.9 Schizoaffective disorder, unspecified (principal); R45.851 Suicidal ideations; Z59.02 Unsheltered homelessness; F11.20 Opioid dependence, uncomplicated; F10.239 Alcohol dependence with withdrawal, unspecified; F17.210 Nicotine dependence, cigarettes, uncomplicated; L03.032 Cellulitis of left toe; F19.10 Other psychoactive substance abuse, uncomplicated; Z71.6 Tobacco abuse counseling; Z79.899 Other long term (current) drug therapy
CPT/HCPCS: 80307; 81001; 93005

== ENCOUNTER → 2024-04-14 15:45 | Outpatient (BNV) | payer OTHER, SELFPAY | PROVIDERS: Admitting Provider Psychiatry & Neurology Psychiatry; Visit Provider Physician Assistant | DX: L03.90 Cellulitis, unspecified (principal) | CPT/HCPCS: 99222 ==

== ENCOUNTER → 2024-04-14 15:45 | Outpatient (BNV) | payer OTHER, SELFPAY | PROVIDERS: Admitting Provider Psychiatry & Neurology Psychiatry; Visit Provider Clinical Nurse Specialist Psychiatric/Mental Health, Adult | DX: F25.9 Schizoaffective disorder, unspecified (principal); F11.20 Opioid dependence, uncomplicated; F19.90 Other psychoactive substance use, unspecified, uncomplicated | CPT/HCPCS: 90792; 99231; 99232 ==